=== PATIENT | male | born 1925 | race Two or more races ===

== ENCOUNTER 2016-07-03 11:10 | Inpatient (IN) | payer MEDICARE ==
[~2016-07-03] VITALS: Ht 177.8 cm; Wt 83.6 kg
[2016-07-03] MEDS ORDERED: CITA20TA4 PO (11:48)
[2016-07-03] MEDS ORDERED: FINA5TAB2 PO (11:48)
[2016-07-03] MEDS ORDERED: MORPHINE SULFATE 4 MG/ML INJ IV PUSH ONE (12:30)
[2016-07-03] MEDS ORDERED: ONDANSETRON HCL 4 MG/2 ML VIAL IV PUSH ONE (12:30)
--- NOTE | 2016-07-03 12:37 | PD ---
HPI Chief Complaint: Chest Pain Time Seen by Provider: 12:20 Travel History International Travel<30 days: No Contact w/Intl Traveler<30days: No Traveled to known affect area: No History of Present Illness HPI 89-year-old male complains of back pain. Patient states that the pain started about week ago and got progressively worse since then. Patient denies any recent injury. Patient states the pain is sharp pain localized in midback area. Patient denies any pain radiation. Patient states that the pain has been constant for the past week. Patient states the pain is worse with coughing or movement. Patient denies any chest pain or shortness of breath. Patient denies abdominal pain. Patient denies any dysuria or frequency. Patient denies any fever chills. Patient denies any focal weakness or numbness of extremity. Patient has history of enlarged prostate and on medication for that. On a scale of 1-10 the pain is a 10. PFSH Past Medical History Anxiety: Yes Diminished Hearing: No Genitourinary: Yes (prostate ) Tetanus Vaccination: Unknown Influenza Vaccination: Yes ?: Not Past Surgical History Abdominal Surgery: Yes (right ingunial hernia) Social History Alcohol Use: No Tobacco Use: No Substance Use: No Allergies-Medications (Allergen,Severity, Reaction): Coded Allergies: Penicillin (Verified Allergy, Unknown, rash, 07/03/16) Reported Meds & Prescriptions Reported Meds & Active Scripts Active Reported Citalopram (Citalopram Hydrobromide) 20 Mg Tab 20 Mg PO DAILY Finasteride 5 Mg Tab 5 Mg PO DAILY Do not crush. Review of Systems General / Constitutional: No: Fever Eyes: No: Visual changes HENT: No: Headaches Cardiovascular: No: Chest Pain or Discomfort Respiratory: No: Shortness of Breath Gastrointestinal: No: Abdominal Pain Genitourinary: No: Dysuria Musculoskeletal: No: Pain Skin: No Rash Neurologic: No: Weakness Psychiatric: No: Depression Endocrine: No: Polydipsia Hematologic/Lymphatic: No: Easy Bruising Physical Exam Narrative GENERAL: Well-nourished, well-developed patient. SKIN: Warm and dry. HEAD: Normocephalic. EYES: No scleral icterus. No injection or drainage. NECK: Supple, trachea midline. No JVD or lymphadenopathy. CARDIOVASCULAR: Regular rate and rhythm without murmurs, gallops, or rubs. RESPIRATORY: Breath sounds equal bilaterally. No accessory muscle use. GASTROINTESTINAL: Abdomen soft, non-tender, nondistended. MUSCULOSKELETAL: No cyanosis, or edema. BACK: Patient has moderate tenderness on palpation low thoracic upper lumbar area, without obvious deformity. No CVA tenderness. Negative straight leg raising Neurologic exam normal. Data Data Last Documented VS Vital Signs Date Time Temp Pulse Resp B/P Pulse Ox O2 Delivery O2 Flow Rate FiO2 07/03/16 13:39 80 20 156/69 98 Room Air Orders Complete Blood Count With Diff (07/03/16 12:28) Comprehensive Metabolic Panel (07/03/16 12:28) Prothrombin Time / Inr (Pt) (07/03/16 12:28) Act Partial Throm Time (Ptt) (07/03/16 12:28) Urinalysis - C+S If Indicated (07/03/16 12:28) Iv Access Insert/Monitor (07/03/16 12:28) Ecg Monitoring (07/03/16 12:28) Oximetry (07/03/16 12:28) Ct Thor Spine W/O Contrast (07/03/16 12:28) Ct Lumb Spine W/O Contrast (07/03/16 12:28) Morphine Inj (Morphine Inj) (07/03/16 12:30) Ondansetron Inj (Zofran Inj) (07/03/16 12:30) Hydromorphone Pf Inj (Dilaudid Pf Inj) (07/03/16 13:45) Chest, Single Ap (07/03/16 15:08) Labs Laboratory Tests Test 07/03/16 12:38 White Blood Count 4.4 TH/MM3 Red Blood Count 2.81 MIL/MM3 Hemoglobin 9.9 GM/DL Hematocrit 28.7 % Mean Corpuscular Volume 101.9 FL Mean Corpuscular Hemoglobin 35.0 PG Mean Corpuscular Hemoglobin 34.4 % Concent Red Cell Distribution Width 14.5 % Platelet Count 222 TH/MM3 Mean Platelet Volume 6.9 FL Neutrophils (%) (Auto) 64.7 % Lymphocytes (%) (Auto) 23.9 % Monocytes (%) (Auto) 7.9 % Eosinophils (%) (Auto) 2.1 % Basophils (%) (Auto) 1.4 % Neutrophils # (Auto) 2.8 TH/MM3 Lymphocytes # (Auto) 1.1 TH/MM3 Monocytes # (Auto) 0.3 TH/MM3 Eosinophils # (Auto) 0.1 TH/MM3 Basophils # (Auto) 0.1 TH/MM3 CBC Comment DIFF FINAL Differential Comment Prothrombin Time 11.0 SEC Prothromb Time International 1.0 RATIO Ratio Activated Partial 25.1 SEC Thromboplast Time Sodium Level 137 MEQ/L Potassium Level 4.1 MEQ/L Chloride Level 104 MEQ/L Carbon Dioxide Level 29.5 MEQ/L Anion Gap 4 MEQ/L Blood Urea Nitrogen 20 MG/DL Creatinine 1.50 MG/DL Estimat Glomerular Filtration 44 ML/MIN Rate Random Glucose 113 MG/DL Calcium Level 8.6 MG/DL Total Bilirubin 0.3 MG/DL Aspartate Amino Transf 28 U/L (AST/SGOT) Alanine Aminotransferase 27 U/L (ALT/SGPT) Alkaline Phosphatase 60 U/L Total Protein 11.7 GM/DL Albumin 3.1 GM/DL MDM Medical Decision Making Medical Screen Exam Complete: Yes Emergency Medical Condition: Yes Interpretation(s) Last Impressions Thoracic Spine CT 07/03/16 1228 Signed Impressions: Service Date/Time: Sunday, July 03, 2016 13:10 - CONCLUSION: Undermineralized bones with lytic lesions at multiple levels, as above, with the largest in the T6 vertebral body extending into the right pedicle. The abnormal process has destroyed the posterior cortex of the vertebral body and there is a mass extending into the spinal canal at this level measuring 11 x 6 mm and likely causing severe spinal canal stenosis. Given the appearance and multiplicity of lesions multiple myeloma or metastatic disease are the most likely etiology. Shayne Mcintosh MD Lumbar Spine CT 07/03/16 1228 Signed Impressions: Service Date/Time: Sunday, July 03, 2016 13:10 - CONCLUSION: Multiple lytic lesions involving the lower thoracic spine and lumbar spine characteristic of either metastatic disease or multiple myeloma. No evidence of pathologic fracture. Degenerative disc disease with spondylosis. Jason Torres MD 15 10 PM. CBC WBC of 4.4. Hemoglobin 9.9 hematocrit 40.7. MCV 101.9. BUN 20. Creatinine 1.5. Differential Diagnosis Differential diagnosis including strain, fracture, HNP . Narrative Course 89-year-old male back pain. Morphine 2 mg IV. Zofran 4 mg IV. Dilaudid 1 mg IV. Diagnosis Primary Impression: Bone metastasis Additional Impressions: Spinal stenosis Qualified Code: M48.05 - Spinal stenosis of thoracolumbar region Intractable pain Cheikh Duff MD Jul 03, 2016 12:37
[2016-07-03 12:46] LABS: AUTOMATED NEUTROPHIL # 2.8 TH/MM3 (1.8-7.7); BASOPHIL # 0.1 TH/MM3 (0-0.2); BASOPHIL % 1.4 % (0.0-2.0); EOSINOPHIL # 0.1 TH/MM3 (0-0.4); EOSINOPHIL % 2.1 % (0.0-4.0); HEMATOCRIT 28.7 % (39.0-51.0); HEMO FLAGS DIFF FINAL; LYMPH % 23.9 % (9.0-44.0); LYMPHOCYTE # 1.1 TH/MM3 (1.0-4.8); MEAN CELL VOLUME 101.9 FL (80.0-100.0); MEAN CORPUSCULAR HGB CONC 34.4 % (32.0-36.0); MONO % 7.9 % (0.0-8.0); NEUT % 64.7 % (16.0-70.0); PLATELET COUNT 222 TH/MM3 (150-450); RED BLOOD COUNT 2.81 MIL/MM3 (4.50-5.90); RED CELL DISTRIBUTION WIDTH 14.5 % (11.6-17.2); WHITE BLOOD COUNT 4.4 TH/MM3 (4.0-11.0)
[2016-07-03 12:56] LABS: CHLORIDE 104 MEQ/L (98-107); POTASSIUM 4.1 MEQ/L (3.5-5.1); SODIUM (NA) 137 MEQ/L (136-145)
[2016-07-03 12:59] LABS: ANION GAP 4 MEQ/L (5-15); BICARBONATE 29.5 MEQ/L (21.0-32.0)
[2016-07-03 13:00] LABS: APTT (PATIENT) 25.1 SEC (24.3-30.1); BLOOD UREA NITROGEN 20 MG/DL (7-18)
[2016-07-03 13:01] VITALS: O2SAT 98
[2016-07-03 13:02] LABS: ALT (GPT) 27 U/L (12-78); AST (GOT) 28 U/L (15-37)
[2016-07-03 13:03] LABS: GLOMERULAR FILTRATION RATE 44 ML/MIN (>89)
[2016-07-03 13:04] LABS: TOTAL BILIRUBIN ADULT 0.3 MG/DL (0.2-1.0)
[2016-07-03 13:05] LABS: ALKALINE PHOSPHATASE 60 U/L (45-117)
[2016-07-03 13:39] VITALS: BP 156/69; PULSE 80; RESP 20; O2SAT 98
[2016-07-03] MEDS ORDERED: HYDROmorphone HCL PF 1 MG/ML VIAL IV PUSH ONE (13:45)
--- NOTE | 2016-07-03 14:04 | RADHPO ---
EXAM DATE/TIME: 07/03/2016 13:10 [facility] COMPARISON: No previous studies available for comparison. INDICATIONS : Radiculopathy. No injury. RADIATION DOSE: 43.78 CTDIvol (mGy) ; Combined studies - Thoracic Spine/Lumbar Spine MEDICAL HISTORY : None SURGICAL HISTORY : Inguinal hernia repair. ENCOUNTER: Initial ACUITY: 1 week PAIN SCALE: 6/10 LOCATION: thoracic TECHNIQUE: Volumetric scanning of the thoracic spine was performed. Multiplanar reconstructions in the sagittal , coronal and oblique axial planes were performed. Using automated exposure control and adjustment o f the mA and/or kV according to patient size, radiation dose was kept as low as reasonably achievable to obtain optimal diagnostic quality images. FINDINGS: The bones are undermineralized and there are flowing anterior vertebral osteophytes. There is 4 mm of anterolisthesis of T1 on T2 likely related to facet hypertrophy. There is a lytic destructive lesion within the T6 vertebral body extending into the right pedicle. The T7-T11 vertebral bodies are very undermineralized but I believe there are lytic lesions within the T7, T8 and T11 vertebral bodies. Th ere also potential lytic lesions versus undermineralization within the visualized inferior cervical s pine. T1-T2: No disc herniation, canal stenosis, or neural foraminal stenosis is visualized. T2-T3: No disc herniation, canal stenosis, or neural foraminal stenosis is visualized. T3-T4: No disc herniation, canal stenosis, or neural foraminal stenosis is visualized. T4-T5: No disc herniation, canal stenosis, or neural foraminal stenosis is visualized. T5-T6: No disc herniation, canal stenosis, or neural foraminal stenosis is visualized. There is a destructiv e process which has destroyed the posterior cortex of the vertebral body. T6-T7: There is likely a mass extending from the vertebral body into the spinal canal. It measures approxima tely 11 x 6 mm. It is likely causing severe spinal canal stenosis. T7-T8: No disc herniation, canal stenosis, or neural foraminal stenosis is visualized. T8-T9: No disc herniation, canal stenosis, or neural foraminal stenosis is visualized. T9-T10: No disc herniation, canal stenosis, or neural foraminal stenosis is visualized. T10-T11: No disc herniation, canal stenosis, or neural foraminal stenosis is visualized. T11-T12: There is facet hypertrophy and a diffuse disc bulge. There are endplate osteophytes anteriorly. No sp inal canal or neural foraminal stenosis is visualized. T12-L1: No disc herniation, canal stenosis, or neural foraminal stenosis is visualized. There is a diffuse di sc bulge. The visualized paraspinous structures demonstrate no acute finding. CONCLUSION: Undermineralized bones with lytic lesions at multiple levels, as above, with the largest in the T6 ve rtebral body extending into the right pedicle. The abnormal process has destroyed the posterior rich x of the vertebral body and there is a mass extending into the spinal canal at this level measuring 1 1 x 6 mm and likely causing severe spinal canal stenosis. Given the appearance and multiplicity of le sions multiple myeloma or metastatic disease are the most likely etiology. Shayne Mcintosh MD on July 03, 2016 at 13:53 Board Certified Radiologist. This report was verified electronically.
--- NOTE | 2016-07-03 14:17 | RADHPO ---
EXAM DATE/TIME: 07/03/2016 13:10 [facility] COMPARISON: No previous studies available for comparison. INDICATIONS : Radiculopathy. No injury. RADIATION DOSE: 43.78 CTDIvol (mGy) ; Combined studies - Thoracic Spine/Lumbar Spine MEDICAL HISTORY : None SURGICAL HISTORY : Inguinal hernia repair. ENCOUNTER: Initial ACUITY: 1 week PAIN SCALE: 6/10 LOCATION: lumbar TECHNIQUE: Volumetric scanning of the lumbar spine was performed. Multiplanar reconstructions in the sagittal, coronal and oblique axial planes were performed. Using automated exposure control and adjustment of the mA and/or kV according to patient size, radiation dose was kept as low as reasonab ly achievable to obtain optimal diagnostic quality images. FINDINGS: A lumbar vertebral bodies are intact without evidence of compression deformity. There are several lytic lesions in both the lower thoracic spine and lumbar spine. In the lower thoracic spine there is a large lytic lesion within the T10 vertebral body. There is kane dence of erosion of the superior endplate. In the lumbar spine there are discrete radiolucent lesions in the right pedicle of L1 and L4. Bridging osteophytes are identified throughout the lumbar spine. There are no epidural or paraspinal soft tissue masses. CONCLUSION: Multiple lytic lesions involving the lower thoracic spine and lumbar spine characteri stic of either metastatic disease or multiple myeloma. No evidence of pathologic fracture. Degenerative disc disease with spondylosis. Jason Torres MD on July 03, 2016 at 14:07 Board Certified Radiologist. This report was verified electronically.
[2016-07-03 15:16] LABS: BLOOD, URINE TRACE (NEG); GLUCOSE,URINE NEG (NEG); KETONE, URINE TRACE mg/dL (NEG); NITRITE,URINE NEG (NEG)
[2016-07-03 15:22] LABS: URINE COLOR YELLOW (YELLW/STRAW)
[2016-07-03 15:24] LABS: COMMENT (UR) CULT NOT INDICATED; CULTURE IF INDICATED CULT NOT INDICATED; SQUAMOUS EPITHELIAL CELL URINE 0-5 /hpf (0-5)
[2016-07-03] MEDS ORDERED: ACETAMINOPHEN 325 MG TAB PO PRN (15:45)
[2016-07-03] MEDS ORDERED: MAGNESIUM HYDROXIDE SUSP 30 ML CUP PO PRN (15:45)
[2016-07-03] MEDS ORDERED: SODIUM CHLORIDE 0.9% FLUSH 5 ML FLUSH FLUSH PRN (15:45)
[2016-07-03] MEDS ORDERED: NALOXONE HCL 0.4 MG/ML AMP IV PRN (15:45)
[2016-07-03] MEDS ORDERED: SENNOSIDES 8.6 MG TAB PO PRN (15:45)
[2016-07-03 15:48] VITALS: BP 178/74; PULSE 98; RESP 20; O2SAT 98
[2016-07-03] MEDS: HEPARIN SODIUM - SQ 10,000 UNITS/ML VIAL SQ SCH (16:15)
--- NOTE | 2016-07-03 16:20 | RADHPO ---
EXAM DATE/TIME: 07/03/2016 15:25 [facility] COMPARISON: No previous studies available for comparison. INDICATIONS : Back pain. Short of breath MEDICAL HISTORY : None. SURGICAL HISTORY : None. ENCOUNTER: Initial ACUITY: 1 day PAIN SCORE: 5/10 LOCATION: spine FINDINGS: Portable AP view of the chest demonstrates a normal-sized cardiac silhouette with calcification of th e aorta. Multiple EKG lines overlie the patient. No effusion, consolidation, or pneumothorax is ident ified. Bones and soft tissues demonstrate no acute finding. CONCLUSION: No acute cardiopulmonary abnormality is identified. Shayne Mcintosh MD on July 03, 2016 at 16:15 Board Certified Radiologist. This report was verified electronically.
[2016-07-03] MEDS ORDERED: IOHEXOL 350 MG/ML 10 ML VIAL (for RAD DIAG) IV ONE (16:45)
[2016-07-03] MEDS: DOCUSATE SODIUM 100 MG CAP PO SCH (17:00)
--- NOTE | 2016-07-03 17:13 | RADHPO ---
EXAM DATE/TIME: 07/03/2016 16:23 [facility] COMPARISON: CT THORACIC SPINE W/O CONTRAST, July 03, 2016, 13:10. INDICATIONS : Short of breath, evaluate for mass. IV CONTRAST: 93 cc Omnipaque 350 (iohexol) IV RADIATION DOSE: 17.75 CTDIvol (mGy) MEDICAL HISTORY : None SURGICAL HISTORY : Inguinal hernia repair. ENCOUNTER: Initial ACUITY: 1 day PAIN SCALE: 4/10 LOCATION: chest TECHNIQUE: Volumetric scanning of the chest was performed. Using automated exposure control and adjustment of t he mA and/or kV according to patient size, radiation dose was kept as low as reasonably achievable to obtain optimal diagnostic quality images. FINDINGS: LUNGS: There is respiratory motion artifact. Dependent atelectasis is present within both lower lobes. No co nsolidation or pneumothorax is visualized. No pulmonary nodule is seen. PLEURA: There is no pleural thickening or pleural effusion. MEDIASTINUM: The heart and great vessels demonstrate no acute abnormality. There is coronary artery calcification and severe atherosclerotic disease of the aorta. There is no mediastinal or hilar lymphadenopathy. AXILLAE: Within normal limits. No lymphadenopathy. SKELETAL: There is a lytic lesion within T6 and likely other levels. Please refer to thoracic spine CT report f or further description. The ribs and sternum demonstrate no acute finding. MISCELLANEOUS: Please refer to abdomen and pelvis CT report for description of the subdiaphragmatic findings. There is bilateral gynecomastia. CONCLUSION: 1. Please refer to thoracic spine CT report for description of the lytic lesions within the spine. 2. There is respiratory motion artifact but no acute pulmonary abnormality is identified and no pulmo nary nodule is seen. 3. Nonacute findings include coronary artery calcification, severe atherosclerotic disease, and bilat eral gynecomastia. Shayne Mcintosh MD on July 03, 2016 at 17:08 Board Certified Radiologist. This report was verified electronically.
[2016-07-03 17:21] VITALS: BP 166/73; PULSE 108; RESP 18; O2SAT 98
--- NOTE | 2016-07-03 17:36 | RADHPO ---
EXAM DATE/TIME: 07/03/2016 16:23 [facility] COMPARISON: No previous studies available for comparison. INDICATIONS : Abdomen pain, evaluate for mass. IV CONTRAST: 93 cc Omnipaque 350 (iohexol) IV ORAL CONTRAST: No oral contrast ingested. RADIATION DOSE: 17.75 CTDIvol (mGy) ; Combined studies - Thorax/Abdomen/Pelvis MEDICAL HISTORY : None SURGICAL HISTORY : Inguinal hernia repair. ENCOUNTER: Initial ACUITY: 1 day PAIN SCALE: 4/10 LOCATION: abdomen TECHNIQUE: Volumetric scanning of the abdomen and pelvis was performed. Using automated exposure control and ad justment of the mA and/or kV according to patient size, radiation dose was kept as low as reasonably achievable to obtain optimal diagnostic quality images. FINDINGS: There is respiratory motion artifact. LOWER LUNGS: Please refer to chest CT report for description of the supradiaphragmatic findings. LIVER: Homogeneous density with a 6 mm cyst in the central liver. No other lesion is seen. There is no dila tion of the biliary tree. No calcified gallstones. SPLEEN: Normal size without lesion. PANCREAS: Within normal limits. KIDNEYS: Normal in size and shape. There is no mass, stone or hydronephrosis. There are 3 low density lesions in the left kidney measuring between 8 mm and 5.5 cm. There is a single 3.4 cm low-density lesion in the right mid kidney. All of these have density measurements characteristic of simple cysts. ADRENAL GLANDS: Within normal limits. VASCULAR: There is no aortic aneurysm. There is moderate atherosclerotic disease. BOWEL/MESENTERY: The stomach, small bowel, and colon demonstrate no acute abnormality. Groundglass attenuation is pre sent within the jejunal mesentery. There is mild sigmoid diverticulosis. There is no free intraperito clarisse air or fluid. ABDOMINAL WALL: Within normal limits. RETROPERITONEUM: There is no lymphadenopathy. BLADDER: No wall thickening or mass. REPRODUCTIVE: The prostate gland is enlarged. INGUINAL: There is no lymphadenopathy or hernia. MUSCULOSKELETAL: Please refer to lumbar spine CT report for description of the lumbar spine findings. Otherwise, no ac [place] osseous abnormality is visualized. CONCLUSION: 1. No acute finding is identified in the abdomen or pelvis. Please refer to lumbar spine CT for descr iption of the lumbar spine findings. 2. Nonacute findings include bilateral renal cysts, severe atherosclerotic disease, sigmoid diverticu losis, and prostatomegaly. Shayne Mcintosh MD on July 03, 2016 at 17:19 Board Certified Radiologist. This report was verified electronically.
--- NOTE | 2016-07-03 19:34 | RADHPO ---
EXAM DATE/TIME: 07/03/2016 18:14 [facility] COMPARISON: CT LUMBAR SPINE W/O CONTRAST, July 03, 2016, 13:10. CT THORACIC SPINE W/O CONTRAST, July 03, 2016, 13:10. INDICATIONS : Pain MEDICAL HISTORY : None. SURGICAL HISTORY : ENCOUNTER: Initial ACUITY: 1 day PAIN SCORE: 8/10 LOCATION: Spine FINDINGS: Bone survey was performed of the axial and appendicular skeleton. The upper extremities are unremarkable. The lower extremities are demonstrate no abnormality. Patient has a known scattered lytic lesions of the thoracic and lumbar spines and please refer to the CT spine report. Don't clearly see a lytic lesion of the cervical spine. 3 bulky osteophyte formatio n seen anteriorly and widely the C5/C6.. Suspected parietal lytic lesions measuring 6 and 10 mm.. The visualized heart, lungs and abdominal structures are unremarkable. Bony mineralization is normal . CONCLUSION: The known thoracic and lumbar spine lytic lesions are not well seen radiographically. Please refer to the CT report. There degenerative changes without definite lytic lesion of the cervical spine. There are 6 and 9 mm lesions suspected of the skull. Shayne Singh MD on July 03, 2016 at 19:29 Board Certified Radiologist. This report was verified electronically.
[2016-07-03 20:01] VITALS: BP 137/60
[2016-07-03 20:58] VITALS: BP 145/81; PULSE 90; RESP 17; TEMP 99; O2SAT 94
[2016-07-03 21:04] LABS: URINE TOTAL PROTEIN TIMED 22.1 MG/DL
[2016-07-03 21:59] LABS: TOTAL PROTEIN SPE 11.6 GM/DL (6.0-7.6)
[2016-07-04] VITALS (9 sets, daily range): BP systolic 115–169; BP diastolic 54–72; PULSE 55–88; RESP 16–18; TEMP 98.3–99.1; O2SAT 92–99
[2016-07-04] MEDS: SODIUM CHLORIDE 0.9% FLUSH 5 ML FLUSH FLUSH SCH ×3 (00:17→22:08)
[2016-07-04] MEDS: MORPHINE SULFATE 4 MG/ML INJ IV PUSH PRN ×5 (00:17→23:12)
[2016-07-04] MEDS: HEPARIN SODIUM - SQ 10,000 UNITS/ML VIAL SQ SCH ×2 (04:31→13:49)
[2016-07-04] MEDS: DOCUSATE SODIUM 100 MG CAP PO SCH ×2 (04:32→17:56)
--- NOTE | 2016-07-04 06:01 | MB ---
cc: JESSICA NEELY HUNG M.D. DATE OF 02/04/1926 DATE OF SERVICE 07/03/[address] Cheikh Duff CHIEF COMPLAINT [address]. Duff requested consultation with Mr. Davey regarding lytic bone lesions suspicious for metastatic malignant melanoma. HISTORY OF PRESENT ILLNESS Mr. Davey is an 89-year-old man who reports no significant past history. He has anxiety and benign prostatic hypertrophy. He denies any previous cancer. His father lived to be 96. His mother lived to be 92 at. He is 89 years old now. He has not known himself to be anemic. He was found to have a hemoglobin of 9.9 on admission, MCV 101.9. His renal function is decreased at 44%. BUN of 20, creatinine 1.5. His total protein is elevated at 11.7. He came in because of chest pain. He has noted pain that became progressively worse radiating from the back. His pain was 10/10. He reports that he is otherwise active. He does cooking, gardening and is active around the house. He is now retired. He denies any injury or excessive lifting to produce the pain. Imaging study during his ER visit shows under-mineralized bones with lytic lesions of multiple levels, the largest in the T6 vertebral body, extends into the right pedicle. There is a mass extending into the spinal canal at T6. The mass measures 11 x 6-mm. There is a severe canal stenosis and there is a multiplicity of lytic lesions concerning for multiple myeloma versus metastatic cancer. CT scan of the chest shows respiratory motion artifact. There is no pulmonary nodules. CT scan of the abdomen shows bilateral renal cysts, atherosclerotic disease, sigmoid diverticulosis and prostate enlargement. He denies any fevers, chills or night sweats. He has not been sick before. His pain came along; it has gotten progressively worse. He denies any headaches, no vision changes. He is eager to return back home. He is worried about his not being able to drive at night. He has some difficulty with urination. He denies any problems with his bowel movements. Denies any bleeding. No melena or bright red blood per rectum. He had no prior history of anemia before. PAST MEDICAL HISTORY Anxiety. Benign prostatic hypertrophy. PAST SURGICAL HISTORY Right inguinal hernia repair. SOCIAL HISTORY Denies any tobacco, alcohol or illicit drug use. He is , lives with his . He is retired from [employer]. He worked in [place] before retiring to the [employer]. He has three children; two are in [place] and one in [place] also. ALLERGIES PENICILLIN. CURRENT MEDICATIONS 1. Finasteride. 2. Citalopram. FAMILY HISTORY No family history of cancer. Both parents lived to be in their 90s. He reports a sister with also bone cancer who was from [place]. PHYSICAL EXAMINATION VITAL SIGNS: Temperature - afebrile, heart rate 108, respiratory rate 18, blood pressure 166/73, saturation 98%. GENERAL: Mr. Davey is a well-developed, well-nourished man who looks younger than stated age. He looks anxious. HEENT: His pupils are round, reactive to light and accommodation. Oropharynx is clear. NECK: Supple with no adenopathy. LUNGS: Clear. CARDIOVASCULAR: Exam reveals normal rate and rhythm. ABDOMEN: Benign. LOWER EXTREMITIS: With no clubbing, cyanosis or edema. NEUROLOGICAL EXAM: Nonfocal. IMAGING STUDIES Reviewed. ASSESSMENT AND PLAN Mr. Davey is an 89-year-old man with anxiety and benign prostatic hypertrophy. He presents with chest pain and turns out to have a T6 lesion. He has multiple lesions on imaging evaluation of both thoracic and lumbar spine. I had a lengthy discussion with Mr. Davey and his present at the consultation. In light of the anemia, renal insufficiency and elevated total protein, the picture is very consistent with multiple myeloma. He will need a skeletal survey to confirm a diagnosis. Furthermore, we will need a bone marrow biopsy evaluation to determine the nature of his multiple myeloma involvement. We discussed there are many treatments for multiple myeloma. He is anxious to start them. We discussed the primary objective is to stabilize his thoracic spine. We will defer to Neurosurgery if additional stabilization is necessary. We will see if he is a candidate for kyphoplasty. In the meantime his pain is managed with p.r.n. morphine. We will monitor closely constipation symptoms. Interestingly, his calcium is not elevated. We will check other causes for macrocytosis such as B12 and folate deficiency. Quantitative immunoglobulins will be checked. A serum protein electrophoresis has already been ordered. We will complement that with an immunofixation. Mr. Davey and his 's questions were answered to their satisfaction. MD VANDANA Reynaga/STEVE /6:00 PM /5:47 AM
[2016-07-04 06:24] LABS: AUTOMATED NEUTROPHIL # 2.5 TH/MM3 (1.8-7.7); BASOPHIL % 0.5 % (0.0-2.0); EOSINOPHIL # 0.1 TH/MM3 (0-0.4); HEMATOCRIT 27.5 % (39.0-51.0); HEMO FLAGS DIFF FINAL; LYMPH % 27.3 % (9.0-44.0); LYMPHOCYTE # 1.1 TH/MM3 (1.0-4.8); MEAN CELL VOLUME 101.4 FL (80.0-100.0); MEAN CORPUSCULAR HEMOGLOBIN 35.6 PG (27.0-34.0); MEAN CORPUSCULAR HGB CONC 35.1 % (32.0-36.0); MONO % 9.6 % (0.0-8.0); NEUT % 60.6 % (16.0-70.0); PLATELET COUNT 200 TH/MM3 (150-450); RED BLOOD COUNT 2.71 MIL/MM3 (4.50-5.90); RED CELL DISTRIBUTION WIDTH 14.9 % (11.6-17.2); WHITE BLOOD COUNT 4.2 TH/MM3 (4.0-11.0)
[2016-07-04 06:40] LABS: BICARBONATE 29.7 MEQ/L (21.0-32.0)
[2016-07-04] MEDS ORDERED: GADODIAMIDE PF 287 MG/ML 5 ML VIAL (for RAD MRI) IV ONE (11:07)
--- NOTE | 2016-07-04 11:33 | HHI.HP ---
[facility] Service [facility] Primary Care Physician Dr. Landin Admission Diagnosis spine metastasis. Intractable pain Diagnoses: Chief Complaint: BACK PAIN, WEAKNESS (Delilah Singh) Travel History International Travel<30 Days: No Contact w/Intl Traveler <30 Da: No Traveled to Known Affected Are: No (Delilah Singh) History of Present Illness Pt. is an an 89-year-old man who reports no significant past history other than anxiety, BPH. Patient presented to the emergency room complaining of mid to low back pain for the last week, nor recent injury, no falls. Indicates the pain is sharp and localized to the mid to lower back area. Denies any paresthesias. No loss of bowel or bladder function. No fever, no chills. No other symptoms such as chest pain shortness of breath. No urinary symptoms. Indicates that pain became so severe that he was having difficulty getting up from bed. Patient indicates he is very healthy and was very active until now. Patient presented to the emergency room where he was evaluated and was noted with anemia which is a new finding. Denies any blood on the stool, weight loss. Denies any hematemesis. He was noted with some renal insufficiency which is also a new finding. He had imaging studies in the ER showing undermineralized bones with lytic lesions of multiple levels, the largest in the T6 vertebral body, extends into the right pedicle. There is a mass extending to the spinal canal at T6. The mass measures 11 x 6 mm. There is severe canal stenosis and there is a multiplicity of white thick lesions concerning for multiple myeloma versus metastatic cancer. CT scan of the chest shows respiratory motion artifact, no pulmonary nodules. CT scan of the abdomen shows bilateral renal cysts, atherosclerotic disease, sigmoid diverticulosis and prostate enlargement. Patient was evaluated by Dr. Razo. Bone marrow biopsy was order and has been completed. Patient endorses family history of cancer, one brother from colon cancer. Patient is admitted for further evaluation and treatment. (Delilah Singh) Review of Systems Constitutional: DENIES: Diaphoretic episodes, Fatigue, Fever, Weight gain, Weight loss, Chills, Dizziness, Change in appetite, Night Sweats Endocrine: DENIES: Heat/cold intolerance, Polydipsia, Polyuria, Polyphagia Eyes: DENIES: Blurred vision, Diplopia, Eye inflammation, Eye pain, Vision loss , Photosensitivity, Double Vision Ears, nose, mouth, throat: DENIES: Tinnitus, Hearing loss, Vertigo, Nasal discharge, Oral lesions, Throat pain, Hoarseness, Ear Pain, Running Nose, Epistaxis, Sinus Pain, Toothache, Odynophagia Respiratory: DENIES: Apneas, Cough, Snoring, Wheezing, Hemoptysis, Sputum production, Shortness of breath Cardiovascular: DENIES: Chest pain, Palpitations, Syncope, Dyspnea on Exertion , PND, Lower Extremity Edema, Orthopnea, Claudication Gastrointestinal: DENIES: Abdominal pain, Black stools, Bloody stools, Constipation, Diarrhea, Nausea, Vomiting, Difficulty Swallowing, Anorexia Musculoskeletal: COMPLAINS OF: Joint pain, Muscle aches, Stiffness, Joint Swelling, Back pain, Neck pain Integumentary: DENIES: Abnormal pigmentation, Nail changes, Pruritus, Rash Hematologic/lymphatic: DENIES: Bruising, Lymphadenopathy Immunologic/allergic: DENIES: Eczema, Urticaria Neurologic: DENIES: Abnormal gait, Headache, Localized weakness, Paresthesias, Seizures, Speech Problems, Tremor, Poor Balance Psychiatric: DENIES: Anxiety, Confusion, Mood changes, Depression, Hallucinations, Agitation, Suicidal Ideation, Homicidal Ideation, Delusions ( Delilah Singh) Past Family Social History Past Medical History Anxiety. Benign prostatic hypertrophy. Past Surgical History Appendectomy Right inguinal hernia repair. Reported Medications Reported Meds & Active Scripts Active Reported Citalopram (Citalopram Hydrobromide) 20 Mg Tab 20 Mg PO DAILY Finasteride 5 Mg Tab 5 Mg PO DAILY Do not crush. (Delilah Singh) Allergies: Coded Allergies: Penicillin (Verified Allergy, Unknown, rash, 07/03/16) Active Ordered Medications Inpatient Medications Acetaminophen (Tylenol) 650 mg ONCE ONCE PO Last administered on 07/04/16 13: 48; Start 07/04/16 at 13:45; Stop 07/04/16 at 13:46; Status DC Docusate Sodium (Colace) 100 mg Q12H PO Last administered on 07/04/16 17:56; Start 07/03/16 at 17:00 Heparin Sodium (Porcine) (Heparin Inj) 5,000 units Q12H SQ Last administered on 07/04/16 04:31; Start 07/03/16 at 16:00 Hydromorphone HCl (Dilaudid Pf Inj) 1 mg ONCE ONCE IV PUSH Last administered on 07/03/16 13:52; Start 07/03/16 at 13:45; Stop 07/03/16 at 13:46; Status DC IV Flush (NS Flush) 2 ml BID FLUSH Last administered on 07/04/16 08:32; Start 07/03/16 at 21:00 Magnesium Hydroxide (Milk Of Magnesia Liq) 30 ml Q12H PRN PO CONSTIPATION; Start 07/03/16 at 15:45 Morphine Sulfate (Morphine Inj) 2 mg Q3H PRN IV PUSH PAIN SCALE 4 TO 10 Last administered on 07/04/16 17:55; Start 07/03/16 at 18:15 Naloxone HCl (Narcan Inj) 0.4 mg UNSCH PRN IV SEE LABEL COMMENTS; Start at 15:45 Ondansetron HCl (Zofran Inj) 4 mg ONCE ONCE IV PUSH Last administered on 12:49; Start 07/03/16 at 12:30; Stop 07/03/16 at 12:32; Status DC Sennosides (Senokot) 17.2 mg Q12H PRN PO CONSTIPATION; Start 07/03/16 at 15:45 Family History Mother from old age, hx HTN Father, not sure. Brother from colon cancer Social History Lives at home with , has 3 grown children. Very active, no alcohol, no substance abuse, tobacco abuse (Delilah Singh) Physical Exam Vital Signs Vital Signs Date Time Temp Pulse Resp B/P Pulse Ox O2 Delivery O2 Flow Rate FiO2 07/04/16 08:00 99.1 65 16 138/65 98 07/04/16 04:25 99.0 79 17 132/62 97 07/04/16 00:25 98.7 88 18 130/61 93 07/04/16 00:22 18 07/03/16 20:58 99.0 90 17 145/81 94 07/03/16 20:01 84 16 137/60 94 07/03/16 17:21 108 18 166/73 98 Room Air 07/03/16 15:48 98 20 178/74 98 Room Air 07/03/16 13:39 80 20 156/69 98 Room Air 07/03/16 13:02 20 98 Room Air 3/6/17 13:01 98 Room Air Physical Exam GENERAL: This is a well-nourished, well-developed patient, in no apparent distress. SKIN: No rashes, ecchymoses or lesions. Cool and dry. HEAD: Atraumatic. Normocephalic. No temporal or scalp tenderness. EYES: Pupils equal round and reactive. Extraocular motions intact. No scleral icterus. No injection or drainage. ENT: Nose without bleeding, purulent drainage or septal hematoma. Throat without erythema, tonsillar hypertrophy or exudate. Uvula midline. Airway patent. NECK: Trachea midline. No JVD or lymphadenopathy. Supple, nontender, no meningeal signs. CARDIOVASCULAR: Regular rate and rhythm without murmurs, gallops, or rubs. RESPIRATORY: Clear to auscultation. Breath sounds equal bilaterally. No wheezes , rales, or rhonchi. GASTROINTESTINAL: Abdomen soft, non-tender, nondistended. No hepato-splenomegaly , or palpable masses. No guarding. MUSCULOSKELETAL: No joint abnormality. Complains of tenderness on palpation to the low thoracic upper lumbar area. No obvious deformity noted. Negative straight leg rising. NEUROLOGICAL: Awake and alert. Cranial nerves II through XII intact. Motor and sensory grossly within normal limits. Five out of 5 muscle strength in all muscle groups. Normal speech. Laboratory Laboratory Tests Test 07/03/16 07/03/16 07/03/16 07/03/16 12:38 15:00 16:00 17:08 White Blood Count 4.4 Red Blood Count 2.81 Hemoglobin 9.9 Hematocrit 28.7 Mean Corpuscular Volume 101.9 Mean Corpuscular Hemoglobin 35.0 Mean Corpuscular Hemoglobin 34.4 Concent Red Cell Distribution Width 14.5 Platelet Count 222 Mean Platelet Volume 6.9 Neutrophils (%) (Auto) 64.7 Lymphocytes (%) (Auto) 23.9 Monocytes (%) (Auto) 7.9 Eosinophils (%) (Auto) 2.1 Basophils (%) (Auto) 1.4 Neutrophils # (Auto) 2.8 Lymphocytes # (Auto) 1.1 Monocytes # (Auto) 0.3 Eosinophils # (Auto) 0.1 Basophils # (Auto) 0.1 CBC Comment DIFF FINAL Differential Comment Prothrombin Time 11.0 Prothromb Time International 1.0 Ratio Activated Partial 25.1 Thromboplast Time Sodium Level 137 Potassium Level 4.1 Chloride Level 104 Carbon Dioxide Level 29.5 Anion Gap 4 Blood Urea Nitrogen 20 Creatinine 1.50 Estimat Glomerular Filtration 44 Rate Random Glucose 113 Calcium Level 8.6 Total Bilirubin 0.3 Aspartate Amino Transf 28 (AST/SGOT) Alanine Aminotransferase 27 (ALT/SGPT) Alkaline Phosphatase 60 Total Protein 11.7 11.6 Albumin 3.1 Vitamin B12 Level 270 25-Hydroxy Vitamin D Total 39.5 Urine Color YELLOW Urine Turbidity CLEAR Urine pH 6.0 Urine Specific [place] 1.026 Urine Protein NEG Urine Glucose (UA) NEG Urine Ketones TRACE Urine Occult Blood TRACE Urine Nitrite NEG Urine Bilirubin NEG Urine Leukocyte Esterase NEG Urine Squamous Epithelial 0-5 Cells Microscopic Urinalysis Comment CULT NOT INDICATED Erythrocyte Sedimentation Rate 100 Prostate Specific Antigen 1.02 Test 07/04/16 06:00 White Blood Count 4.2 Red Blood Count 2.71 Hemoglobin 9.7 Hematocrit 27.5 Mean Corpuscular Volume 101.4 Mean Corpuscular Hemoglobin 35.6 Mean Corpuscular Hemoglobin 35.1 Concent Red Cell Distribution Width 14.9 Platelet Count 200 Mean Platelet Volume 7.9 Neutrophils (%) (Auto) 60.6 Lymphocytes (%) (Auto) 27.3 Monocytes (%) (Auto) 9.6 Eosinophils (%) (Auto) 2.0 Basophils (%) (Auto) 0.5 Neutrophils # (Auto) 2.5 Lymphocytes # (Auto) 1.1 Monocytes # (Auto) 0.4 Eosinophils # (Auto) 0.1 Basophils # (Auto) 0.0 CBC Comment DIFF FINAL Differential Comment Sodium Level 137 Potassium Level 4.0 Chloride Level 103 Carbon Dioxide Level 29.7 Anion Gap 4 Blood Urea Nitrogen 19 Creatinine 1.37 Estimat Glomerular Filtration 49 Rate Random Glucose 94 Calcium Level 8.8 Immunoglobulin G Total 6070 Immunoglobulin A 33 Immunoglobulin M 19 (Delilah Singh) Result Diagram: 07/04/16 0600 07/04/16 0600 Imaging Last Impressions Bone Biopsy CT 07/04/16 1007 Signed Impressions: Service Date/Time: Monday, July 04, 2016 15:36 - CONCLUSION: 1. Uncomplicated CT guided bone marrow aspirate. 2. Uncomplicated CT guided bone marrow biopsy. Shayne Mcintosh MD Entire Spine MRI 07/04/16 0000 Signed Impressions: Service Date/Time: Monday, July 04, 2016 10:34 - CONCLUSION: 1. Innumerable bone lesions throughout the cervical, thoracic, and lumbar spine. The largest occupies the T6 and T10 vertebral bodies. 2. The prior CT suggested a possible mass extending from T6 into the spinal canal. However, there is no spinal canal mass at this level or spinal canal stenosis. 3. There is moderate spinal canal stenosis at L3-L4 secondary to disc bulge and facet and ligamentum flavum hypertrophy. Shayne Mcintosh MD Chest CT 07/03/16 1536 Signed Impressions: Service Date/Time: Sunday, July 03, 2016 16:23 - CONCLUSION: 1. Please refer to thoracic spine CT report for description of the lytic lesions within the spine. 2. There is respiratory motion artifact but no acute pulmonary abnormality is identified and no pulmonary nodule is seen. 3. Nonacute findings include coronary artery calcification, severe atherosclerotic disease, and bilateral gynecomastia. hSayne Mcintosh MD Abdomen/Pelvis CT 07/03/16 1536 Signed Impressions: Service Date/Time: Sunday, July 03, 2016 16:23 - CONCLUSION: 1. No acute finding is identified in the abdomen or pelvis. Please refer to lumbar spine CT for description of the lumbar spine findings. 2. Nonacute findings include bilateral renal cysts, severe atherosclerotic disease, sigmoid diverticulosis, and prostatomegaly. Shayne Mcintosh MD Chest X-Ray 07/03/16 1508 Signed Impressions: Service Date/Time: Sunday, July 03, 2016 15:25 - CONCLUSION: No acute cardiopulmonary abnormality is identified. Shayne Mcintosh MD Thoracic Spine CT 07/03/16 1228 Signed Impressions: Service Date/Time: Sunday, July 03, 2016 13:10 - CONCLUSION: Undermineralized bones with lytic lesions at multiple levels, as above, with the largest in the T6 vertebral body extending into the right pedicle. The abnormal process has destroyed the posterior cortex of the vertebral body and there is a mass extending into the spinal canal at this level measuring 11 x 6 mm and likely causing severe spinal canal stenosis. Given the appearance and multiplicity of lesions multiple myeloma or metastatic disease are the most likely etiology. Shayne Mcintosh MD Lumbar Spine CT 07/03/16 1018 Signed Impressions: Service Date/Time: Sunday, July 03, 2016 13:10 - CONCLUSION: Multiple lytic lesions involving the lower thoracic spine and lumbar spine characteristic of either metastatic disease or multiple myeloma. No evidence of pathologic fracture. Degenerative disc disease with spondylosis. Jason Torres MD Bone Osseous Survey 07/03/16 0000 Signed Impressions: Service Date/Time: Sunday, July 03, 2016 18:14 - CONCLUSION: The known thoracic and lumbar spine lytic lesions are not well seen radiographically. Please refer to the CT report. There degenerative changes without definite lytic lesion of the cervical spine. There are 6 and 9 mm lesions suspected of the skull. Shayne Singh MD (Delilah Singh) Assessment and Plan Problem List: (1) Intractable pain (2) Bone metastasis (3) Anemia (4) Renal insufficiency (5) Spinal stenosis Assessment and Plan Admit to Dr. Acosta 89-year-old elderly male presented to the emergency room with intractable low back pain, found with multiple light pink lesion along the spine, largest in the T6 vertebral body as well as a mass extending into the spinal canal likely causing severe spinal canal stenosis area possible multiple myeloma versus metastatic disease. Patient status post bone marrow biopsy -Dr. Razo has been consulted, her input is appreciated Neurosurgery evaluation as well -Continue with pain management -Follow up on results of bone marrow biopsy Anemia, this is a new finding. Denies any blood in his stool. -Further workup per oncology Follow CBC Renal insufficiency, this is a new finding Continue cautious hydration Follow BMP History of enlarged prostate Continue with finasteride 5 mg by mouth daily For DVT prophylaxis, SCDs, resume heparin tomorrow Plan of care has been discussed with the patient, attending and registered nurse. Further management of the patient will be dependent on hospital course This patient was seen by myself and Dr. Acosta, this H&P is written on his behalf (Delilah Singh) Assessment and Plan seen, examined by myself, Dr Acosta, today Discussed with patient Discussed with oncology team Suspected multiple myeloma Bone marrow biopsy today Possible discharge tomorrow Discussed with mid level provider The exam, history, and the medical decision-making described in the above note were completed with the assistance of the mid-level provider. I reviewed the findings presented. I attest that I had a [id number] encounter with the patient on the same day, and personally performed and documented my assessment and findings in the medical record. (José Miguel Acosta MD) Physician Certification 2 Midnight Certification Type: Admission for Inpatient Services Order for Inpatient Services The services are ordered in accordance with Medicare regulations or non- Medicare payer requirements, as applicable. In the case of services not specified as inpatient-only, they are appropriately provided as inpatient services in accordance with the 2-midnight benchmark. Estimated LOS (days): 2 2 days is the estimated time the patient will need to remain in the hospital, assuming treatment plan goals are met and no additional complications. Post-Hospital Plan: SNF (Delilah Singh) Problem Qualifiers (1) Anemia: Qualified Code: D64.9 - Anemia, unspecified type (2) Spinal stenosis: Qualified Code: M48.05 - Spinal stenosis of thoracolumbar region Delilah Singh Jul 04, 2016 11:33 José Miguel Acosta MD Jul 04, 2016 20:52
[2016-07-04 11:59] LABS: ALBUMIN SPE 4.37 GM/DL (3.50-5.00); ALPHA 1 GLOBULIN 0.29 GM/DL (0.11-0.29); ALPHA 2 GLOBULIN 0.79 GM/DL (0.22-1.00); BETA GLOBULINS (SPE) 0.7 GM/DL (0.53-1.03)
--- NOTE | 2016-07-04 12:48 | RADRPT ---
EXAM DATE/TIME: 07/04/2016 10:34 [facility] COMPARISON: CT ABDOMEN & PELVIS W CONTRAST, July 03, 2016, 16:23. CT LUMBAR SPINE W/O CONTRAST, July 03, 2016, 13:10. CT THORACIC SPINE W/O CONTRAST, July 03, 2016, 13:10. CT THORAX W CONTRAST, July 03, 2016 , 16:23. INDICATIONS : Metastatic disease. CONTRAST: 15 cc Omniscan (gadodiamide) IV MEDICAL HISTORY : Benign prostatic hyperplasia, (BPH) SURGICAL HISTORY : Inguinal hernia repair. ENCOUNTER: Initial ACUITY: 2 day PAIN SCORE: 8/10 LOCATION: back TECHNIQUE: Screening MRI of the entire spinal axis was performed in the sagittal and axial planes. FINDINGS: There are innumerable T1 hypointense and T2 hyperintense enhancing lesions throughout the cervical, t horacic, and lumbar spine. The largest lesions are within the T6 vertebral body and T10 vertebral bod y. There is also a lesion within the L2 spinous process. Vertebral body height is maintained. There i s 3 mm of anterolisthesis of T1 on a T2. Otherwise, no other anterolisthesis or retrolisthesis is pre sent. Within the cervical spine no significant canal stenosis is present. There is facet arthrosis at T1-T2 . Within the thoracic spine there are and plates anteriorly at almost all levels. But was thought to re present a mass at the T6 level was actually the spinal cord. The lesion within the T6 vertebral body extends into the right pedicle and mildly bulges the posterior cortex but does not extend into the ca nal. Within the lumbar spine there is facet and ligamentum hypertrophy at T12-L1 mildly narrowing the bashir l. There are is a diffuse disc bulge with facet and ligamentum flavum hypertrophy at L3-L4 causing mo derate spinal canal stenosis. The visualized surrounding structures demonstrate no acute finding. CONCLUSION: 1. Innumerable bone lesions throughout the cervical, thoracic, and lumbar spine. The largest occupies the T6 and T10 vertebral bodies. 2. The prior CT suggested a possible mass extending from T6 into the spinal canal. However, there is no spinal canal mass at this level or spinal canal stenosis. 3. There is moderate spinal canal stenosis at L3-L4 secondary to disc bulge and facet and ligamentum flavum hypertrophy. Shyane Mcintosh MD on July 04, 2016 at 12:35 Board Certified Radiologist. This report was verified electronically.
--- NOTE | 2016-07-04 13:06 | PD.CONS ---
[facility] Service Neurosurg Consult Requested By dr ly Reason for Consult metastasis to spine Primary Care Physician Non-Staff History of Present Illness This is an 89-year-old man with history of anxiety and benign prostatic hypertrophy. He denies any previous cancer. Mr. Davey came to the ER with chest pain. He has noted pain that became progressively worse radiating from the back. His pain was described as 10/. CT scan done at [facility] showed under-mineralized bones with lytic lesions of multiple levels, the largest in the T6 vertebral body, extends into the right pedicle. Apparently he was found to have a hemoglobin of 9.9 and a decreased renal function to 44%. CT scan of the chest showed no pulmonary nodules. He denies any fevers, chills or night sweats. He has not been sick before. His pain has gotten progressively worse. He denies any headaches or vision changes. A neurosurgical consultation was requested Review of Systems Constitutional: DENIES: Diaphoretic episodes, Fatigue, Fever, Weight gain, Weight loss, Chills, Dizziness, Change in appetite, Night Sweats Endocrine: DENIES: Heat/cold intolerance, Polydipsia, Polyuria, Polyphagia Eyes: DENIES: Blurred vision, Diplopia, Eye inflammation, Eye pain, Vision loss , Photosensitivity, Double Vision Ears, nose, mouth, throat: DENIES: Tinnitus, Hearing loss, Vertigo, Nasal discharge, Oral lesions, Throat pain, Hoarseness, Ear Pain, Running Nose, Epistaxis, Sinus Pain, Toothache, Odynophagia Respiratory: DENIES: Apneas, Cough, Snoring, Wheezing, Hemoptysis, Sputum production, Shortness of breath Cardiovascular: COMPLAINS OF: Chest pain, DENIES: Palpitations, Syncope, Dyspnea on Exertion, PND, Lower Extremity Edema, Orthopnea, Claudication Gastrointestinal: DENIES: Abdominal pain, Black stools, Bloody stools, Constipation, Diarrhea, Nausea, Vomiting, Difficulty Swallowing, Anorexia Genitourinary: DENIES: Sexual dysfunction, Urinary frequency, Urinary incontinence, Urgency, Hematuria, Dysuria, Nocturia, Penile Discharge, Testicular Pain, Testicular Swelling Musculoskeletal: COMPLAINS OF: Joint pain, Muscle aches, Back pain, DENIES: Stiffness, Joint Swelling, Neck pain Integumentary: DENIES: Abnormal pigmentation, Nail changes, Pruritus, Rash Immunologic/allergic: DENIES: Eczema, Urticaria Neurologic: DENIES: Abnormal gait, Headache, Localized weakness, Paresthesias, Seizures, Speech Problems, Tremor, Poor Balance Psychiatric: DENIES: Anxiety, Confusion, Mood changes, Depression, Hallucinations, Agitation, Suicidal Ideation, Homicidal Ideation, Delusions Past Family Social History Allergies: Coded Allergies: Penicillin (Verified Allergy, Unknown, rash, 07/03/16) Past Medical History Anxiety. Benign prostatic hypertrophy. Past Surgical History Right inguinal hernia repair. Reported Medications reviewed in EMR Active Ordered Medications 1. Finasteride. 2. Citalopram. Family History non contributory Social History Denies any tobacco, alcohol or illicit drug use. He is , lives with his . He has three children; two are in [place] and one in [place] also. Physical Exam Vital Signs Vital Signs Date Time Temp Pulse Resp B/P Pulse Ox O2 Delivery O2 Flow Rate FiO2 07/04/16 12:00 98.3 78 17 169/72 99 07/04/16 08:00 99.1 65 16 138/65 98 07/04/16 04:25 99.0 79 17 132/62 97 07/04/16 00:25 98.7 88 18 130/61 93 07/04/16 00:22 18 07/03/16 20:58 99.0 90 17 145/81 94 07/03/16 20:01 84 16 137/60 94 07/03/16 17:21 108 18 166/73 98 Room Air 07/03/16 15:48 98 20 178/74 98 Room Air 07/03/16 13:39 80 20 156/69 98 Room Air 07/03/16 13:02 20 98 Room Air Physical Exam The patient is alert, awake and oriented to time, place and person. Speech is fluent in Yoruba. Cranial nerve examination demonstrates the pupils to be equal, round, and reactive to light. Extra-ocular movements are intact. Facial motor and sensory function are normal and symmetrical. Gross hearing is decxreased bilaterally. The uvula is midline and elevates symmetrically with the soft palate. Sternocleidomastoid and trapezius muscles have normal and symmetrical strength. Other cranial nerves are intact. Neck is soft and supple. Cervical spine has a decreased range of motion in anterior flexion, extension, lateral bending, and rotation without pain. There is no tenderness to palpation to the spinous processes or paraspinal muscles. Muscle testing reveals normal bulk and tone overall without rigidity, spasticity , fasciculations, or atrophy. Muscle strength is 5/5 in all muscle groups of both upper extremities including deltoid, biceps, triceps, brachioradialis, wrist extension and butter grader. In the lower extremities, strength is 5/5 in both iliopsoas, quadriceps, hamstrings, plantar flexion, dorsiflexion, and extensor hallicus longus. Sensory examination is intact to light touch and sharp/dull discrimination in both the upper and lower extremities, symmetrically. Deep tendon reflexes are 2+ and symmetrical in the biceps, triceps, and brachioradialis, bilaterally, in the upper extremities. In the lower extremities , the patellar and Achilles are 2+, bilaterally. There is a bilateral plantar flexion response. Hoffmanns sign is negative. There is no clonus or other abnormal reflexes noted. Cerebellar examination is intact to [id number] test, rapid rhythmic alternating motion. There is no dysmetria, dysdiadochokinesia, truncal ataxia, or tremor. Laboratory Laboratory Tests Test 07/03/16 07/03/16 07/03/16 07/04/16 15:00 16:00 17:08 06:00 Urine Color YELLOW Urine Turbidity CLEAR Urine pH 6.0 Urine Specific [place] 1.026 Urine Protein NEG Urine Glucose (UA) NEG Urine Ketones TRACE Urine Occult Blood TRACE Urine Nitrite NEG Urine Bilirubin NEG Urine Leukocyte Esterase NEG Urine Squamous Epithelial 0-5 Cells Microscopic Urinalysis Comment CULT NOT INDICATED Erythrocyte Sedimentation Rate 100 Prostate Specific Antigen 1.02 Total Protein 11.6 Albumin 4.37 Albumin/Globulin Ratio 0.61 Azbjd-9-Npfcrjqht 0.29 Zyxve-8-Jhtgqmlqe 0.79 Beta Globulins 0.70 Gamma Globulins 5.45 White Blood Count 4.2 Red Blood Count 2.71 Hemoglobin 9.7 Hematocrit 27.5 Mean Corpuscular Volume 101.4 Mean Corpuscular Hemoglobin 35.6 Mean Corpuscular Hemoglobin 35.1 Concent Red Cell Distribution Width 14.9 Platelet Count 200 Mean Platelet Volume 7.9 Neutrophils (%) (Auto) 60.6 Lymphocytes (%) (Auto) 27.3 Monocytes (%) (Auto) 9.6 Eosinophils (%) (Auto) 2.0 Basophils (%) (Auto) 0.5 Neutrophils # (Auto) 2.5 Lymphocytes # (Auto) 1.1 Monocytes # (Auto) 0.4 Eosinophils # (Auto) 0.1 Basophils # (Auto) 0.0 CBC Comment DIFF FINAL Differential Comment Sodium Level 137 Potassium Level 4.0 Chloride Level 103 Carbon Dioxide Level 29.7 Anion Gap 4 Blood Urea Nitrogen 19 Creatinine 1.37 Estimat Glomerular Filtration 49 Rate Random Glucose 94 Calcium Level 8.8 Immunoglobulin G Total 6070 Immunoglobulin A 33 Immunoglobulin M 19 Result Diagram: 07/04/16 0600 07/04/16 0600 Imaging Last Impressions [facility] 07/04/16 0000 Signed Impressions: Service Date/Time: Monday, July 04, 2016 10:34 - CONCLUSION: 1. Innumerable bone lesions throughout the cervical, thoracic, and lumbar spine. The largest occupies the T6 and T10 vertebral bodies. 2. The prior CT suggested a possible mass extending from T6 into the spinal canal. However, there is no spinal canal mass at this level or spinal canal stenosis. 3. There is moderate spinal canal stenosis at L3-L4 secondary to disc bulge and facet and ligamentum flavum hypertrophy. Shayne Mcintosh MD Chest CT 07/03/16 1536 Signed Impressions: Service Date/Time: Sunday, July 03, 2016 16:23 - CONCLUSION: 1. Please refer to thoracic spine CT report for description of the lytic lesions within the spine. 2. There is respiratory motion artifact but no acute pulmonary abnormality is identified and no pulmonary nodule is seen. 3. Nonacute findings include coronary artery calcification, severe atherosclerotic disease, and bilateral gynecomastia. Shayne Mcintosh MD Abdomen/Pelvis CT 07/03/16 1536 Signed Impressions: Service Date/Time: Sunday, July 03, 2016 16:23 - CONCLUSION: 1. No acute finding is identified in the abdomen or pelvis. Please refer to lumbar spine CT for description of the lumbar spine findings. 2. Nonacute findings include bilateral renal cysts, severe atherosclerotic disease, sigmoid diverticulosis, and prostatomegaly. Shayne Mcintosh MD Chest X-Ray 07/03/16 2463 Signed Impressions: Service Date/Time: Sunday, July 03, 2016 15:25 - CONCLUSION: No acute cardiopulmonary abnormality is identified. Shayne Mcintosh MD Thoracic Spine CT 07/03/16 1228 Signed Impressions: Service Date/Time: Sunday, July 03, 2016 13:10 - CONCLUSION: Undermineralized bones with lytic lesions at multiple levels, as above, with the largest in the T6 vertebral body extending into the right pedicle. The abnormal process has destroyed the posterior cortex of the vertebral body and there is a mass extending into the spinal canal at this level measuring 11 x 6 mm and likely causing severe spinal canal stenosis. Given the appearance and multiplicity of lesions multiple myeloma or metastatic disease are the most likely etiology. Shayne Mcintosh MD Lumbar Spine CT 07/03/16 1228 Signed Impressions: Service Date/Time: Sunday, July 03, 2016 13:10 - CONCLUSION: Multiple lytic lesions involving the lower thoracic spine and lumbar spine characteristic of either metastatic disease or multiple myeloma. No evidence of pathologic fracture. Degenerative disc disease with spondylosis. Jason Torres MD Bone Osseous Survey 07/03/16 0000 Signed Impressions: Service Date/Time: Sunday, July 03, 2016 18:14 - CONCLUSION: The known thoracic and lumbar spine lytic lesions are not well seen radiographically. Please refer to the CT report. There degenerative changes without definite lytic lesion of the cervical spine. There are 6 and 9 mm lesions suspected of the skull. 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 Start neuro checks in a serial fashion. MRI T spine is recommended Respiratory. pulmonary toilette, nasotracheal suction, and breathing treatments with nebulizers. PT and OT evaluation Nutrition. Oral diet Renal. monitor closely urine output, BUN and creatinine Endocrine. Monitor serial Acu checks and SSI for tight control ID monitor for signs of infection Protonix for stress ulcer prophylaxis Terrence hose and SCD's for DVT prophylaxis Addendum. I reviewed his MRI. There is no cord compression. Recommend nonoperative treatment with external beam radiation therapy. If not diagnosis is known, he could have a needle biosy of T6 Steve Chin MD Jul 04, 2016 13:06
--- NOTE | 2016-07-04 13:31 | PD.ONC.PN ---
Subjective Subjective Remarks Afebrile overnight. Patient complaining of headache and back pain. He is requesting some tylenol. Objective Data Date Time Temp Pulse Resp B/P Pulse Ox O2 Delivery O2 Flow Rate FiO2 07/04/16 12:00 98.3 78 17 169/72 99 07/04/16 08:00 99.1 65 16 138/65 98 07/04/16 04:25 99.0 79 17 132/62 97 07/04/16 00:25 98.7 88 18 130/61 93 07/04/16 00:22 18 07/03/16 20:58 99.0 90 17 145/81 94 07/03/16 20:01 84 16 137/60 94 07/03/16 17:21 108 18 166/73 98 Room Air 07/03/16 15:48 98 20 178/74 98 Room Air 07/03/16 13:39 80 20 156/69 98 Room Air 07/04/16 07/04/16 07/04/16 07:00 15:00 23:00 Intake Total 280 ml Output Total 600 ml Balance -320 ml Result Diagram: 07/04/16 0600 07/04/16 0600 Laboratory Results Laboratory Tests Test 07/03/16 07/03/16 07/03/16 07/04/16 15:00 16:00 17:08 06:00 Urine Color YELLOW Urine Turbidity CLEAR Urine pH 6.0 Urine Specific [place] 1.026 Urine Protein NEG mg/dL Urine Glucose (UA) NEG mg/dL Urine Ketones TRACE mg/dL Urine Occult Blood TRACE Urine Nitrite NEG Urine Bilirubin NEG Urine Leukocyte Esterase NEG Urine Squamous Epithelial 0-5 /hpf Cells Microscopic Urinalysis Comment CULT NOT INDICATED Erythrocyte Sedimentation Rate 100 mm/hr Prostate Specific Antigen 1.02 NG/ML Total Protein 11.6 GM/DL Albumin 4.37 GM/DL Albumin/Globulin Ratio 0.61 Vtlne-0-Uckdimrxk 0.29 GM/DL Kzazu-1-Yuqanbfyq 0.79 GM/DL Beta Globulins 0.70 GM/DL Gamma Globulins 5.45 GM/DL White Blood Count 4.2 TH/MM3 Red Blood Count 2.71 MIL/MM3 Hemoglobin 9.7 GM/DL Hematocrit 27.5 % Mean Corpuscular Volume 101.4 FL Mean Corpuscular Hemoglobin 35.6 PG Mean Corpuscular Hemoglobin 35.1 % Concent Red Cell Distribution Width 14.9 % Platelet Count 200 TH/MM3 Mean Platelet Volume 7.9 FL Neutrophils (%) (Auto) 60.6 % Lymphocytes (%) (Auto) 27.3 % Monocytes (%) (Auto) 9.6 % Eosinophils (%) (Auto) 2.0 % Basophils (%) (Auto) 0.5 % Neutrophils # (Auto) 2.5 TH/MM3 Lymphocytes # (Auto) 1.1 TH/MM3 Monocytes # (Auto) 0.4 TH/MM3 Eosinophils # (Auto) 0.1 TH/MM3 Basophils # (Auto) 0.0 TH/MM3 CBC Comment DIFF FINAL Differential Comment Sodium Level 137 MEQ/L Potassium Level 4.0 MEQ/L Chloride Level 103 MEQ/L Carbon Dioxide Level 29.7 MEQ/L Anion Gap 4 MEQ/L Blood Urea Nitrogen 19 MG/DL Creatinine 1.37 MG/DL Estimat Glomerular Filtration 49 ML/MIN Rate Random Glucose 94 MG/DL Calcium Level 8.8 MG/DL Immunoglobulin G Total 6070 MG/DL Immunoglobulin A 33 MG/DL Immunoglobulin M 19 MG/DL Imaging Studies Last 24 hours Impressions [facility] 07/04/16 0000 Signed Impressions: Service Date/Time: Monday, July 04, 2016 10:34 - CONCLUSION: 1. Innumerable bone lesions throughout the cervical, thoracic, and lumbar spine. The largest occupies the T6 and T10 vertebral bodies. 2. The prior CT suggested a possible mass extending from T6 into the spinal canal. However, there is no spinal canal mass at this level or spinal canal stenosis. 3. There is moderate spinal canal stenosis at L3-L4 secondary to disc bulge and facet and ligamentum flavum hypertrophy. Shayne Mcintosh MD Chest CT 07/03/16 1536 Signed Impressions: Service Date/Time: Sunday, July 03, 2016 16:23 - CONCLUSION: 1. Please refer to thoracic spine CT report for description of the lytic lesions within the spine. 2. There is respiratory motion artifact but no acute pulmonary abnormality is identified and no pulmonary nodule is seen. 3. Nonacute findings include coronary artery calcification, severe atherosclerotic disease, and bilateral gynecomastia. Shayne Mcintosh MD Abdomen/Pelvis CT 07/03/16 1536 Signed Impressions: Service Date/Time: Sunday, July 03, 2016 16:23 - CONCLUSION: 1. No acute finding is identified in the abdomen or pelvis. Please refer to lumbar spine CT for description of the lumbar spine findings. 2. Nonacute findings include bilateral renal cysts, severe atherosclerotic disease, sigmoid diverticulosis, and prostatomegaly. Shayne Mcintosh MD Chest X-Ray 07/03/16 1508 Signed Impressions: Service Date/Time: Sunday, July 03, 2016 15:25 - CONCLUSION: No acute cardiopulmonary abnormality is identified. Shayne Mcintosh MD Administered Medications Medications (Trade) Dose Ordered Sig/Clement Route PRN Reason Start Time Stop Time Status Last Admin Dose Admin IV Flush (NS Flush) 2 ml BID FLUSH 07/03/16 21:00 07/04/16 08:32 Docusate Sodium (Colace) 100 mg Q12H PO 07/03/16 17:00 07/04/16 04:32 Heparin Sodium (Porcine) (Heparin Inj) 5,000 units Q12H SQ 07/03/16 16:00 07/04/16 04:31 Morphine Sulfate (Morphine Inj) 2 mg Q3H PRN IV PUSH PAIN SCALE 4 TO 10 07/03/16 18:15 07/04/16 11:39 Objective Remarks GENERAL: Pleasant middle aged male, sitting up in bed in [facility]. SKIN: Warm and dry. HEAD: Normocephalic. EYES: No injection or drainage. NECK: Supple, trachea midline. CARDIOVASCULAR: Regular rate and rhythm RESPIRATORY: Breath sounds equal bilaterally. No accessory muscle use. GASTROINTESTINAL: Abdomen soft, non-tender, nondistended. EXTREMITIES: No cyanosis NEUROLOGICAL: awake and alert, normal speech. Assessment/Plan Problem List: (1) Bone metastasis Status: Acute Plan: --11x6mm mass extending into the spinal canal at T6. +multiplicity of lytic lesions concerning for multiple myeloma versus metastatic cancer. --SPEP pending --bone marrow biopsy pending. --PSA WNL --B12 WNL --IGG elevated @ 6K --fs faxed to npr Assessment 89y/o male with lytic bone lesions suspicious for metastatic malignant melanoma h/o anxiety and benign prostatic hypertrophy. Plan 1. await bone marrow biopsy 2. continue pain management 3. monitor CBC, bmp Attending Statement Agree with above. Follow up in clinic biopsy results and recommendation for treatment. Zaida Menjivar Jul 04, 2016 13:30 Charisse Razo MD Jul 04, 2016 17:35
[2016-07-04] MEDS ORDERED: ACETAMINOPHEN 325 MG TAB PO ONE (13:45)
[2016-07-04] MEDS ORDERED: SODIUM BICARBONATE 8.4% INJ 50 ML ONE (14:46)
[2016-07-04] MEDS ORDERED: LIDOCAINE 1%/EPINEPHrine 1:100,000 SOLN 20 ML VIAL ONE (14:46)
[2016-07-04] MEDS ORDERED: MIDAZOLAM HCL 5 MG/5 ML VIAL ONE (15:25)
[2016-07-04] MEDS ORDERED: fentaNYL CITRATE 250 MCG/5 ML AMP ONE (15:25)
[2016-07-04 16:28] LABS: BONE MARROW PROCESSING COMPLETE; IRON STAIN DONE; JENNER GIEMSA STAIN DONE
--- NOTE | 2016-07-04 16:52 | RADRPT ---
EXAM DATE/TIME: 07/04/2016 15:36 [place] COMPARISON: No previous studies available for comparison. INDICATIONS : Multiple myeloma. SEDATION TIME: 30 minutes BIOPSY SITE: Left iliac MEDICATION(S): 1.) 1 mg midazolam (Versed) IV 2.) 50 mcg fentanyl (Sublimaze) IV DEVICE(S): 1.) 11 gauge Bone marrow biopsy needle MEDICAL HISTORY : None. SURGICAL HISTORY : Umbilical hernia repair. ENCOUNTER: Initial ACUITY: 1 day PAIN SCORE: 0/10 LOCATION: pelvis A total of one core specimen(s) were obtained and sent to the laboratory for pathologic evaluation. PROCEDURE: 1. CT guided bone marrow biopsy. 2. Conscious sedation with continuous EKG and oximetry monitoring. Prior to the procedure informed consent was obtained. Any appropriate prior imaging studies were rev iewed. Using automated exposure control and adjustment of the mA and/or kV according to patient size , radiation dose was kept as low as reasonably achievable to obtain optimal diagnostic quality images . The site was prepped in a sterile fashion. Full sterile technique was used, including cap, mask, ruddy rile gloves and gown and a large sterile sheet. Hand hygiene and 2% chlorhexidine and/or betadine/al cohol prep was utilized per protocol for cutaneous antisepsis. The skin and subcutaneous tissues wer e infiltrated with local anesthetic solution. With CT guidance the previously identified target was localized. Biopsy was performed using the presc ribed needle as above. Following biopsy marrow aspiration was performed with repeat puncture. Adequa te hemostasis was obtained with compression at the puncture site. Conscious sedation was performed with the prescribed dosages and duration as above in the presence of an independent trained radiology nurse to assist in the monitoring of the patient. EKG and oximetry remained stable throughout the procedure. The patient tolerated the procedure well and there were no complications. The patient was sent to Radiology Outpatient Unit in stable condition. CONCLUSION: 1. Uncomplicated CT guided bone marrow aspirate. 2. Uncomplicated CT guided bone marrow biopsy. Shayne Mcintosh MD on July 04, 2016 at 16:50 Board Certified Radiologist. This report was verified electronically.
[2016-07-04] MEDS: SODIUM CHLOR 0.9% 1000 ML INJ 1,000 ML IV SCH (22:09)
[2016-07-05] VITALS: BP 140/58; PULSE 60; RESP 18; TEMP 98.2; O2SAT 96
[2016-07-05] MEDS: HEPARIN SODIUM - SQ 10,000 UNITS/ML VIAL SQ SCH ×2 (04:00→16:32)
[2016-07-05] MEDS: MORPHINE SULFATE 4 MG/ML INJ IV PUSH PRN ×4 (04:41→17:21)
[2016-07-05] MEDS: DOCUSATE SODIUM 100 MG CAP PO SCH ×2 (04:47→16:31)
[2016-07-05 06:18] LABS: HEMATOCRIT 26.2 % (39.0-51.0); MEAN CELL VOLUME 102.4 FL (80.0-100.0); MEAN CORPUSCULAR HGB CONC 35.1 % (32.0-36.0); PLATELET COUNT 193 TH/MM3 (150-450); RED BLOOD COUNT 2.56 MIL/MM3 (4.50-5.90); RED CELL DISTRIBUTION WIDTH 14.9 % (11.6-17.2); REVIEW FLAG FINAL; WHITE BLOOD COUNT 4.2 TH/MM3 (4.0-11.0)
[2016-07-05 06:35] LABS: BICARBONATE 31.5 MEQ/L (21.0-32.0)
[2016-07-05 08:00] VITALS: BP 157/69; PULSE 81; RESP 15; TEMP 96.9; O2SAT 92
[2016-07-05] MEDS: SODIUM CHLORIDE 0.9% FLUSH 5 ML FLUSH FLUSH SCH ×2 (09:00→23:03)
[2016-07-05 12:15] VITALS: BP 146/65; PULSE 79; RESP 15; TEMP 96.7; O2SAT 97
[2016-07-05] MEDS ORDERED: MORPHINE SULFATE 4 MG/ML INJ IV PUSH PRN (14:30)
--- NOTE | 2016-07-05 14:38 | HHI.PR ---
Subjective Remarks c/o mid back pain, more today morphine not working no cp no sob has been walking to bathroom no fever voiding okay Objective Objective Results - Vital Signs Date Time Temp Pulse Resp B/P Pulse Ox O2 Delivery O2 Flow Rate FiO2 07/05/16 12:15 96.7 79 15 146/65 97 07/05/16 08:00 96.9 81 15 157/69 92 07/05/16 00:00 98.2 60 18 140/58 96 07/04/16 20:00 98.7 60 18 131/56 93 07/04/16 17:14 55 16 130/54 95 07/04/16 16:45 61 16 115/55 97 07/04/16 16:30 56 16 125/54 94 07/04/16 16:15 98.5 57 16 124/55 92 I/O 07/04/16 07/04/16 07/04/16 07/05/16 07/05/16 07/05/16 07:00 15:00 23:00 07:00 15:00 23:00 Intake Total 280 ml 0 ml 240 ml 120 ml Output Total 600 ml 400 ml Balance -320 ml -400 ml 240 ml 120 ml Intake Oral 280 ml 0 ml 240 ml 120 ml IV Total 0 ml Output Urine Total 600 ml 400 ml # Voids 1 2 1 # Bowel Movements 0 Result Diagram: 07/05/16 0555 07/05/16 0555 Imaging Last Impressions Bone Biopsy CT 07/04/16 1007 Signed Impressions: Service Date/Time: Monday, July 04, 2016 15:36 - CONCLUSION: 1. Uncomplicated CT guided bone marrow aspirate. 2. Uncomplicated CT guided bone marrow biopsy. Shayne Mcintosh MD Entire Spine MRI 07/04/16 0000 Signed Impressions: Service Date/Time: Monday, July 04, 2016 10:34 - CONCLUSION: 1. Innumerable bone lesions throughout the cervical, thoracic, and lumbar spine. The largest occupies the T6 and T10 vertebral bodies. 2. The prior CT suggested a possible mass extending from T6 into the spinal canal. However, there is no spinal canal mass at this level or spinal canal stenosis. 3. There is moderate spinal canal stenosis at L3-L4 secondary to disc bulge and facet and ligamentum flavum hypertrophy. Shayne Mcintosh MD Chest CT 07/03/16 1536 Signed Impressions: Service Date/Time: Sunday, July 03, 2016 16:23 - CONCLUSION: 1. Please refer to thoracic spine CT report for description of the lytic lesions within the spine. 2. There is respiratory motion artifact but no acute pulmonary abnormality is identified and no pulmonary nodule is seen. 3. Nonacute findings include coronary artery calcification, severe atherosclerotic disease, and bilateral gynecomastia. Shayne Mcintosh MD Abdomen/Pelvis CT 07/03/16 1536 Signed Impressions: Service Date/Time: Sunday, July 03, 2016 16:23 - CONCLUSION: 1. No acute finding is identified in the abdomen or pelvis. Please refer to lumbar spine CT for description of the lumbar spine findings. 2. Nonacute findings include bilateral renal cysts, severe atherosclerotic disease, sigmoid diverticulosis, and prostatomegaly. Shayne Mcintosh MD Chest X-Ray 07/03/16 1508 Signed Impressions: Service Date/Time: Sunday, July 03, 2016 15:25 - CONCLUSION: No acute cardiopulmonary abnormality is identified. Shayne Mcintosh MD Thoracic Spine CT 07/03/16 1228 Signed Impressions: Service Date/Time: Sunday, July 03, 2016 13:10 - CONCLUSION: Undermineralized bones with lytic lesions at multiple levels, as above, with the largest in the T6 vertebral body extending into the right pedicle. The abnormal process has destroyed the posterior cortex of the vertebral body and there is a mass extending into the spinal canal at this level measuring 11 x 6 mm and likely causing severe spinal canal stenosis. Given the appearance and multiplicity of lesions multiple myeloma or metastatic disease are the most likely etiology. Shayne Mcintosh MD Lumbar Spine CT 07/03/16 1228 Signed Impressions: Service Date/Time: Sunday, July 03, 2016 13:10 - CONCLUSION: Multiple lytic lesions involving the lower thoracic spine and lumbar spine characteristic of either metastatic disease or multiple myeloma. No evidence of pathologic fracture. Degenerative disc disease with spondylosis. Jason Torres MD Bone Osseous Survey 07/03/16 0000 Signed Impressions: Service Date/Time: Sunday, July 03, 2016 18:14 - CONCLUSION: The known thoracic and lumbar spine lytic lesions are not well seen radiographically. Please refer to the CT report. There degenerative changes without definite lytic lesion of the cervical spine. There are 6 and 9 mm lesions suspected of the skull. Shayne Singh MD Other Results Laboratory Tests Test 07/05/16 05:55 White Blood Count 4.2 Red Blood Count 2.56 Hemoglobin 9.2 Hematocrit 26.2 Mean Corpuscular Volume 102.4 Mean Corpuscular Hemoglobin 36.0 Mean Corpuscular Hemoglobin 35.1 Concent Red Cell Distribution Width 14.9 Platelet Count 193 Mean Platelet Volume 7.7 Sodium Level 137 Potassium Level 4.0 Chloride Level 102 Carbon Dioxide Level 31.5 Anion Gap 4 Blood Urea Nitrogen 29 Creatinine 1.43 Estimat Glomerular Filtration 47 Rate Random Glucose 95 Calcium Level 8.5 ROS General: Weakness, No: Fatigue, Other HEENT: No: Sore Throat, Dysphagia Cardiac: No: Chest Pain, Edema, Palpitations Pulmonary: No: Cough, SOB, Wheezing GI: No: Abdominal Pain, BM, Diarrhea, 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 SKIN: No rashes, ecchymoses or lesions. Cool and dry. HEAD: Atraumatic. Normocephalic. No temporal or scalp tenderness. EYES: Pupils equal round and reactive. Extraocular motions intact. No scleral icterus. No injection or drainage. ENT: Nose without bleeding, purulent drainage or septal hematoma. Throat without erythema, tonsillar hypertrophy or exudate. Uvula midline. Airway patent. NECK: Trachea midline. No JVD or lymphadenopathy. Supple, nontender, no meningeal signs. CARDIOVASCULAR: Regular rate and rhythm without murmurs, gallops, or rubs. RESPIRATORY: Clear to auscultation. Breath sounds equal bilaterally. No wheezes , rales, or rhonchi. GASTROINTESTINAL: Abdomen soft, non-tender, nondistended. No hepato-splenomegaly , or palpable masses. No guarding. MUSCULOSKELETAL: No joint abnormality. Complains of tenderness on palpation to the upper thoracic area, right and left. No obvious deformity noted. Negative straight leg rising. NEUROLOGICAL: Awake and alert. Cranial nerves II through XII intact. Motor and sensory grossly within normal limits. Five out of 5 muscle strength in all muscle groups. Normal speech. Urinary Catheter: No Vascular Central Line Catheter: No A/P Diagnosis: (1) Intractable pain (2) Bone metastasis (3) Anemia (4) Renal insufficiency (5) Spinal stenosis Assessment and Plan 89-year-old elderly male presented to the emergency room with intractable low back pain, found with multiple light pink lesion along the spine, largest in the T6 vertebral body as well as a mass extending into the spinal canal likely causing severe spinal canal stenosis area possible multiple myeloma versus metastatic disease. Patient status post bone marrow biopsy -Dr. Razo has been consulted, her input is appreciated Neurosurgery input appreciated, reviewed MRI. There is no cord compression. Recommend nonoperative treatment with external beam radiation therapy. If not diagnosis is known, he could have a needle biosy of T6 -Rad oncology consulted, pending -Continue with pain management-add Fentanyl patch and inc. Morphine -Follow up on results of bone marrow biopsy Anemia, this is a new finding. Denies any blood in his stool. -Further workup per oncology Follow CBC Renal insufficiency, this is a new finding Continue cautious hydration Follow BMP History of enlarged prostate Continue with finasteride 5 mg by mouth daily For DVT prophylaxis, SCDs/heparin PT eval, ok to ambulate bowel regimen D/W RN D/W Dr. Acosta D/W pt. This patient was seen by myself and Dr. Acosta, this note is written on his behalf Problem Qualifiers (1) Anemia: Qualified Code: D64.9 - Anemia, unspecified type (2) Spinal stenosis: Qualified Code: M48.05 - Spinal stenosis of thoracolumbar region Delilah Singh Jul 05, 2016 14:38
--- NOTE | 2016-07-05 14:59 | PD.ONC.PN ---
Subjective Subjective Remarks Afebrile overnight. Pt sitting up in chair at bedside. He states that he is having midback pain. No other complaints. Objective Data Date Time Temp Pulse Resp B/P Pulse Ox O2 Delivery O2 Flow Rate FiO2 07/05/16 12:15 96.7 79 15 146/65 97 07/05/16 08:00 96.9 81 15 157/69 92 07/05/16 00:00 98.2 60 18 140/58 96 07/04/16 20:00 98.7 60 18 131/56 93 07/04/16 17:14 55 16 130/54 95 07/04/16 16:45 61 16 115/55 97 07/04/16 16:30 56 16 125/54 94 07/04/16 16:15 98.5 57 16 124/55 92 Result Diagram: 07/05/16 0555 07/05/16 0555 Laboratory Results Laboratory Tests Test 07/05/16 05:55 White Blood Count 4.2 TH/MM3 Red Blood Count 2.56 MIL/MM3 Hemoglobin 9.2 GM/DL Hematocrit 26.2 % Mean Corpuscular Volume 102.4 FL Mean Corpuscular Hemoglobin 36.0 PG Mean Corpuscular Hemoglobin 35.1 % Concent Red Cell Distribution Width 14.9 % Platelet Count 193 TH/MM3 Mean Platelet Volume 7.7 FL Sodium Level 137 MEQ/L Potassium Level 4.0 MEQ/L Chloride Level 102 MEQ/L Carbon Dioxide Level 31.5 MEQ/L Anion Gap 4 MEQ/L Blood Urea Nitrogen 29 MG/DL Creatinine 1.43 MG/DL Estimat Glomerular Filtration 47 ML/MIN Rate Random Glucose 95 MG/DL Calcium Level 8.5 MG/DL Administered Medications Medications (Trade) Dose Ordered Sig/Clement Route PRN Reason Start Time Stop Time Status Last Admin Dose Admin IV Flush (NS Flush) 2 ml BID FLUSH 07/03/16 21:00 07/04/16 22:08 Docusate Sodium (Colace) 100 mg Q12H PO 07/03/16 17:00 07/05/16 04:47 Heparin Sodium (Porcine) 5000 units 5,000 units Q12H SQ 07/03/16 16:00 07/05/16 04:00 Sodium Chloride (NS 1000 ml Inj) 1,000 ml @ 42 mls/hr [id number] IV 07/04/16 19:15 3/7/17 22:09 Objective Remarks GENERAL: Appears younger than stated age. Sitting up in no distress. Occasional grimacing. SKIN: Warm and dry. HEAD: Normocephalic. EYES: No scleral icterus. No injection or drainage. NECK: Supple, trachea midline. No JVD or lymphadenopathy. CARDIOVASCULAR: Regular rate and rhythm without murmurs. RESPIRATORY: Breath sounds equal bilaterally. No accessory muscle use. GASTROINTESTINAL: Abdomen soft, non-tender, nondistended. EXTREMITIES: No cyanosis, or edema. NEUROLOGICAL: No obvious focal deficit. Awake and alert. Normal speech. Assessment/Plan Problem List: (1) Bone metastasis Status: Acute Plan: --11x6mm mass extending into the spinal canal at T6. +multiplicity of lytic lesions concerning for multiple myeloma versus metastatic cancer. --SPEP pending --bone marrow biopsy pending. --PSA WNL --B12 WNL --IGG elevated @ 6K --fs faxed to npr Assessment 89y/o male with lytic bone lesions suspicious for metastatic malignant melanoma h/o anxiety and benign prostatic hypertrophy. Plan 1. Pt having increased pain. Primary team has increased morphine dose and also added Fentanyl 25mcg/hr patch. 2. Await BMB, SPEP results. 3. Monitor labs. Attending Statement The exam, history, and the medical decision-making described in the above note were completed with the assistance of the mid-level provider. I reviewed and agree with the findings presented. I attest that I had a [id number] encounter with the patient on the same day, and personally performed and documented my assessment and findings in the medical record. Bone marrow biopsy pending results. SPEP still pending, suspect multiple myeloma, need to completes staging. Pt will need CT/PET as out pt. Plan for triple combination chemotherapy with RVD. Anticipate starting Dexamethasone pending diagnosis confirmed. Adjunctive therapy with bisphosphonates also planned. Lorin Lion Jul 05, 2016 14:59 Charisse Razo MD Jul 05, 2016 20:09
[2016-07-05] MEDS ORDERED: methylPREDNISolone SOD SUCC 125 MG/2 ML VIAL IV PUSH ONE (15:00)
[2016-07-05] MEDS ORDERED: fentaNYL 25 MCG/HR PATCH TD SCH (15:00)
[2016-07-05 16:00] VITALS: BP 162/70; PULSE 70; RESP 18; TEMP 95.4; O2SAT 98
--- NOTE | 2016-07-05 17:35 | HHI.NSPN ---
(Lauren Spencer) Note Status Status: Progress Note (Lauren Spencer) Interval History Interval History This is an 89-year-old man with history of anxiety and benign prostatic hypertrophy. He denies any previous cancer. Mr. Davey came to the ER with chest pain. He has noted pain that became progressively worse radiating from the back. His pain was described as 10/10. CT scan done at [place] [facility] showed under-mineralized bones with lytic lesions of multiple levels, the largest in the T6 vertebral body, extends into the right pedicle. Apparently he was found to have a hemoglobin of 9.9 and a decreased renal function to 44%. CT scan of the chest showed no pulmonary nodules. He denies any fevers, chills or night sweats. He has not been sick before. His pain has gotten progressively worse. He denies any headaches or vision changes. A neurosurgical consultation was requested 07/05: MRI spine shows multiple bony lesions throughout the cervical, thoracic and lumbar spine without evidence of retropulsion or neural compromise on MRI. Patient reports he feels a little bit better today. (Lauren Spencer) Labs, Micro, & Vital Signs Results Date Time Temp Pulse Resp B/P Pulse Ox O2 Delivery O2 Flow Rate FiO2 07/05/16 16:00 95.4 70 18 162/70 98 07/05/16 12:15 96.7 79 15 146/65 97 07/05/16 08:00 96.9 81 15 157/69 92 07/05/16 00:00 98.2 60 18 140/58 96 07/04/16 20:00 98.7 60 18 131/56 93 07/05/16 07:00 Intake Total 360 ml Output Total 400 ml Balance -40 ml Constitutional Vital Signs Date Time Temp Pulse Resp B/P Pulse Ox O2 Delivery O2 Flow Rate FiO2 07/05/16 16:00 95.4 70 18 162/70 98 07/05/16 12:15 96.7 79 15 146/65 97 07/05/16 08:00 96.9 81 15 157/69 92 07/05/16 00:00 98.2 60 18 140/58 96 07/04/16 20:00 98.7 60 18 131/56 93 07/05/16 07:00 Intake Total 360 ml Output Total 400 ml Balance -40 ml (Lauren Spencer) Review of Systems/Exam Exam Mr. Quintanilla is alert, awake and oriented to time, place and person. Follows commands. Sitting up in chair eating dinner. Cranial nerve examination: pupils to be equal, round, and reactive to light. Extra-ocular movements are intact. Facial motor normal and symmetrical. The uvula is midline and elevates symmetrically with the soft palate. Muscle strength is 5/5 in all muscle groups of both upper extremities including deltoid, biceps, triceps and director post. In the lower extremities, strength is 5/5 in both iliopsoas, quadriceps, hamstrings, plantar flexion, dorsiflexion, and extensor hallicus longus. Sensory examination is intact to light touch in both the upper and lower extremities, symmetrically. Deep tendon reflexes are 2+ in the biceps, triceps, and brachioradialis, bilaterally, in the upper extremities. In the lower extremities, the patellar and Achilles are 2+, bilaterally. There is a bilateral plantar flexion response. Hoffmanns sign is negative. There is no clonus Cerebellar examination is intact to [id number] test (Lauren Spencer) Medications Current Medications Current Medications Medications (Trade) Dose Ordered Sig/Clement Route PRN Reason Start Time Stop Time Status Last Admin Dose Admin IV Flush (NS Flush) 2 ml UNSCH PRN FLUSH FLUSH AFTER USING IV ACCESS 07/03/16 15:45 IV Flush (NS Flush) 2 ml BID FLUSH 07/03/16 21:00 07/04/16 22:08 Acetaminophen (Tylenol) 650 mg Q4H PRN PO TEMP > 100.4 07/03/16 15:45 Docusate Sodium (Colace) 100 mg Q12H PO 07/03/16 17:00 07/05/16 16:31 Magnesium Hydroxide (Milk Of Magnesia Liq) 30 ml Q12H PRN PO CONSTIPATION 07/03/16 15:45 Sennosides (Senokot) 17.2 mg Q12H PRN PO CONSTIPATION 07/03/16 15:45 Heparin Sodium (Porcine) (Heparin Inj) 5,000 units Q12H SQ 07/03/16 16:00 07/05/16 16:32 Naloxone HCl 0.4 mg 0.4 mg UNSCH PRN IV SEE LABEL COMMENTS 07/03/16 15:45 Sodium Chloride (NS 1000 ml Inj) 1,000 ml @ 42 mls/hr [id number] IV 07/04/16 19:15 07/04/16 22:09 Morphine Sulfate (Morphine Inj) 4 mg Q2H PRN IV PUSH PAIN SCALE 6 TO 10 07/05/16 16:15 07/05/16 17:21 Fentanyl (Duragesic 25 Mcg Patch.72 Hr) 1 patch Q3D TD 07/05/16 15:00 07/05/16 16:30 Miscellaneous Information 1 Q3D T-DERMAL 07/08/16 15:00 Morphine Sulfate (Morphine Inj) 2 mg Q2H PRN IV PUSH PAIN SCALE 2 TO 5 07/05/16 14:30 (Lauren Spencer) Medical Decision Making MDM Remarks 89 y/o male with multiple bony spine lesion, suspected metastatic malignant melanoma per oncology (Lauren Spencer) Plan Plan Remarks discussed with patient MRI spine findings, and nonsurgical management cont oncology management rad-oncology evaluation (Lauren Spencer) Attending Statement The exam, history, and the medical decision-making described in the above note were completed with the assistance of the mid-level provider. I reviewed and agree with the findings presented. I attest that I had a [id number] encounter with the patient on the same day, and personally performed and documented my assessment and findings in the medical record. (Steve Chin MD) Lauren Spencer Jul 05, 2016 17:34 Steve Chin MD Jul 07, 2016 15:41
[2016-07-05 20:00] VITALS: BP 151/64; PULSE 80; RESP 20; TEMP 96.6; O2SAT 96
[2016-07-05] MEDS: SODIUM CHLOR 0.9% 1000 ML INJ 1,000 ML IV SCH (23:02)
[2016-07-06] VITALS: BP 144/72; PULSE 76; RESP 18; TEMP 94.4; O2SAT 95
[2016-07-06] MEDS: DOCUSATE SODIUM 100 MG CAP PO SCH ×3 (04:57→17:31)
[2016-07-06] MEDS: HEPARIN SODIUM - SQ 10,000 UNITS/ML VIAL SQ SCH ×2 (04:57→15:29)
[2016-07-06] MEDS: MORPHINE SULFATE 4 MG/ML INJ IV PUSH PRN ×4 (05:04→23:39)
[2016-07-06] MEDS: SODIUM CHLORIDE 0.9% FLUSH 5 ML FLUSH FLUSH SCH ×2 (07:49→21:03)
[2016-07-06 09:07] VITALS: BP 155/76; PULSE 76; RESP 20; TEMP 96.7; O2SAT 93
--- NOTE | 2016-07-06 11:05 | MB ---
cc: MAYELA CORTES M.D., DIEGO T. M.D. ALVAREZ-FARINETTI, ALVARO DEVERAS, RUBY ANNE E. M.D. DATE OF CONSULTATION: 07/04/2016 DATE OF : [address] Yemi Chin. DIAGNOSIS Metastatic disease vs multiple myeloma, unknown primary at the present time. Stage: Most likely stage IV. CHIEF COMPLAINT Mid back pain irradiating to the ribs. REASON FOR VISIT The patient is being evaluated for possible palliative radiotherapy treatment options. HISTORY OF PRESENT ILLNESS This is an 89-year-old male which says that he was in good health with no issues or problems until about a week ago when he started having pain in his left chest wall lateral ribs. By reading reports, the patient states that he was having mid back pain, but when I ask him today he says that most of his pain was located in the ribs on the lateral area. The patient denied any issues with movement of the arms and legs and no neurological deficits. As a result of increase in pain the patient came into the ER for evaluation and now has had imaging studies including CTs and MRIs which have shown several lytic lesions, especially at the level of T6 to T10 without any spinal canal invasion or cord compression or impending cord compression. Dr. Chin has requested for me to see the patient in consultation for possible palliative radiotherapy treatment options. The patient has a pending bone marrow biopsy that has been performed. PAST MEDICAL HISTORY Past medical history as above. Also history of: 1. Anxiety. 2. BPH. 3. History of right inguinal hernia repair. MEDICATIONS Medications include: 1. Finasteride. 2. Citalopram. ALLERGIES PENICILLIN. FAMILY HISTORY The patient says that his sister had metastatic breast carcinoma and from this. Also had one brother who had metastatic colon carcinoma and from this. SOCIAL HISTORY The patient denies any smoking history and no major ETOH intake. REVIEW OF SYSTEMS CONSTITUTIONAL: Unremarkable. The patient denies any decrease in appetite and no major fatigue or major loss of weight recently. ALLERGIES Has not had allergic reaction recently. EYES: Unremarkable. ENT: Unremarkable. Denies any pain with swallowing. NECK: Unremarkable. INTEGUMENTARY: Unremarkable. BREASTS: Unremarkable. CARDIOVASCULAR: Unremarkable. RESPIRATORY: Unremarkable. GASTROINTESTINAL: Unremarkable. GENITOURINARY: Unremarkable. MUSCULOSKELETAL: Pain on the left lateral chest wall. NEUROLOGIC: Unremarkable. Denies any motor function deficits. No loss of bowel and bladder control. PSYCHIATRIC: Unremarkable. ENDOCRINE: Unremarkable. HEMATOLOGIC: Unremarkable. DERMATOLOGIC: Unremarkable. PHYSICAL EXAMINATION GENERAL: The patient is oriented x3, in no major distress. CHEST: Has some pain on the left lateral chest wall to movement which at this point is under better control. LUNGS: To auscultation bilateral lungs were clear to auscultation with appropriate ventilatory respiratory effort. HEART: Heart was regular in rate and rhythm with no murmurs. NECK: Palpation of the neck and bilateral supraclavicular areas are free. ABDOMEN: Palpation of abdominal cavity reveals no hepatosplenomegaly. No pain elicited. No periumbilical masses are noted. EXTREMITIES: Lower extremities with no edema. NEUROLOGIC: To neurologic examination, no neurological deficits were detected. Cognitive functions are preserved. There is pain on the left lateral chest wall to range of motion. RADIOLOGY Bone osseous survey 07/03/2016. Impression. Known thoracic and lumbar spine lytic lesions are not well seen radiographically. They are 6 and 9 mm lesions suspected on the skull. Thoracic T spine 07/03/2016. Impression. Under mineralized bones with lytic lesions of multiple levels. Largest at T6 vertebral body extending to the right pedicle. The abnormal process has destroyed the posterior cortex of the vertebral body and there is a mass extending to spinal canal at this level measuring 11 x 6 mm and likely causing severe spinal canal stenosis. Given the appearance and multiplicity of the lesions, multiple myeloma or metastatic disease are the most likely etiology. Lumbar CT 07/03/2016. Impression. Multiple lytic lesions involving the lower thoracic spine and lumbar spine characteristic of metastatic disease or multiple myeloma. No evidence of pathological fracture, degenerative disk disease with spondylosis. CT of the chest 07/03/2016. Impression. There is respiratory motion artifact but no acute pulmonary abnormality is identified. No pulmonary nodule is seen. Nonacute findings include coronary artery calcification, severe atherosclerotic disease and bilateral gynecomastia. CT of the abdomen and pelvis 07/03/2016. Impression. No acute findings identified in the abdomen and pelvis. Nonacute findings include bilateral renal cyst, severe atherosclerotic disease, sigmoid diverticulosis. MRI entire spine 07/04/2016. Impression. Innumerable bone lesions involving the cervical, thoracic and lumbar spine. The largest occupies the T6 and T10 vertebral bodies. The prior CT suggested a possible mass extending from T6 into the spinal canal, however, there is no spinal canal mass at this level or spinal canal stenosis. There is moderate spinal canal stenosis at L3-L4 secondary to disk bulge and facet and ligamentum flavum hypertrophy. PATHOLOGY Bone marrow biopsy pending. 07/14/2016. ASSESSMENT A 89-year-old male with diagnosis of probable multiple myeloma versus metastatic disease. The patient being evaluated for palliative radiotherapy treatment options. PLAN I had an extensive discussion with the patient in regards to his findings of the MRI. I have reviewed Dr. Razo' note as well as Dr. Chin' note from 07/04/2016. I agree with his recommendations of palliative radiotherapy. At this point there is many lesions in the spine. I have reviewed his MRIs, I will recommend radiation therapy to the T6 and T10 vertebral bodies which are the largest lesions, which can cause pathological fracture, increased pain down the road as well as neurological compromise if the disease continues to progress. The patient advised of this recommendation. I advised him that I obviously will wait until the pathology is reported and go from there. Since this is not an emergent case, I will see the patient once he gets discharged. At this point he understands his option for palliative XRT and wants to think about his options in regards to the radiation therapy. I will see him as an outpatient to re discuss his options and findings and will move forward with palliative XRT if the patient decides to have radiation therapy. I extensively discussed the side effects, complications of radiation treatment with the patient, he understood what was explained. I gave him one of my cards. He was advised if I could be of any further assistance to please let me know, otherwise will proceed as above. Dr. Chin, thank you very much for the referral of this patient and allowing me to participate in his care. Should you have any further questions or concerns, please do not hesitate to contact me. MD OVIDIO Crowell/FLOYD /6:05 PM /10:03 AM DEBBY
--- NOTE | 2016-07-06 12:27 | HHI.PR ---
Subjective Remarks Resting in bed with regulatory assistant in interpretation Appetite fair/good Alert responsive Pain management Objective Objective Results - Vital Signs Date Time Temp Pulse Resp B/P Pulse Ox O2 Delivery O2 Flow Rate FiO2 07/06/16 09:07 96.7 76 20 155/76 93 07/06/16 00:00 94.4 76 18 144/72 95 07/05/16 20:00 96.6 80 20 151/64 96 07/05/16 17:26 16 07/05/16 17:26 16 07/05/16 16:00 95.4 70 18 162/70 98 I/O 07/05/16 07/05/16 07/05/16 07/06/16 07/06/16 07/06/16 07:00 15:00 23:00 07:00 15:00 23:00 Intake Total 120 ml 953 ml 550 ml 518 ml Output Total 400 ml 400 ml Balance 120 ml 553 ml 150 ml 518 ml Intake Oral 120 ml 380 ml 240 ml IV Total 573 ml 310 ml 518 ml Output Urine Total 400 ml 400 ml # Voids 2 1 # Bowel Movements 0 0 0 Result Diagram: 07/05/16 0555 07/05/16 0555 ROS General: Weakness (generalized), Other (10 point review of systems done. Positives noted which include constipation 4 days, otherwise systems unremarkable) GI: BM (constipation 4 days) Neuro/MS: Other (low back pain) Physical Exam Physical Exam PHYSICAL EXAMINATION GENERAL: This is a well-developed, well-nourished Other male who appears to be in no acute distress while resting in bed He is alert and awake, at his side HEAD: Normocephalic without any lesion or mass noted. Facial features appear symmetric. OROPHARYNGEAL: Oropharynx without erythema or edema. NECK: Supple. No nuchal rigidity or lymphadenopathy. Trachea midline without deviation. CARDIAC: Regular rhythm, regular rate, S1 and S2 are heard. Murmur none no gallops or rubs. LUNGS: Clear to auscultation bilaterally. No wheeze, no rhonchi No use of accessory muscles on inspiration or expiration. ABDOMEN: taut, nontender, no organomegaly or masses. Bowel sounds are heard in all four quadrants. No rebound. No guarding. EXTREMITIES: No edema. Pulses equal bilateral. NEUROLOGICAL: Patient mood and affect appropriate. No focal deficit SKIN:Warm and moist, pale mucous membranes, dry Objective Remarks This patch really helps my pain A/P Assessment and Plan Diagnosis: (1) Intractable pain (2) Bone metastasis (3) Anemia (4) Renal insufficiency (5) Spinal stenosis Patient status post bone marrow biopsy -Dr. Razo has been consulted, her input is appreciated Neurosurgery input appreciated, reviewed MRI. Recommend nonoperative treatment. -Rad oncology consulted, patient is agreeable to treatment regimen as an outpatient. -Continue with pain management per Dr. Valdes. Fentanyl patch and inc. Morphine . Patient pleased with patch for pain. States that has helped his pain management more than anything. Requesting that he be able to use this on an outpatient basis. Anemia, probable to current disease process We will monitor, currently 9.2 stable Renal insufficiency, acute kidney injury, persist Labs monitored, throughout his current disease event. No acute changes noted For DVT prophylaxis, SCDs/heparin Constipation bowel regimen with stool softeners, but will need further treatment regimen. Mag citrate ordered for this afternoon We'll monitor results Discharge planning in process. CM D/W Dr. Valdes, patient seen on his behalf D/W pt., and at bedside Discussed With: Family (patient and ), Other (Dr. Valdes, patient seen on his behalf) Emely Osorio Jul 06, 2016 12:27
[2016-07-06] MEDS ORDERED: MAGNESIUM CITRATE SOLN 300 ML BTL PO ONE ×2 (12:30→17:30)
[2016-07-06 12:50] VITALS: BP 161/74; PULSE 83; RESP 20; TEMP 97.7; O2SAT 94
[2016-07-06] MEDS: SODIUM CHLOR 0.9% 1000 ML INJ 1,000 ML IV SCH (15:29)
[2016-07-06 16:05] VITALS: BP_SYST 64; PULSE 64; RESP 20; TEMP 97.9; O2SAT 96
[2016-07-06] MEDS: PSYLLIUM FIBER SF/GF 6 GM POWD PKT PO SCH (17:30)
[2016-07-06 20:00] VITALS: BP 161/88; PULSE 70; RESP 18; TEMP 96.4; O2SAT 98
[2016-07-07] VITALS: BP 152/82; PULSE 66; RESP 20; TEMP 97.2; O2SAT 96
[2016-07-07] MEDS: HEPARIN SODIUM - SQ 10,000 UNITS/ML VIAL SQ SCH ×2 (05:27→15:47)
[2016-07-07] MEDS: PSYLLIUM FIBER SF/GF 6 GM POWD PKT PO SCH (07:06)
[2016-07-07] MEDS: DOCUSATE SODIUM 100 MG CAP PO SCH ×3 (07:07→15:47)
[2016-07-07] MEDS: SODIUM CHLORIDE 0.9% FLUSH 5 ML FLUSH FLUSH SCH ×2 (07:07→20:04)
[2016-07-07] MEDS: MORPHINE SULFATE 4 MG/ML INJ IV PUSH PRN ×2 (07:50→11:24)
[2016-07-07 08:00] VITALS: BP 151/66; PULSE 69; RESP 12; TEMP 97.3; O2SAT 95
[2016-07-07 12:00] VITALS: BP 170/71; PULSE 65; RESP 14; TEMP 97.6; O2SAT 95
--- NOTE | 2016-07-07 13:12 | PD.ONC.PN ---
Subjective Subjective Remarks Afebrile overnight. Patient states pain is well controlled with current plan. He was waiting for his to arrive, but she is no longer coming in, as she has fallen ill. Objective Data Date Time Temp Pulse Resp B/P Pulse Ox O2 Delivery O2 Flow Rate FiO2 07/07/16 12:00 97.6 65 14 170/71 95 07/07/16 08:00 97.3 69 12 151/66 95 07/07/16 00:00 97.2 66 20 152/82 96 07/06/16 23:44 18 07/06/16 20:00 96.4 70 18 161/88 98 07/06/16 16:05 97.9 64 20 64/ 96 07/07/16 07/07/16 07/07/16 07:00 15:00 23:00 Intake Total 240 ml 984 ml Output Total 400 ml Balance -160 ml 984 ml Result Diagram: 07/05/16 0555 07/05/1655 Administered Medications Medications (Trade) Dose Ordered Sig/Clement Route PRN Reason Start Time Stop Time Status Last Admin Dose Admin IV Flush (NS Flush) 2 ml BID FLUSH 07/03/16 21:00 07/07/16 07:07 Heparin Sodium (Porcine) 5000 units 5,000 units Q12H SQ 07/03/16 16:00 07/07/16 05:27 Sodium Chloride (NS 1000 ml Inj) 1,000 ml @ 42 mls/hr [id number] IV 07/04/16 19:15 07/06/16 15:29 Morphine Sulfate (Morphine Inj) 4 mg Q2H PRN IV PUSH PAIN SCALE 6 TO 10 07/05/16 16:15 07/07/16 11:24 Fentanyl (Duragesic 25 Mcg Patch.72 Hr) 1 patch Q3D TD 07/05/16 15:00 07/05/16 16:30 Docusate Sodium (Colace) 100 mg TID PO 07/06/16 18:00 07/07/16 11:21 Psyllium Hydrophilic Mucilloid (Metamucil Smooth Texture Sf/ Gf Pkt) 1 pkt DAILY PO 07/06/16 17:30 07/07/16 07:06 Objective Remarks GENERAL: Elderly male, sitting up in bed in [facility]. SKIN: Warm and dry. HEAD: Normocephalic. EYES: No injection or drainage. NECK: Supple, trachea midline. CARDIOVASCULAR: Regular rate and rhythm. RESPIRATORY: Breath sounds equal bilaterally. No accessory muscle use. GASTROINTESTINAL: Abdomen soft, non-tender, nondistended. EXTREMITIES: No cyanosis NEUROLOGICAL: awake and alert, normal speech Assessment/Plan Problem List: (1) Bone metastasis Status: Acute Plan: --11x6mm mass extending into the spinal canal at T6. +multiplicity of lytic lesions concerning for multiple myeloma versus metastatic cancer. --SPEP pending --bone marrow biopsy shows features consistent with multiple myeloma. --PSA WNL --B12 WNL --IGG elevated @ 6K --fs faxed to npr Assessment 89y/o male with lytic bone lesions suspicious for multiple myeloma h/o anxiety and benign prostatic hypertrophy. Plan 1. will give one time dose of decadron 20 mg po x1 today. 2. will need follow up in clinic once discharged--fs faxed to new patient referrals 3. I used the translation service to speak with patient and spoke with his over the phone and reviewed biopsy results with both of them. I also printed out patient information on multiple myeloma in [place] and [place]. Zaida Menjivar Jul 07, 2016 13:12 Kana Morales MD Jul 07, 2016 18:43
[2016-07-07] MEDS ORDERED: DEXAMETHASONE 4 MG TAB PO ONE (13:30)
--- NOTE | 2016-07-07 15:32 | HHI.NSPN ---
(Lauren Spencer) Note Status Status: Progress Note (Lauren Spencer) Interval History Interval History This is an 89-year-old man with history of anxiety and benign prostatic hypertrophy. He denies any previous cancer. Mr. Davey came to the ER with chest pain. He has noted pain that became progressively worse radiating from the back. His pain was described as 02/06. CT scan done at [facility] showed under-mineralized bones with lytic lesions of multiple levels, the largest in the T6 vertebral body, extends into the right pedicle. Apparently he was found to have a hemoglobin of 9.9 and a decreased renal function to 44%. CT scan of the chest showed no pulmonary nodules. He denies any fevers, chills or night sweats. He has not been sick before. His pain has gotten progressively worse. He denies any headaches or vision changes. A neurosurgical consultation was requested 07/05: MRI spine shows multiple bony lesions throughout the cervical, thoracic and lumbar spine without evidence of retropulsion or neural compromise on MRI. Patient reports he feels a little bit better today. 07/07: biopsy consistent with multiple myeloma. Patient reports back pain controlled on pain medications. Denies focal weakness in lower extremities. ( Lauren Spencer) Labs, Micro, & Vital Signs Results Date Time Temp Pulse Resp B/P Pulse Ox O2 Delivery O2 Flow Rate FiO2 07/07/16 12:00 97.6 65 14 170/71 95 07/07/16 08:00 97.3 69 12 151/66 95 07/07/16 00:00 97.2 66 20 152/82 96 07/06/16 23:44 18 07/06/16 20:00 96.4 70 18 161/88 98 07/06/16 16:05 97.9 64 20 64/ 96 07/07/16 07:00 Intake Total 1958 ml Output Total 1000 ml Balance 958 ml Constitutional Vital Signs Date Time Temp Pulse Resp B/P Pulse Ox O2 Delivery O2 Flow Rate FiO2 07/07/16 12:00 97.6 65 14 170/71 95 07/07/16 08:00 97.3 69 12 151/66 95 07/07/16 00:00 97.2 66 20 152/82 96 07/06/16 23:44 18 07/06/16 20:00 96.4 70 18 161/88 98 07/06/16 16:05 97.9 64 20 64/ 96 07/07/16 07:00 Intake Total 1958 ml Output Total 1000 ml Balance 958 ml (Lauren Spencer) Review of Systems/Exam Exam Mr. Quintanilla is alert, awake and oriented to time, place and person. Follows commands. Appears comfortable in bed. Cranial nerve examination: pupils to be equal, round, and reactive to light. Extra-ocular movements are intact. Facial motor normal and symmetrical. The uvula is midline and elevates symmetrically with the soft palate. Muscle strength is 5/5 in all muscle groups of both upper extremities including deltoid, biceps, triceps and top and seat cover fitter. In the lower extremities, strength is 5/5 in both iliopsoas, quadriceps, hamstrings, plantar flexion, dorsiflexion, and extensor hallicus longus. Sensory examination is intact to light touch in both the upper and lower extremities, symmetrically. Deep tendon reflexes are 2+ in the biceps, triceps, and brachioradialis, bilaterally, in the upper extremities. In the lower extremities, the patellar and Achilles are 2+, bilaterally. There is a bilateral plantar flexion response. Hoffmanns sign is negative. There is no clonus Cerebellar examination is intact to [id number] test (Lauren Spencer) Exam Mr. Quintanilla is alert, awake and oriented to time, place and person. Follows commands. Appears comfortable in bed. Cranial nerve examination: pupils to be equal, round, and reactive to light. Extra-ocular movements are intact. Facial motor normal and symmetrical. The uvula is midline and elevates symmetrically with the soft palate. Muscle strength is 5/5 in all muscle groups of both upper extremities including deltoid, biceps, triceps and top and seat cover fitter. In the lower extremities, strength is 5/5 in both iliopsoas, quadriceps, hamstrings, plantar flexion, dorsiflexion, and extensor hallicus longus. Sensory examination is intact to light touch in both the upper and lower extremities, symmetrically. Deep tendon reflexes are 2+ in the biceps, triceps, and brachioradialis, bilaterally, in the upper extremities. In the lower extremities, the patellar and Achilles are 2+, bilaterally. There is a bilateral plantar flexion response. Hoffmanns sign is negative. There is no clonus Cerebellar examination is intact (Steve Chin MD) Medications Current Medications Current Medications Medications (Trade) Dose Ordered Sig/Clement Route PRN Reason Start Time Stop Time Status Last Admin Dose Admin IV Flush (NS Flush) 2 ml UNSCH PRN FLUSH FLUSH AFTER USING IV ACCESS 07/03/16 15:45 IV Flush (NS Flush) 2 ml BID FLUSH 07/03/16 21:00 07/07/16 07:07 Acetaminophen (Tylenol) 650 mg Q4H PRN PO TEMP > 100.4 07/03/16 15:45 Magnesium Hydroxide (Milk Of Magnsindy Liq) 30 ml Q12H PRN PO CONSTIPATION 07/03/16 15:45 Sennosides (Senokot) 17.2 mg Q12H PRN PO CONSTIPATION 07/03/16 15:45 Heparin Sodium (Porcine) (Heparin Inj) 5,000 units Q12H SQ 07/03/16 16:00 07/07/16 05:27 Naloxone HCl 0.4 mg 0.4 mg UNSCH PRN IV SEE LABEL COMMENTS 07/03/16 15:45 Sodium Chloride (NS 1000 ml Inj) 1,000 ml @ 42 mls/hr [id number] IV 07/04/16 19:15 07/06/16 15:29 Fentanyl (Duragesic 25 Mcg Patch.72 Hr) 1 patch Q3D TD 07/05/16 15:00 07/05/16 16:30 Miscellaneous Information 1 Q3D T-DERMAL 07/08/16 15:00 Docusate Sodium (Colace) 100 mg TID PO 07/06/16 18:00 07/07/16 11:21 Psyllium Hydrophilic Mucilloid (Metamucil Smooth Texture Sf/ Gf Pkt) 1 pkt DAILY PO 07/06/16 17:30 07/07/16 07:06 Pantoprazole Sodium (Protonix) 20 mg DAILY PO 07/08/16 09:00 Morphine Sulfate (Msir) 15 mg Q4H PRN PO breakthrough pain 07/07/16 15:00 (Lauren Spencer) Medical Decision Making MDM Remarks 89 y/o male with multiple bony spine lesion, suspected metastatic malignant melanoma per oncology (Lauren Spencer) Plan Plan Remarks bone bx consistent with Multiple myeloma radiation oncology for radiosurgery, cont oncology management cont supportive care of pain neuro stable will sign off, call prn (Lauren Spencer) Attending Statement continue neuro checks in a serial fashion. MRI T spine again reviewed Respiratory. Continue pulmonary toilette, nasotracheal suction, and breathing treatments with nebulizers. PT and OT evaluation Nutrition. Continue Oral diet Renal. Continue to monitor closely urine output, BUN and creatinine Endocrine. Monitor serial Acu checks and SSI for tight control ID continue to monitor for signs of infection Continue Protonix for stress ulcer prophylaxis Continue Terrence hose and SCD's for DVT prophylaxis The exam, history, and the medical decision-making described in the above note were completed with the assistance of the mid-level provider. I reviewed and agree with the findings presented. I attest that I had a [id number] encounter with the patient on the same day, and personally performed and documented my assessment and findings in the medical record. (Steve Chin MD) Lauren Spencer Jul 07, 2016 15:32 Steve Chin MD Jul 07, 2016 15:47
[2016-07-07] MEDS: MORPHINE SULFATE 15 MG TAB PO PRN (15:43)
--- NOTE | 2016-07-07 15:46 | HHI.NSPN ---
Note Status Status: Progress Note Interval History Diagnosis This note reflects my encounter with the patient ON 07/06 2016 DURING rounds Multiple spinal mets Interval History This note reflects my encounter with the patient ON 07/06 2016 DURING rounds This is an 89-year-old man with history of anxiety and benign prostatic hypertrophy. He denies any previous cancer. Mr. Davey came to the ER with chest pain. He has noted pain that became progressively worse radiating from the back. His pain was described as 10/10. CT scan done at [facility] showed under-mineralized bones with lytic lesions of multiple levels, the largest in the T6 vertebral body, extends into the right pedicle. Apparently he was found to have a hemoglobin of 9.9 and a decreased renal function to 44%. CT scan of the chest showed no pulmonary nodules. He denies any fevers, chills or night sweats. He has not been sick before. His pain has gotten progressively worse. He denies any headaches or vision changes. A neurosurgical consultation was requested 07/04: MRI spine shows multiple bony lesions throughout the cervical, thoracic and lumbar spine without retropulsion or neural compromise. He continues to suffer severe pain. multiple myeloma suspected. Labs, Micro, & Vital Signs Results This note reflects my encounter with the patient ON 07/06 2016 DURING rounds Date Time Temp Pulse Resp B/P Pulse Ox O2 Delivery O2 Flow Rate FiO2 07/07/16 12:00 97.6 65 14 170/71 95 07/07/16 08:00 97.3 69 12 151/66 95 07/07/16 00:00 97.2 66 20 152/82 96 07/06/16 23:44 18 07/06/16 20:00 96.4 70 18 161/88 98 07/06/16 16:05 97.9 64 20 64/ 96 07/07/16 07:00 Intake Total 1958 ml Output Total 1000 ml Balance 958 ml Constitutional This note reflects my encounter with the patient ON 07/06 2016 DURING rounds Vital Signs Date Time Temp Pulse Resp B/P Pulse Ox O2 Delivery O2 Flow Rate FiO2 07/07/16 12:00 97.6 65 14 170/71 95 07/07/16 08:00 97.3 69 12 151/66 95 07/07/16 00:00 97.2 66 20 152/82 96 07/06/16 23:44 18 07/06/16 20:00 96.4 70 18 161/88 98 07/06/16 16:05 97.9 64 20 64/ 96 07/07/16 07:00 Intake Total 1958 ml Output Total 1000 ml Balance 958 ml Review of Systems/Exam Exam This note reflects my encounter with the patient ON 07/06 2016 DURING rounds Mr. Quintanilla is alert, awake and oriented to time, place and person. Follows commands. Appears comfortable in bed. Cranial nerve examination: pupils to be equal, round, and reactive to light. Extra-ocular movements are intact. Facial motor normal and symmetrical. The uvula is midline and elevates symmetrically with the soft palate. Muscle strength is 5/5 in all muscle groups of both upper extremities including deltoid, biceps, triceps and electroplater apprentice. In the lower extremities, strength is 5/5 in both iliopsoas, quadriceps, hamstrings, plantar flexion, dorsiflexion, and extensor hallicus longus. Sensory examination is intact to light touch in both the upper and lower extremities, symmetrically. Deep tendon reflexes are 2+ in the biceps, triceps, and brachioradialis, bilaterally, in the upper extremities. In the lower extremities, the patellar and Achilles are 2+, bilaterally. There is a bilateral plantar flexion response. Hoffmanns sign is negative. There is no clonus Cerebellar examination is intact to [id number] test Medications Current Medications This note reflects my encounter with the patient ON 07/06 2016 DURING rounds Current Medications Morphine Sulfate (Morphine Inj) 2 mg ONCE ONCE IV PUSH Last administered on 12:50; Start 07/03/16 at 12:30; Stop 07/03/16 at 12:32; Status DC Ondansetron HCl (Zofran Inj) 4 mg ONCE ONCE IV PUSH Last administered on 12:49; Start 07/03/16 at 12:30; Stop 07/03/16 at 12:32; Status DC Hydromorphone HCl (Dilaudid Pf Inj) 1 mg ONCE ONCE IV PUSH Last administered on 07/03/16 13:52; Start 07/03/16 at 13:45; Stop 07/03/16 at 13:46; Status DC IV Flush (NS Flush) 2 ml UNSCH PRN FLUSH FLUSH AFTER USING IV ACCESS; Start 07/03/16 at 15:45 IV Flush (NS Flush) 2 ml BID FLUSH Last administered on 07/07/16 07:07; Start 07/03/16 at 21:00 Acetaminophen (Tylenol) 650 mg Q4H PRN PO TEMP > 100.4; Start 07/03/16 at 15:45 Docusate Sodium (Colace) 100 mg Q12H PO Last administered on 07/06/16 15:28; Start 07/03/16 at 17:00; Stop 07/06/16 at 17:27; Status DC Magnesium Hydroxide (Milk Of Magnesia Liq) 30 ml Q12H PRN PO CONSTIPATION; Start 07/03/16 at 15:45 Sennosides (Senokot) 17.2 mg Q12H PRN PO CONSTIPATION; Start 07/03/16 at 15:45 Heparin Sodium (Porcine) (Heparin Inj) 5,000 units Q12H SQ Last administered on 07/07/16 05:27; Start 07/03/16 at 16:00 Naloxone HCl (Narcan Inj) 0.4 mg UNSCH PRN IV SEE LABEL COMMENTS; Start at 15:45 Iohexol (Omnipaque 350 Inj) 93 ml STK-MED ONCE IV Last administered on 16:45; Start 07/03/16 at 16:45; Stop 07/03/16 at 16:46; Status DC Morphine Sulfate (Morphine Inj) 2 mg Q3H PRN IV PUSH PAIN SCALE 4 TO 10 Last administered on 07/05/16 13:52; Start 07/03/16 at 18:15; Stop 07/05/16 at 14:30; Status DC Gadodiamide (Omniscan Pf Inj) 15 ml STK-MED ONCE IV Last administered on 11:07; Start 07/04/16 at 11:07; Stop 07/04/16 at 11:08; Status DC Acetaminophen (Tylenol) 650 mg ONCE ONCE PO Last administered on 07/04/16 13: 48; Start 07/04/16 at 13:45; Stop 07/04/16 at 13:46; Status DC Lidocaine/ Epinephrine 20 ml 20 ml STK-MED ONCE .ROUTE Last administered on 07/04 14:46; Start 07/04/16 at 14:46; Stop 07/04/16 at 14:47; Status DC Sodium Bicarbonate (Sodium Bicarbonate 8.4% Inj) 50 ml @ As Directed STK-MED ONCE .ROUTE Last administered on 07/04/16 14:46; Start 07/04/16 at 14:46; Stop 07/04/16 at 14:47; Status DC Fentanyl Citrate (fentaNYL INJ) 250 mcg STK-MED ONCE .ROUTE Last administered on 07/04/16 15:25; Start 07/04/16 at 15:25; Stop 07/04/16 at 15:26; Status DC Midazolam HCl 5 mg 5 mg STK-MED ONCE .ROUTE Last administered on 07/04/16 15:25 ; Start 07/04/16 at 15:25; Stop 07/04/16 at 15:26; Status DC Sodium Chloride (NS 1000 ml Inj) 1,000 ml @ 42 mls/hr [id number] IV Last administered on 07/06/16 15:29; Start 07/04/16 at 19:15 Morphine Sulfate (Morphine Inj) 4 mg Q2H PRN IV PUSH PAIN SCALE 6 TO 10 Last administered on 07/07/16 11:24; Start 07/05/16 at 16:15; Stop 07/07/16 at 13:49 ; Status DC Fentanyl (Duragesic 25 Mcg Patch.72 Hr) 1 patch Q3D TD Last administered on 16:30; Start 07/05/16 at 15:00 Miscellaneous Information 1 Q3D T-DERMAL ; Start 07/08/16 at 15:00 Morphine Sulfate (Morphine Inj) 2 mg Q2H PRN IV PUSH PAIN SCALE 2 TO 5; Start 07/05/16 at 14:30; Stop 07/07/16 at 13:49; Status DC Methylprednisolone Sodium Succinate (SoluMEDROL INJ) 125 mg ONCE ONCE IV PUSH Last administered on 07/05/16 17:05; Start 07/05/16 at 15:00; Stop 07/05/16 at 15: 01; Status DC Magnesium Citrate (Citroma Liq) 300 ml ONCE ONCE PO Last administered on 12:39; Start 07/06/16 at 12:30; Stop 07/06/16 at 12:33; Status DC Docusate Sodium (Colace) 100 mg TID PO Last administered on 07/07/16 11:21; Start 07/06/16 at 18:00 Psyllium Hydrophilic Mucilloid (Metamucil Smooth Texture Sf/ Gf Pkt) 1 pkt DAILY PO Last administered on 07/07/16 07:06; Start 07/06/16 at 17:30 Magnesium Citrate (Citroma Liq) 150 ml ONCE ONCE PO Last administered on 17:38; Start 07/06/16 at 17:30; Stop 07/06/16 at 17:31; Status DC Dexamethasone (Decadron) 20 mg ONCE ONCE PO Last administered on 07/07/16 14: 04; Start 07/07/16 at 13:30; Stop 07/07/16 at 13:31; Status DC Pantoprazole Sodium (Protonix) 20 mg DAILY PO ; Start 07/08/16 at 09:00 Morphine Sulfate (Msir) 15 mg Q4H PRN PO breakthrough pain; Start 07/07/16 at 15:00 Plan Plan Remarks This note reflects my encounter with the patient ON 07/06 2016 DURING rounds 89 y/o male with multiple bony spine lesion, suspected metastatic malignant melanoma versus myeloma Attending Statement This note reflects my encounter with the patient ON 07/06 2016 DURING rounds continue neuro checks in a serial fashion. MRI T spine again reviewed Respiratory. Continue pulmonary toilette, nasotracheal suction, and breathing treatments with nebulizers. PT and OT evaluation Nutrition. Continue Oral diet Renal. Continue to monitor closely urine output, BUN and creatinine Endocrine. Monitor serial Acu checks and SSI for tight control ID continue to monitor for signs of infection Continue Protonix for stress ulcer prophylaxis Continue Terrence anderson and SCD's for DVT prophylaxis Steve Chin MD Jul 07, 2016 15:46
[2016-07-07] MEDS: SODIUM CHLOR 0.9% 1000 ML INJ 1,000 ML IV SCH (15:49)
[2016-07-07 16:00] VITALS: BP 176/70; PULSE 77; RESP 20; TEMP 96.8; O2SAT 97
[2016-07-07] MEDS ORDERED: hydrALAZINE HCL 20 MG/ML VIAL IV PUSH PRN (16:00)
--- NOTE | 2016-07-07 16:34 | HHI.PR ---
Subjective Remarks Resting in bed, understands simple yes no [place] language Chinese Appetite fair/good Alert responsive Pain management (Emely Osorio) Objective Objective Results - Vital Signs Date Time Temp Pulse Resp B/P Pulse Ox O2 Delivery O2 Flow Rate FiO2 07/07/16 16:00 96.8 77 20 176/70 97 07/07/16 12:00 97.6 65 14 170/71 95 07/07/16 08:00 97.3 69 12 151/66 95 07/07/16 00:00 97.2 66 20 152/82 96 07/06/16 23:44 18 07/06/16 20:00 96.4 70 18 161/88 98 I/O 07/06/16 07/06/16 07/06/16 07/07/16 07/07/16 07/07/16 07:00 15:00 23:00 07:00 15:00 23:00 Intake Total 550 ml 518 ml 1200 ml 240 ml 1784 ml Output Total 400 ml 600 ml 400 ml 600 ml Balance 150 ml 518 ml 600 ml -160 ml 1184 ml Intake Oral 240 ml 1200 ml 240 ml 800 ml IV Total 310 ml 518 ml 984 ml Output Urine Total 400 ml 600 ml 400 ml 600 ml # Bowel Movements 0 0 0 2 (Emely Osorio) Result Diagram: 07/05/16 0555 07/05/16 0555 ROS General: Weakness (generalized), Other (10 point ROS done positives noted generalized weakness pain management, other systems negative) GI: Abdominal Pain (mild off and on, pain management) (Emely Osorio) Physical Exam Physical Exam PHYSICAL EXAMINATION GENERAL: This is a well-developed, well-nourished Other male who appears to be in no acute distress. He is alert and awake, []. HEAD: Normocephalic without any lesion or mass noted. Facial features appear symmetric. OROPHARYNGEAL: Oropharynx without erythema or edema. NECK: Supple. No nuchal rigidity or lymphadenopathy. Trachea midline without deviation. CARDIAC: Regular rhythm, regular rate, S1 and S2 are heard. Murmur []; no gallops or rubs. LUNGS: Clear to auscultation bilaterally. [] wheeze, [] rhonchi or [] rale. No use of accessory muscles on inspiration or expiration. ABDOMEN: Soft, nontender, no organomegaly or masses. Bowel sounds are heard in all four quadrants. No rebound. No guarding. EXTREMITIES: [] edema. Pulses equal bilateral. [] cyanosis. NEUROLOGICAL: Patient mood and affect appropriate. No focal deficit SKIN:Warm and moist Objective Remarks Resting fairly well (Emely Osorio) A/P Assessment and Plan Diagnosis: (1) Intractable pain (2) Bone metastasis (3) Anemia (4) Renal insufficiency (5) Spinal stenosis Patient status post bone marrow biopsy -Dr. Razo has been consulted, her input is appreciated Results pending Neurosurgery input appreciated, reviewed MRI. Recommend nonoperative treatment. -Rad oncology consulted, patient is agreeable to treatment regimen as an outpatient. Monitor neuro checks, eval PT OT activity and mobility. -Continue with pain management per Dr. Valdes. Fentanyl patch and inc. Morphine . Patient pleased with patch for pain. States that has helped his pain management more than anything. Requesting that he be able to use this on an outpatient basis. Anemia, probable to current disease process, stable at 9.2 Hematology will follow up in the outpatient clinic, Steroids dose 1 today. Renal insufficiency, acute kidney injury, persist Labs monitored, throughout his current disease event. No acute changes noted For DVT prophylaxis, SCDs/heparin Constipation bowel regimen with stool softeners, but will need further treatment regimen. Mag citrate ordered for this afternoon We'll monitor results Discharge planning in process. CM. waiting on biopsy results, then patient should be able to be managed on an outpatient basis D/W Dr. Valdes, patient seen on his behalf D/W pt., and at bedside Discussed With: Family (patient and ), Other (Dr. Valdes, patient seen on his behalf) (Emely Osorio) Assessment and Plan seen and examined by myself,Dr Valdes , on 07/07/16 Discussed with patient And with nurse Duragesic patch renewed Can be discharged home when agreeable with consultants Discussed with mid-level practitioner The exam, history, and the medical decision-making described in the above note were completed with the assistance of the mid-level provider. I reviewed the findings presented. I attest that I had a [id number] encounter with the patient on the same day, and personally performed and documented my assessment and findings in the medical record (José Miguel Valdes MD) Emely Osorio Jul 07, 2016 16:34 José Miguel Valdes MD Jul 08, 2016 14:40
[2016-07-07] MEDS ORDERED: ENALAPRILAT 2.5 MG/2 ML VIAL IV PUSH PRN (16:45)
[2016-07-07 20:00] VITALS: BP 162/73; PULSE 69; RESP 20; TEMP 97.8; O2SAT 96
[2016-07-07] MEDS ORDERED: fentaNYL 25 MCG/HR PATCH TD SCH (20:00)
[2016-07-08] VITALS: BP 162/74; PULSE 74; RESP 20; TEMP 97.4; O2SAT 96
[2016-07-08] MEDS: HEPARIN SODIUM - SQ 10,000 UNITS/ML VIAL SQ SCH ×2 (04:42→17:34)
[2016-07-08 08:00] VITALS: BP 174/78; PULSE 66; RESP 16; TEMP 95.6; O2SAT 97
[2016-07-08] MEDS: SODIUM CHLORIDE 0.9% FLUSH 5 ML FLUSH FLUSH SCH ×2 (08:04→21:00)
[2016-07-08] MEDS: DOCUSATE SODIUM 100 MG CAP PO SCH ×3 (08:04→17:34)
[2016-07-08] MEDS: PANTOPRAZOLE SOD 20 MG DELAYED RELEASE TAB PO SCH (08:04)
[2016-07-08] MEDS: PSYLLIUM FIBER SF/GF 6 GM POWD PKT PO SCH (08:04)
--- NOTE | 2016-07-08 09:54 | PD.ONC.PN ---
Subjective Subjective Remarks Afebrile overnight. patient resting comfortably. Wanting to know when he can go home. Objective Data Date Time Temp Pulse Resp B/P Pulse Ox O2 Delivery O2 Flow Rate FiO2 07/08/16 08:00 95.6 66 16 174/78 97 07/08/16 04:44 18 07/08/16 00:00 97.4 74 20 162/74 96 07/07/16 21:04 18 07/07/16 20:00 97.8 69 20 162/73 96 07/07/16 16:00 96.8 77 20 176/70 97 07/07/16 12:00 97.6 65 14 170/71 95 07/08/16 07/08/16 07/08/16 07:00 15:00 23:00 Intake Total 120 ml Output Total 250 ml Balance -130 ml Result Diagram: 07/05/16 0555 07/05/16 0555 Administered Medications Medications (Trade) Dose Ordered Sig/Clement Route PRN Reason Start Time Stop Time Status Last Admin Dose Admin IV Flush (NS Flush) 2 ml BID FLUSH 07/03/16 21:00 07/07/16 20:04 Acetaminophen (Tylenol) 650 mg Q4H PRN PO TEMP > 100.4 07/03/16 15:45 07/08/16 01:06 Heparin Sodium (Porcine) 5000 units 5,000 units Q12H SQ 07/03/16 16:00 07/08/16 04:42 Sodium Chloride (NS 1000 ml Inj) 1,000 ml @ 42 mls/hr [id number] IV 07/04/16 19:15 07/07/16 15:49 Docusate Sodium (Colace) 100 mg TID PO 07/06/16 18:00 07/08/16 08:04 Psyllium Hydrophilic Mucilloid (Metamucil Smooth Texture Sf/ Gf Pkt) 1 pkt DAILY PO 07/06/16 17:30 07/08/16 08:04 Pantoprazole Sodium (Protonix) 20 mg DAILY PO 07/08/16 09:00 07/08/16 08:04 Morphine Sulfate (Msir) 15 mg Q4H PRN PO breakthrough pain 07/07/16 15:00 07/07/16 15:43 Fentanyl (Duragesic 25 Mcg Patch.72 Hr) 1 patch Q2D TD 07/07/16 20:00 07/07/16 20:04 Objective Remarks GENERAL: Elderly male, upright in bed in nad. SKIN: Warm and dry. HEAD: Normocephalic. EYES: No injection or drainage. NECK: Supple, trachea midline. CARDIOVASCULAR: Regular rate and rhythm. RESPIRATORY: Breath sounds equal bilaterally. No accessory muscle use. GASTROINTESTINAL: Abdomen soft, non-tender, nondistended. EXTREMITIES: No cyanosis NEUROLOGICAL: awake and alert, normal speech. able to move extremities. Assessment/Plan Problem List: (1) Bone metastasis Status: Acute Plan: --11x6mm mass extending into the spinal canal at T6. +multiplicity of lytic lesions concerning for multiple myeloma versus metastatic cancer. --bone marrow biopsy shows features consistent with multiple myeloma. --PSA WNL --B12 WNL --IGG elevated @ 6K --fs faxed to [facility] Assessment 89y/o male with lytic bone lesions suspicious for multiple myeloma h/o anxiety and benign prostatic hypertrophy. Plan 1. clear for discharge--once discharged has appointments already scheduled for follow up--these were discussed with patient and . 2. again discussed with patient and , new diagnosis of multiple myeloma, plan to start RVD treatment in clinic, already given one time dose of Decadron yesterday. Attending Statement The exam, history, and the medical decision-making described in the above note were completed with the assistance of the mid-level provider. I reviewed and agree with the findings presented. I attest that I had a [id number] encounter with the patient on the same day, and personally performed and documented my assessment and findings in the medical record. Outpatient oncology f/u Zaida Menjivar Jul 08, 2016 09:54 Layo Spicer MD Jul 08, 2016 13:29
[2016-07-08 10:09] LABS: AUTOMATED NEUTROPHIL # 2.7 TH/MM3 (1.8-7.7); BASOPHIL % 0.5 % (0.0-2.0); EOSINOPHIL # 0.2 TH/MM3 (0-0.4); EOSINOPHIL % 4.6 % (0.0-4.0); HEMATOCRIT 28.2 % (39.0-51.0); HEMO FLAGS DIFF FINAL; LYMPH % 26.3 % (9.0-44.0); LYMPHOCYTE # 1.2 TH/MM3 (1.0-4.8); MEAN CELL VOLUME 103.3 FL (80.0-100.0); MEAN CORPUSCULAR HEMOGLOBIN 35.5 PG (27.0-34.0); MEAN CORPUSCULAR HGB CONC 34.3 % (32.0-36.0); MONO % 7.8 % (0.0-8.0); NEUT % 60.8 % (16.0-70.0); PLATELET COUNT 222 TH/MM3 (150-450); RED BLOOD COUNT 2.73 MIL/MM3 (4.50-5.90); RED CELL DISTRIBUTION WIDTH 14.9 % (11.6-17.2); WHITE BLOOD COUNT 4.4 TH/MM3 (4.0-11.0)
[2016-07-08 12:00] VITALS: BP 174/73; PULSE 73; RESP 18; TEMP 97.8; O2SAT 96
--- NOTE | 2016-07-08 14:44 | HHI.PR ---
Subjective Remarks Resting in bed, understands simple yes no [place] language French Appetite fair/good Alert responsive Pain management with patch. Objective Objective Results - Vital Signs Date Time Temp Pulse Resp B/P Pulse Ox O2 Delivery O2 Flow Rate FiO2 07/08/16 12:00 97.8 73 18 174/73 96 07/08/16 08:00 95.6 66 16 174/78 97 07/08/16 04:44 18 07/08/16 00:00 97.4 74 20 162/74 96 07/07/16 21:04 18 07/07/16 20:00 97.8 69 20 162/73 96 07/07/16 16:00 96.8 77 20 176/70 97 I/O 07/07/16 07/07/16 07/07/16 07/08/16 07/08/16 07/08/16 07:00 15:00 23:00 07:00 15:00 23:00 Intake Total 240 ml 1784 ml 320 ml 120 ml 360 ml Output Total 400 ml 600 ml 300 ml 250 ml 300 ml Balance -160 ml 1184 ml 20 ml -130 ml 60 ml Intake Oral 240 ml 800 ml 320 ml 120 ml 360 ml IV Total 984 ml Output Urine Total 400 ml 600 ml 300 ml 250 ml 300 ml # Bowel Movements 0 2 0 0 0 Result Diagram: 07/08/16 0900 07/05/16 0555 Medications and IVs Active Medications Enalaprilat (Vasotec Inj) 2.5 mg Q6H PRN IV PUSH; Start 07/07/16 at 16:45 Fentanyl (Duragesic 25 Mcg Patch.72 Hr) 1 patch Q2D TD Last administered on 20:04; Admin Dose 1 PATCH; Start 07/07/16 at 20:00 Hydralazine HCl (Apresoline Inj) 20 mg Q4H PRN IV PUSH; Start 07/07/16 at 16:00 ; Stop 07/07/16 at 16:38; Status DC Miscellaneous Information 1 Q2D T-DERMAL; Start 07/09/16 at 20:00 Morphine Sulfate (Msir) 15 mg Q4H PRN PO Last administered on 07/07/16 15:43; Admin Dose 15 MG; Start 07/07/16 at 15:00 Pantoprazole Sodium (Protonix) 20 mg DAILY PO Last administered on 3/11/17at 08: 04; Admin Dose 20 MG; Start 07/08/16 at 09:00 ROS General: Weakness (low back pain, ), Other (10 point ROS done. Chief issues noted her pain management, mobility and bowel management other systems unremarkable) GI: BM (today, normal) Physical Exam Physical Exam PHYSICAL EXAMINATION GENERAL: This is a well-developed, well-nourished male who appears to be in no acute distress with pain management on board. He is alert and awake, HEAD: Normocephalic without any lesion or mass noted. Facial features appear symmetric. OROPHARYNGEAL: Oropharynx without erythema or edema. NECK: Supple. No nuchal rigidity or lymphadenopathy. Trachea midline without deviation. CARDIAC: Regular rhythm, regular rate, S1 and S2 are heard. Murmur none ,no gallops or rubs. LUNGS: Clear to auscultation bilaterally. No wheeze, no rhonchi. No use of accessory muscles on inspiration or expiration. ABDOMEN: Soft, nontender, no organomegaly or masses. Bowel sounds are heard in all four quadrants. No rebound. No guarding. EXTREMITIES: No edema. Pulses equal bilateral. NEUROLOGICAL: Patient mood and affect appropriate. No focal deficit SKIN:Warm and moist Objective Remarks I'm doing pretty good when I take my pain medicine. A/P Assessment and Plan Diagnosis: (1) Intractable pain Controlled with fentanyl patch and by mouth morphine (2) Bone metastasis Biopsy back probable multiple Myeloma (3) Anemia Stable (4) Renal insufficiency Stable (5) Spinal stenosis Will follow up as outpatient for a treatment regimen with oncology. Patient status post bone marrow biopsy probable multiple myeloma Set up with Dr. Patel for outpatient treatment regimen Neurosurgery input appreciated, reviewed MRI. Recommend nonoperative treatment. Monitor neuro checks, eval PT OT activity and mobility. On discharge, possibly today, case management has been called to help set up for bedside commode and rolling walker -Continue with pain management . Fentanyl patch and inc. Morphine . Patient pleased with patch for pain. States that has helped his pain management more than anything. Anemia, probable to current disease process, stable Hematology will follow up in the outpatient clinic, appointments given to and patient this morning. Son currently in room and is given more information on out patient follow-up Steroids dosing already initiated Renal insufficiency, acute kidney injury, monitored with labs stable for now For DVT prophylaxis, SCDs/heparin Constipation , positive results with mag citrate Discussed With: Family (patient and ), Other (Dr. Valdes, patient seen on his behalf) Emely Osorio Jul 08, 2016 14:43
[2016-07-08 16:00] VITALS: BP 174/76; PULSE 79; RESP 20; TEMP 96.9; O2SAT 96
[2016-07-08] MEDS ORDERED: PANT20 PO (16:09)
[2016-07-08] MEDS ORDERED: FENT25T TD (16:09)
--- NOTE | 2016-07-08 16:46 | HHI.FF ---
Face to Face Verification Diagnosis: (1) Multiple myeloma (2) Intractable pain (3) Bone metastasis (4) Anemia (5) Renal insufficiency (6) Spinal stenosis Home Health Nursing Order: Nursing assessment with vital signs Home Health Aide Order: To Assist In: Bathing and personal care I have seen patient James Quintanilla on 07/08/16. My clinical findings support the need for the requested home health care services because: Deconditioned w/ increased weakness High risk of falls I certify that my clinical findings support that this patient is homebound because: Impaired cognitive ability/safety Need for psychosocial assistance Emely Osorio Jul 08, 2016 16:46
[2016-07-08] MEDS ORDERED: MISC-163 (16:55)
[2016-07-08] MEDS ORDERED: MISC-274 (16:58)
[2016-07-08] MEDS: MORPHINE SULFATE 15 MG TAB PO PRN ×2 (17:34→22:12)
[2016-07-08] MEDS: SODIUM CHLOR 0.9% 1000 ML INJ 1,000 ML IV SCH (17:35)
--- NOTE | 2016-07-08 17:44 | HHI.NSPN ---
Note Status Status: Progress Note Interval History Diagnosis Multiple spinal mets Interval History This is an 89-year-old man with history of anxiety and benign prostatic hypertrophy. He denies any previous cancer. Mr. Davey came to the ER with chest pain. He has noted pain that became progressively worse radiating from the back. His pain was described as 10/10. CT scan done at [place] [facility] showed under-mineralized bones with lytic lesions of multiple levels, the largest in the T6 vertebral body, extends into the right pedicle. Apparently he was found to have a hemoglobin of 9.9 and a decreased renal function to 44%. CT scan of the chest showed no pulmonary nodules. He denies any fevers, chills or night sweats. He has not been sick before. His pain has gotten progressively worse. He denies any headaches or vision changes. A neurosurgical consultation was requested 07/04: MRI spine shows multiple bony lesions throughout the cervical, thoracic and lumbar spine without retropulsion or neural compromise. He continues to suffer severe pain. multiple myeloma suspected. 3.11. stable. No new problems Labs, Micro, & Vital Signs Results Date Time Temp Pulse Resp B/P Pulse Ox O2 Delivery O2 Flow Rate FiO2 07/08/16 16:00 96.9 79 20 174/76 96 07/08/16 12:00 97.8 73 18 174/73 96 07/08/16 08:00 95.6 66 16 174/78 97 07/08/16 04:44 18 07/08/16 00:00 97.4 74 20 162/74 96 07/07/16 21:04 18 07/07/16 20:00 97.8 69 20 162/73 96 07/08/16 07:00 Intake Total 2224 ml Output Total 1150 ml Balance 1074 ml Constitutional Vital Signs Date Time Temp Pulse Resp B/P Pulse Ox O2 Delivery O2 Flow Rate FiO2 07/08/16 16:00 96.9 79 20 174/76 96 07/08/16 12:00 97.8 73 18 174/73 96 07/08/16 08:00 95.6 66 16 174/78 97 07/08/16 04:44 18 07/08/16 00:00 97.4 74 20 162/74 96 07/07/16 21:04 18 07/07/16 20:00 97.8 69 20 162/73 96 07/08/16 07:00 Intake Total 2224 ml Output Total 1150 ml Balance 1074 ml Review of Systems/Exam Exam Mr. Quintanilla is alert, awake and oriented to time, place and person. Follows commands. Appears comfortable in bed. Cranial nerve examination: pupils to be equal, round, and reactive to light. Extra-ocular movements are intact. Facial motor normal and symmetrical. The uvula is midline and elevates symmetrically with the soft palate. Muscle strength is 5/5 in all muscle groups of both upper extremities including deltoid, biceps, triceps and apartment community manager. In the lower extremities, strength is 5/5 in both iliopsoas, quadriceps, hamstrings, plantar flexion, dorsiflexion, and extensor hallicus longus. Sensory examination is intact to light touch in both the upper and lower extremities, symmetrically. Deep tendon reflexes are 2+ in the biceps, triceps, and brachioradialis, bilaterally, in the upper extremities. In the lower extremities, the patellar and Achilles are 2+, bilaterally. There is a bilateral plantar flexion response. Hoffmanns sign is negative. There is no clonus Cerebellar examination is intact Medications Current Medications Current Medications Morphine Sulfate (Morphine Inj) 2 mg ONCE ONCE IV PUSH Last administered on 12:50; Start 07/03/16 at 12:30; Stop 07/03/16 at 12:32; Status DC Ondansetron HCl (Zofran Inj) 4 mg ONCE ONCE IV PUSH Last administered on 12:49; Start 07/03/16 at 12:30; Stop 07/03/16 at 12:32; Status DC Hydromorphone HCl (Dilaudid Pf Inj) 1 mg ONCE ONCE IV PUSH Last administered on 07/03/16 13:52; Start 07/03/16 at 13:45; Stop 07/03/16 at 13:46; Status DC IV Flush (NS Flush) 2 ml UNSCH PRN FLUSH FLUSH AFTER USING IV ACCESS; Start 07/03/16 at 15:45 IV Flush (NS Flush) 2 ml BID FLUSH Last administered on 07/07/16 20:04; Start 07/03/16 at 21:00 Acetaminophen (Tylenol) 650 mg Q4H PRN PO TEMP > 100.4 Last administered on 01:06; Start 07/03/16 at 15:45 Docusate Sodium (Colace) 100 mg Q12H PO Last administered on 07/06/16 15:28; Start 07/03/16 at 17:00; Stop 07/06/16 at 17:27; Status DC Magnesium Hydroxide (Milk Of Magnesia Liq) 30 ml Q12H PRN PO CONSTIPATION; Start 07/03/16 at 15:45 Sennosides (Senokot) 17.2 mg Q12H PRN PO CONSTIPATION; Start 07/03/16 at 15:45 Heparin Sodium (Porcine) (Heparin Inj) 5,000 units Q12H SQ Last administered on 07/08/16 17:34; Start 07/03/16 at 16:00 Naloxone HCl (Narcan Inj) 0.4 mg UNSCH PRN IV SEE LABEL COMMENTS; Start at 15:45 Iohexol (Omnipaque 350 Inj) 93 ml STK-MED ONCE IV Last administered on 16:45; Start 07/03/16 at 16:45; Stop 07/03/16 at 16:46; Status DC Morphine Sulfate (Morphine Inj) 2 mg Q3H PRN IV PUSH PAIN SCALE 4 TO 10 Last administered on 07/05/16 13:52; Start 07/03/16 at 18:15; Stop 07/05/16 at 14:30; Status DC Gadodiamide (Omniscan Pf Inj) 15 ml STK-MED ONCE IV Last administered on 11:07; Start 07/04/16 at 11:07; Stop 07/04/16 at 11:08; Status DC Acetaminophen (Tylenol) 650 mg ONCE ONCE PO Last administered on 07/04/16 13: 48; Start 07/04/16 at 13:45; Stop 07/04/16 at 13:46; Status DC Lidocaine/ Epinephrine 20 ml 20 ml STK-MED ONCE .ROUTE Last administered on 07/04 14:46; Start 07/04/16 at 14:46; Stop 07/04/16 at 14:47; Status DC Sodium Bicarbonate (Sodium Bicarbonate 8.4% Inj) 50 ml @ As Directed STK-MED ONCE .ROUTE Last administered on 07/04/16 14:46; Start 07/04/16 at 14:46; Stop 07/04/16 at 14:47; Status DC Fentanyl Citrate (fentaNYL INJ) 250 mcg STK-MED ONCE .ROUTE Last administered on 07/04/16 15:25; Start 07/04/16 at 15:25; Stop 07/04/16 at 15:26; Status DC Midazolam HCl 5 mg 5 mg STK-MED ONCE .ROUTE Last administered on 07/04/16 15:25 ; Start 07/04/16 at 15:25; Stop 07/04/16 at 15:26; Status DC Sodium Chloride (NS 1000 ml Inj) 1,000 ml @ 42 mls/hr [id number] IV Last administered on 07/08/16 17:35; Start 07/04/16 at 19:15 Morphine Sulfate (Morphine Inj) 4 mg Q2H PRN IV PUSH PAIN SCALE 6 TO 10 Last administered on 07/07/16 11:24; Start 07/05/16 at 16:15; Stop 07/07/16 at 13:49 ; Status DC Fentanyl (Duragesic 25 Mcg Patch.72 Hr) 1 patch Q3D TD Last administered on 16:30; Start 07/05/16 at 15:00; Stop 07/07/16 at 18:37; Status DC Miscellaneous Information 1 Q2D T-DERMAL ; Start 07/09/16 at 20:00 Morphine Sulfate (Morphine Inj) 2 mg Q2H PRN IV PUSH PAIN SCALE 2 TO 5; Start 07/05/16 at 14:30; Stop 07/07/16 at 13:49; Status DC Methylprednisolone Sodium Succinate (SoluMEDROL INJ) 125 mg ONCE ONCE IV PUSH Last administered on 07/05/16 17:05; Start 07/05/16 at 15:00; Stop 07/05/16 at 15: 01; Status DC Magnesium Citrate (Citroma Liq) 300 ml ONCE ONCE PO Last administered on 12:39; Start 07/06/16 at 12:30; Stop 07/06/16 at 12:33; Status DC Docusate Sodium (Colace) 100 mg TID PO Last administered on 07/08/16 17:34; Start 07/06/16 at 18:00 Psyllium Hydrophilic Mucilloid (Metamucil Smooth Texture Sf/ Gf Pkt) 1 pkt DAILY PO Last administered on 07/08/16 08:04; Start 07/06/16 at 17:30 Magnesium Citrate (Citroma Liq) 150 ml ONCE ONCE PO Last administered on 17:38; Start 07/06/16 at 17:30; Stop 07/06/16 at 17:31; Status DC Dexamethasone (Decadron) 20 mg ONCE ONCE PO Last administered on 07/07/16 14: 04; Start 07/07/16 at 13:30; Stop 07/07/16 at 13:31; Status DC Pantoprazole Sodium (Protonix) 20 mg DAILY PO Last administered on 07/08/16 08 :04; Start 07/08/16 at 09:00 Morphine Sulfate (Msir) 15 mg Q4H PRN PO breakthrough pain Last administered on 07/08/16 17:34; Start 07/07/16 at 15:00 Hydralazine HCl (Apresoline Inj) 20 mg Q4H PRN IV PUSH sys >170, or , ruby > 95 ; Start 07/07/16 at 16:00; Stop 07/07/16 at 16:38; Status DC Enalaprilat (Vasotec Inj) 2.5 mg Q6H PRN IV PUSH bp; Start 07/07/16 at 16:45 Fentanyl (Duragesic 25 Mcg Patch.72 Hr) 1 patch Q2D TD Last administered on 20:04; Start 07/07/16 at 20:00 Plan Plan Remarks 89 y/o male with multiple bony spine lesion, suspected metastatic malignant melanoma versus myeloma Attending Statement continue neuro checks in a serial fashion. Neurologically stable Respiratory. Continue pulmonary toilette, nasotracheal suction, and breathing treatments with nebulizers. PT and OT Nutrition. Continue Oral diet Renal. Continue to monitor closely urine output, BUN and creatinine Endocrine. Monitor serial Acu checks and SSI for tight control ID continue to monitor for signs of infection Continue Protonix for stress ulcer prophylaxis Continue Terrence hose and SCD's for DVT prophylaxis Elsy,Steve Palomo MD Jul 08, 2016 17:44
[2016-07-08 20:00] VITALS: BP 168/75; PULSE 76; RESP 18; TEMP 98.6; O2SAT 96
[2016-07-08 23:52] VITALS: BP 139/65; PULSE 61; RESP 18; TEMP 98.6; O2SAT 95
[2016-07-09] MEDS: HEPARIN SODIUM - SQ 10,000 UNITS/ML VIAL SQ SCH (03:59)
[2016-07-09] MEDS: MORPHINE SULFATE 15 MG TAB PO PRN (03:59)
[2016-07-09 08:00] VITALS: BP 177/77; PULSE 75; RESP 16; TEMP 97.4; O2SAT 98
[2016-07-09] MEDS: PSYLLIUM FIBER SF/GF 6 GM POWD PKT PO SCH (08:05)
[2016-07-09] MEDS: PANTOPRAZOLE SOD 20 MG DELAYED RELEASE TAB PO SCH (08:05)
[2016-07-09] MEDS: DOCUSATE SODIUM 100 MG CAP PO SCH (08:05)
[2016-07-09] MEDS: SODIUM CHLORIDE 0.9% FLUSH 5 ML FLUSH FLUSH SCH (08:05)
[2016-07-09] MEDS ORDERED: REMOVE OLD PATCH T-DERMAL SCH (20:00)
[2016-07-12 03:52] LABS: KAPPA/LAMBDA FREE 29.4 (0.26-1.65)
--- NOTE | 2016-07-16 14:52 | HHI.DS ---
Discharge Summary Admission Date Jul 03, 2016 at 15:37 Discharge Date: Jul 08, 2016 Admitting Diagnosis spine metastasis. Intractable pain (1) Multiple myeloma (2) Intractable pain (3) Bone metastasis (4) Anemia (5) Renal insufficiency (6) Spinal stenosis Procedures Patient status post bone marrow biopsy 07/03 Imaging Last Impressions Bone Biopsy CT 07/04/16 1007 Signed Impressions: Service Date/Time: Monday, July 04, 2016 15:36 - CONCLUSION: 1. Uncomplicated CT guided bone marrow aspirate. 2. Uncomplicated CT guided bone marrow biopsy. Shayne Mcintosh MD Entire Spine MRI 07/04/16 0000 Signed Impressions: Service Date/Time: Monday, July 04, 2016 10:34 - CONCLUSION: 1. Innumerable bone lesions throughout the cervical, thoracic, and lumbar spine. The largest occupies the T6 and T10 vertebral bodies. 2. The prior CT suggested a possible mass extending from T6 into the spinal canal. However, there is no spinal canal mass at this level or spinal canal stenosis. 3. There is moderate spinal canal stenosis at L3-L4 secondary to disc bulge and facet and ligamentum flavum hypertrophy. Shayne Mcintosh MD Chest CT 07/03/16 1536 Signed Impressions: Service Date/Time: Sunday, July 03, 2016 16:23 - CONCLUSION: 1. Please refer to thoracic spine CT report for description of the lytic lesions within the spine. 2. There is respiratory motion artifact but no acute pulmonary abnormality is identified and no pulmonary nodule is seen. 3. Nonacute findings include coronary artery calcification, severe atherosclerotic disease, and bilateral gynecomastia. Shayne Mcintosh MD Abdomen/Pelvis CT 07/03/16 1536 Signed Impressions: Service Date/Time: Sunday, July 03, 2016 16:23 - CONCLUSION: 1. No acute finding is identified in the abdomen or pelvis. Please refer to lumbar spine CT for description of the lumbar spine findings. 2. Nonacute findings include bilateral renal cysts, severe atherosclerotic disease, sigmoid diverticulosis, and prostatomegaly. Shayne Mcintosh MD Chest X-Ray 07/03/16 1508 Signed Impressions: Service Date/Time: Sunday, July 03, 2016 15:25 - CONCLUSION: No acute cardiopulmonary abnormality is identified. Shayne Mcintosh MD Thoracic Spine CT 07/03/16 1228 Signed Impressions: Service Date/Time: Sunday, July 03, 2016 13:10 - CONCLUSION: Undermineralized bones with lytic lesions at multiple levels, as above, with the largest in the T6 vertebral body extending into the right pedicle. The abnormal process has destroyed the posterior cortex of the vertebral body and there is a mass extending into the spinal canal at this level measuring 11 x 6 mm and likely causing severe spinal canal stenosis. Given the appearance and multiplicity of lesions multiple myeloma or metastatic disease are the most likely etiology. Shayne Mcintosh MD Lumbar Spine CT 07/03/16 1228 Signed Impressions: Service Date/Time: Sunday, July 03, 2016 13:10 - CONCLUSION: Multiple lytic lesions involving the lower thoracic spine and lumbar spine characteristic of either metastatic disease or multiple myeloma. No evidence of pathologic fracture. Degenerative disc disease with spondylosis. Jason Torres MD Bone Osseous Survey 07/03/16 0000 Signed Impressions: Service Date/Time: Sunday, July 03, 2016 18:14 - CONCLUSION: The known thoracic and lumbar spine lytic lesions are not well seen radiographically. Please refer to the CT report. There degenerative changes without definite lytic lesion of the cervical spine. There are 6 and 9 mm lesions suspected of the skull. Shayne Singh MD Hospital Course Pt. is an an 89-year-old man who reports no significant past history other than anxiety, BPH. Patient presented to the emergency room complaining of mid to low back pain for the last week, nor recent injury, no falls. Indicates the pain is sharp and localized to the mid to lower back area. Denies any paresthesias. No loss of bowel or bladder function. No fever, no chills. No other symptoms such as chest pain shortness of breath. No urinary symptoms. Indicates that pain became so severe that he was having difficulty getting up from bed. Patient indicates he is very healthy and was very active until now. Patient presented to the emergency room where he was evaluated and was noted with anemia which is a new finding. Denies any blood on the stool, weight loss. Denies any hematemesis. He was noted with some renal insufficiency which is also a new finding. He had imaging studies in the ER showing undermineralized bones with lytic lesions of multiple levels, the largest in the T6 vertebral body, extends into the right pedicle. There was a mass extending to the spinal canal at T6. The mass measures 11 x 6 mm. There was severe canal stenosis and there is a multiplicity of white thick lesions concerning for multiple myeloma versus metastatic cancer. CT scan of the chest shows respiratory motion artifact, no pulmonary nodules. CT scan of the abdomen showed bilateral renal cysts, atherosclerotic disease, sigmoid diverticulosis and prostate enlargement. Patient was evaluated by Dr. Razo. Bone marrow biopsy was ordered and was completed. Patient endorsed family history of cancer , one brother from colon cancer. Patient was admitted for further evaluation and treatment. (1) Intractable pain (2) multiple Myeloma (3) Anemia (4) Renal insufficiency (5) Spinal stenosis During the course of the hospitalization, the following took place: Patient was admitted, was put on appropriate pain management. Patient underwent bone marrow biopsy showing probable multiple myeloma Neurosurgery and oncology were consulted for evaluation Bone marrow biopsy show features consistent with multiple myeloma. Further workup completed per oncology included: --PSA WNL --B12 WNL --IGG elevated @ 6K Patient's were made for patient to follow up as outpatient with oncology. Patient was given dose of Decadron. Plan to start RVD treatment in clinic Neurosurgery input appreciated, reviewed MRI. Recommended nonoperative treatment. Continue with pain management . Fentanyl patch and inc. Morphine . Patient pleased with patch for pain. Stated that has helped his pain management more than anything. Anemia, probable to current disease process, stable. Did not require blood transfusion. Renal function was monitored, was noted with some renal insufficiency, remained stable. Was given IV fluids. Physical therapy was consulted to assist with mobility. Walker was recommended For DVT prophylaxis, SCDs/heparin Patient was complaining of constipation , positive results with mag citrate Patient was cleared for discharge Pain was well managed Case management was consulted for home health care Patient was discharged home in stable condition Pt Condition on Discharge: Stable Discharge Disposition: Disch w/ Home Health Serv Discharge Instructions DIET: Follow Instructions for: As Tolerated, No Restrictions Activities you can perform: See Additionl Instruction Follow up Referrals: Oncology PCP Follow-up New Medications: Pantoprazole (Protonix) 20 Mg Tab 20 MG PO DAILY gerd #30 Ref 0 TAB Continued Medications: Citalopram (Citalopram) 20 Mg Tab 20 MG PO DAILY Control Depression #30 Ref 0 TAB Finasteride (Finasteride) 5 Mg Tab 5 MG PO DAILY Do not crush. Manage Prostate Problems #30 Ref 0 TAB Delilah SinghP Jul 16, 2016 14:52
== END 2016-07-09 11:58 | disposition home health service (06) | DRG 841 ==
LOC: PHED 11:10 → PHEDA 15:37 → N07B 20:42
PROVIDERS: ADMIT Specialist; ATTEND Specialist
PROC: 07DR3ZX Extraction of Iliac Bone Marrow, Percutaneous Approach, Diagnostic (ICD-10-PCS; principal; 2016-07-04)
DX: C90.00 Multiple myeloma not having achieved remission (principal); N17.9 Acute kidney failure, unspecified; D63.0 Anemia in neoplastic disease; M48.05 Spinal stenosis, thoracolumbar region; G89.3 Neoplasm related pain (acute) (chronic); N40.0 Benign prostatic hyperplasia without lower urinary tract symptoms; K59.00 Constipation, unspecified; Z88.0 Allergy status to penicillin
CPT/HCPCS: 38221; 71010; 71260; 72128; 72131; 72156; 72158; 74177; 77012; 77075; 80048; 80053; 81001; 82306; 82607; 82784; 83883; 84153; 84165; 85025; 85027; 85097; 85610; 85652; 85730; 86335; 88184; 88185; 88237; 88264; 88280; 88305; 88311; 88313; 96374; 96375; 99152; 99153; 99222; A9579; C1830; G0364; J1170; J1644; J2250; J2270; J2405; J2930; J3010; J7030; J8540; Q9967

== ENCOUNTER 2016-07-13 14:35 | Emergency (ER) | payer MEDICARE ==
[~2016-07-13] VITALS: Ht 177.8 cm; Wt 82.0 kg
[~2016-07-13 14:35] MED LIST: CITA20TA4 PO; FENT25T TD; FINA5TAB2 PO; MISC-163; MISC-274; PANT20 PO
[2016-07-13 14:42] VITALS: BP 168/70; PULSE 72; RESP 18; TEMP 98.4; O2SAT 94
[2016-07-13] MEDS ORDERED: MORP1TAB25 PO (15:26)
--- NOTE | 2016-07-13 15:27 | PD ---
HPI Chief Complaint: Pain: Acute or Chronic Time Seen by Provider: 15:08 Travel History International Travel<30 days: No Contact w/Intl Traveler<30days: No Traveled to known affect area: No History of Present Illness HPI 89-year-old male complains of back pain. Patient was recently diagnosed with multiple myeloma. Patient has been seen by neurosurgeon and learning coordinator oncologist. Patient was admitted and discharged recently on fentanyl patch and morphine for pain. Patient states that he ran out of morphine since last night. Patient still has vaginal patch on. Patient denies any headache. Patient denies any shortness of breath. Patient states that he has the same chest pain that he has in the past secondary to multiple myeloma. Patient denies abdominal pain. Patient denies any nausea vomiting. Patient denies any fever chills. Patient denies any focal weakness or numbness of the extremity. PFSH Past Medical History Anxiety: Yes Cancer: Yes (SPINE) Cardiovascular Problems: No Diminished Hearing: No Endocrine: No Gastrointestinal Disorders: No Genitourinary: Yes (prostate ) Immune Disorder: No Implanted Vascular Access Dvce: No Musculoskeletal: No Neurologic: No Respiratory: No Tetanus Vaccination: Unknown Past Surgical History Abdominal Surgery: Yes (right ingunial hernia) Other Surgery: Yes Social History Alcohol Use: Yes (RARE) Tobacco Use: No Substance Use: No Allergies-Medications (Allergen,Severity, Reaction): Coded Allergies: Penicillin (Verified Allergy, Unknown, rash, 07/13/16) Reported Meds & Prescriptions Reported Meds & Active Scripts Active Morphine ER (Morphine Sulfate) 30 Mg Tab 30 Mg PO Q6HR Protonix (Pantoprazole Sodium) 20 Mg Tab 20 Mg PO DAILY Duragesic Patch 72 HR (Fentanyl) 25 Mcg/Hr Patch 1 Patch TD Q2D 7 Days Reported Citalopram (Citalopram Hydrobromide) 20 Mg Tab 20 Mg PO DAILY Finasteride 5 Mg Tab 5 Mg PO DAILY Do not crush. Review of Systems General / Constitutional: No: Fever Eyes: No: Visual changes HENT: No: Headaches Cardiovascular: No: Chest Pain or Discomfort Respiratory: No: Shortness of Breath Gastrointestinal: No: Abdominal Pain Genitourinary: No: Dysuria Musculoskeletal: No: Pain Skin: No Rash Neurologic: No: Weakness Psychiatric: No: Depression Endocrine: No: Polydipsia Hematologic/Lymphatic: No: Easy Bruising Physical Exam Narrative GENERAL: Well-nourished, well-developed patient. SKIN: Warm and dry. HEAD: Normocephalic. EYES: No scleral icterus. No injection or drainage. NECK: Supple, trachea midline. No JVD or lymphadenopathy. CARDIOVASCULAR: Regular rate and rhythm without murmurs, gallops, or rubs. RESPIRATORY: Breath sounds equal bilaterally. No accessory muscle use. GASTROINTESTINAL: Abdomen soft, non-tender, nondistended. MUSCULOSKELETAL: No cyanosis, or edema. BACK: Moderate tenderness on palpation low thoracic upper lumbar area, without obvious deformity. No CVA tenderness. Neurologic exam normal. Data Data Last Documented VS Vital Signs Date Time Temp Pulse Resp B/P Pulse Ox O2 Delivery O2 Flow Rate FiO2 07/13/16 14:42 98.4 72 18 168/70 94 Orders Hydromorphone Pf Inj (Dilaudid Pf Inj) (07/13/16 15:30) Ondansetron Inj (Zofran Inj) (07/13/16 15:30) [facility] Medical Decision Making Medical Screen Exam Complete: Yes Emergency Medical Condition: Yes Medical Record Reviewed: Yes Differential Diagnosis Differential diagnosis including acute exacerbation of back pain, fracture, neurologic deficit. Narrative Course 89-year-old male with acute exacerbation of back pain. History of multiple myeloma. Patient has been seen by neurosurgeon and learning coordinator oncologist. Dilaudid 1 mg IV given. Zofran 4 mg IV given. Diagnosis Primary Impression: Multiple myeloma Qualified Code: C90.00 - Multiple myeloma, remission status unspecified Additional Impression: Back pain Qualified Code: M54.9 - Chronic midline back pain, unspecified back location Patient Instructions: General Instructions Additional Instructions: Continue with pain medications. Follow-up with personal physician. Return if worse. Take stool softener with pain medication. Med/Other Pt SpecificInfo: Prescription(s) given Scripts Fentanyl Patch 72 HR (Duragesic Patch 72 HR)25 Mcg/Hr Patch1 Patch TD Q2D #10 PATCH Ref 0 Prov:Cheikh Duff MD 07/13/16 Morphine ER 30 Mg Tab30 Mg PO Q6HR #30 TAB Ref 0 Prov:Cheikh Duff MD 07/13/16 Disposition: 01 DISCHARGE HOME Condition: Stable Cheikh Duff MD Jul 13, 2016 15:26
[2016-07-13] MEDS ORDERED: HYDROmorphone HCL PF 1 MG/ML VIAL IV PUSH ONE (15:30)
[2016-07-13] MEDS ORDERED: ONDANSETRON HCL 4 MG/2 ML VIAL IV PUSH ONE (15:30)
[2016-07-13] MEDS ORDERED: FENT25T TD (17:07)
[2016-07-13 18:10] VITALS: BP 137/71; PULSE 70; RESP 18; O2SAT 96
== END 2016-07-13 19:38 | disposition home or self-care (01) ==
LOC: NEPA 14:35
DX: C90.00 Multiple myeloma not having achieved remission (principal); M54.9 Dorsalgia, unspecified; R07.9 Chest pain, unspecified
CPT/HCPCS: 96374; 96375; 99283; J1170; J2405

== ENCOUNTER 2016-07-20 08:54 | Inpatient (IN) | payer MEDICARE ==
[2016-07-20] VITALS (7 sets, daily range): BP systolic 112–134; BP diastolic 55–64; PULSE 59–71; RESP 16–20; TEMP 95.6–97.9; O2SAT 95–97
[~2016-07-20] VITALS: Ht 177.8 cm; Wt 82.8 kg
[~2016-07-20 08:54] MED LIST changes: -MISC-163; -MISC-274; +MORP1TAB25 PO
--- NOTE | 2016-07-20 09:07 | PD ---
HPI Chief Complaint: Fall Time Seen by Provider: 09:07 Travel History International Travel<30 days: No Contact w/Intl Traveler<30days: No Traveled to known affect area: No History of Present Illness HPI 89-year-old male came to the emergency room with history of fall and right hip pain. He was brought in by EMS. Patient does not speak Indonesian and his who speaks minimal Indonesian is doing the translation. Patient is awake. He has history of some tumor in his spine. He is mostly on pain medications. His right leg was shorter than the left and he would be in severe pain on slightest movement. Vital signs were stable otherwise. Patient is also complaining of left sided chest pain. [facility] Past Medical History Narrative Medical List of his past medical, surgical, social and family history was reviewed from the nursing note. Anxiety: Yes Cancer: Yes (SPINE) Cardiovascular Problems: No Diminished Hearing: No Endocrine: No Gastrointestinal Disorders: No Genitourinary: Yes (prostate ) Immune Disorder: No Implanted Vascular Access Dvce: No Musculoskeletal: No Neurologic: No Respiratory: No Past Surgical History Abdominal Surgery: Yes (right ingunial hernia) Other Surgery: Yes Social History Alcohol Use: Yes (RARE) Tobacco Use: No Substance Use: No Allergies-Medications (Allergen,Severity, Reaction): Coded Allergies: Penicillin (Verified Allergy, Unknown, rash, 07/21/16) Comments List of his allergies reviewed from the nursing note. Reported Meds & Prescriptions Reported Meds & Active Scripts Active Protonix (Pantoprazole Sodium) 20 Mg Tab 20 Mg PO DAILY Reported Citalopram (Citalopram Hydrobromide) 20 Mg Tab 20 Mg PO DAILY Finasteride 5 Mg Tab 5 Mg PO DAILY Do not crush. Narrative Medication List of his home medications reviewed from the nursing note. Review of Systems Except as stated in HPI: all other systems reviewed are Neg Physical Exam Narrative GENERAL: Awake, alert, moderate distress SKIN: Warm and dry. HEAD: Atraumatic. Normocephalic. EYES: Pupils equal and round. No scleral icterus. No injection or drainage. ENT: No nasal bleeding or discharge. Mucous membranes pink and moist. NECK: Trachea midline. No JVD. CARDIOVASCULAR: Regular rate and rhythm. No murmur appreciated. RESPIRATORY: No accessory muscle use. Clear to auscultation. Breath sounds equal bilaterally. GASTROINTESTINAL: Abdomen soft, non-tender, nondistended. Hepatic and splenic margins not palpable. MUSCULOSKELETAL: Right leg shorter than the left. Decreased range of motion at the right hip due to pain. No clubbing. No cyanosis. No edema. NEUROLOGICAL: Awake and alert. No obvious cranial nerve deficits. Motor grossly within normal limits. Normal speech. PSYCHIATRIC: Appropriate mood and affect; insight and judgment normal. Data Data Last Documented VS Orders Electrocardiogram (07/20/16 09:15) Basic Metabolic Panel (Bmp) (07/20/16 09:15) Complete Blood Count With Diff (07/20/16 09:15) Prothrombin Time / Inr (Pt) (07/20/16 09:15) Troponin I (07/20/16 09:15) Chest, Single Ap (07/20/16 09:15) Ecg Monitoring (07/20/16 09:15) Bilateral Bp Monitoring (07/20/16 09:15) Iv Access Insert/Monitor (07/20/16 09:15) Oximetry (07/20/16 09:15) Oxygen Administration (07/20/16 09:15) Sodium Chloride 0.9% Flush (Ns Flush) (07/20/16 09:15) Hip, Uni(Ap&Lat) W Ap Pelvis (07/20/16 ) Ct Thorax/ Chest Wo Iv Contras (07/20/16 ) Ct Abd/Pel W/O Iv Contrast (07/20/16 ) Sodium Chlor 0.9% 1000 Ml Inj (Ns 1000 M (07/20/16 09:15) Morphine Inj (Morphine Inj) (07/20/16 09:15) Blood Culture (07/20/16 10:09) Ceftriaxone Inj (Rocephin Inj) (07/20/16 10:15) Azithromycin Inj (Zithromax Inj) (07/20/16 10:15) Admit Order (Ed Use Only) (07/20/16 10:53) Labs MDM Medical Decision Making Medical Screen Exam Complete: Yes Emergency Medical Condition: Yes Medical Record Reviewed: Yes Interpretation(s) Twelve-lead EKG was reviewed by me. Normal sinus rhythm, normal axis, diffuse anterior lateral T wave inversion, first-degree AV block. Heart rate of 67 bpm. Differential Diagnosis Hip fracture, rib fractures, intrathoracic injury, intra-abdominal injury, thoracic bone fracture, lumbar fracture Narrative Course 11 AM x-ray was suggestive of right intertrochanteric fracture. Patient does have multiple bony lesions from probably either metastases or multiple myeloma. I spoke with the orthopedist Dr. Moreno and he will operate on the patient sometime later today. Patient will be nothing by mouth. I admitted the patient to the hospitalist. I spoke with the son who came later and informed him and the about patient's condition and diagnosis. Procedures EKG Prior to Arrival: No Physician Communication Physician Communication Dr. Moreno Diagnosis Primary Impression: Intertrochanteric fracture of right hip Qualified Code: S72.141A - Intertrochanteric fracture of right hip, closed, initial encounter Additional Impressions: Renal insufficiency possible multiple myeloma Admitting Information Admitting Physician Requests: Admit Scripts Azithromycin (Zithromax)500 Mg Sdh864 Mg PO DAILY #5 TAB Ref 0 Prov:Deep Lizarraga MD 07/23/16 Oxycodone-Acetaminophen 5-325 mg Tab1 Tab PO Q4H PRN (PAIN LESS THAN 5 ON SCALE ) #30 TAB Prov:Deep Lizarraga MD 07/23/16 Ipratropium-Albuterol Neb (Duoneb)0.5-2.5 Mg/3 Ml Neb1 Ampule NEB QID NEB PRN ( WHEEZING) #28 ML Prov:Deep Lizarraga MD 07/23/16 Enoxaparin Inj (Lovenox Inj)30 Mg/0.3 Ml Syr30 Mg SQ Q24H #28 INJECTION Prov:Deep Lizarraga MD 07/23/16 Fentanyl Patch 72 HR (Duragesic Patch 72 HR)25 Mcg/Hr Patch1 Patch TD Q2D #10 PATCH Ref 0 Prov:Deep Lizarraga MD 07/23/16 Morphine ER 30 Mg Tab30 Mg PO Q6HR #30 TAB Ref 0 Prov:Deep Lizarraga MD 07/23/16 Neva Rubin MD Jul 20, 2016 09:07 Eosinophils # (Auto) 0.0 TH/MM3 Basophils # (Auto) 0.0 TH/MM3 CBC Comment DIFF FINAL Differential Comment Prothrombin Time 12.4 SEC Prothromb Time International 1.1 RATIO Ratio Sodium Level 138 MEQ/L Potassium Level 4.9 MEQ/L Chloride Level 107 MEQ/L Carbon Dioxide Level 28.9 MEQ/L Anion Gap 2 MEQ/L Blood Urea Nitrogen 66 MG/DL Creatinine 2.63 MG/DL Estimat Glomerular Filtration 23 ML/MIN Rate Random Glucose 111 MG/DL Calcium Level 9.4 MG/DL Troponin I 0.02 NG/ML [facility] Medical Decision Making Medical Screen Exam Complete: Yes Emergency Medical Condition: Yes Medical Record Reviewed: Yes Interpretation(s) Twelve-lead EKG was reviewed by me. Normal sinus rhythm, normal axis, diffuse anterior lateral T wave inversion, first-degree AV block. Heart rate of 67 bpm. Differential Diagnosis Hip fracture, rib fractures, intrathoracic injury, intra-abdominal injury, thoracic bone fracture, lumbar fracture Narrative Course 11 AM x-ray was suggestive off for right intertrochanteric fracture. Patient does have multiple bony lesions from probably either metastases or multiple myeloma. I spoke with the orthopedist Dr. Moreno and he will operate on the patient sometime later today. Patient will be nothing by mouth. I admitted the patient to the hospitalist. I spoke with the son who came later and informed him and the about patient's condition and diagnosis. Procedures EKG Prior to Arrival: No Physician Communication Physician Communication Dr. Moreno Diagnosis Primary Impression: Intertrochanteric fracture of right hip Qualified Code: S72.141A - Intertrochanteric fracture of right hip, closed, initial encounter Additional Impressions: Renal insufficiency possible multiple myeloma Admitting Information Admitting Physician Requests: Admit Neva Rubin MD Jul 20, 2016 09:07
[2016-07-20] MEDS ORDERED: MORPHINE SULFATE 4 MG/ML INJ IV PUSH ONE ×2 (09:15→12:00)
[2016-07-20] MEDS ORDERED: SODIUM CHLOR 0.9% 1000 ML INJ 1,000 ML IV ONE ×2 (09:15→11:45)
[2016-07-20] MEDS ORDERED: SODIUM CHLORIDE 0.9% FLUSH 10 ML FLUSH IVF PRN (09:15)
--- NOTE | 2016-07-20 09:57 | RADRPT ---
EXAM DATE/TIME: 07/20/2016 09:38 [facility] COMPARISON: No previous studies available for comparison. INDICATIONS : Right hip pain after fall. MEDICAL HISTORY : None. SURGICAL HISTORY : None. ENCOUNTER: Initial ACUITY: 1 day PAIN SCORE: 10/10 LOCATION: Right hip. FINDINGS: Examination of the right hip was performed with AP Pelvis. There is a comminuted intertrochanteric f racture without diastases and displacement of the fracture fragments. The hip joint itself remains in tact. There is some degenerative spurring of the lumbar spine. CONCLUSION: Comminuted intratrochanteric fracture on the right with diastases/displacement of the fracture f ragments. Ananda Way MD on July 20, 2016 at 9:47 Board Certified Radiologist. This report was verified electronically.
--- NOTE | 2016-07-20 09:59 | RADRPT ---
EXAM DATE/TIME: 07/20/2016 09:38 [facility] COMPARISON: CHEST SINGLE AP, July 03, 2016, 15:25. INDICATIONS : Chest pain after fall. MEDICAL HISTORY : None. SURGICAL HISTORY : None. ENCOUNTER: Initial ACUITY: 1 day PAIN SCORE: 110 LOCATION: Bilateral chest FINDINGS: Diffuse infiltration noted bilaterally suggesting moderate pulmonary edema versus pneumonia. Clinica l correlation is recommended. The heart is stable. There is mild elevation of the right hemidiaphra gm. CONCLUSION: Diffuse infiltration consistent with moderate pulmonary edema versus pneumonia. Clinical correlation is recommended. Tano Jones MD on July 20, 2016 at 9:48 Board Certified Radiologist. This report was verified electronically.
[2016-07-20 10:14] LABS: AUTOMATED NEUTROPHIL # 7.9 TH/MM3 (1.8-7.7); BASOPHIL % 0.3 % (0.0-2.0); EOSINOPHIL % 0.1 % (0.0-4.0); HEMATOCRIT 28.6 % (39.0-51.0); HEMO FLAGS DIFF FINAL; LYMPH % 17.1 % (9.0-44.0); LYMPHOCYTE # 1.7 TH/MM3 (1.0-4.8); MEAN CELL VOLUME 102.9 FL (80.0-100.0); MEAN CORPUSCULAR HEMOGLOBIN 35.1 PG (27.0-34.0); MEAN CORPUSCULAR HGB CONC 34.1 % (32.0-36.0); MONO % 4.8 % (0.0-8.0); NEUT % 77.7 % (16.0-70.0); PLATELET COUNT 304 TH/MM3 (150-450); RED BLOOD COUNT 2.78 MIL/MM3 (4.50-5.90); RED CELL DISTRIBUTION WIDTH 14.8 % (11.6-17.2); WHITE BLOOD COUNT 10.2 TH/MM3 (4.0-11.0)
[2016-07-20] MEDS ORDERED: cefTRIAXone INJ 1,000 MG in SODIUM CHLORIDE 0.9% INJ 100 ML IV ONE (10:15)
[2016-07-20] MEDS ORDERED: AZITHROMYCIN INJ 500 MG in SODIUM CHLOR 0.9% 250 ML INJ 250 ML IV ONE (10:15)
--- NOTE | 2016-07-20 10:27 | RADRPT ---
EXAM DATE/TIME: 07/20/2016 09:42 [facility] COMPARISON: CT THORACIC SPINE W/O CONTRAST, July 03, 2016, 13:10. INDICATIONS : Trauma, fall. Right hip pain. ORAL CONTRAST: No oral contrast ingested. RADIATION DOSE: 5.27 CTDIvol (mGy) ; Combined studies - Thorax/Abdomen/Pelvis MEDICAL HISTORY : Hernia, inguinal. Spinal cancer. SURGICAL HISTORY : Appendectomy. ENCOUNTER: Initial ACUITY: 1 day PAIN SCALE: 8/10 LOCATION: Right pelvis TECHNIQUE: Volumetric scanning of the abdomen and pelvis was performed. Using automated exposure control and ad justment of the mA and/or kV according to patient size, radiation dose was kept as low as reasonably achievable to obtain optimal diagnostic quality images. FINDINGS: There is evidence of an acute comminuted intertrochanteric fracture of the right proximal femur. The re is a focal lytic destructive lesion involving the superior medial aspect of the right iliac crest raising the possibility of metastatic disease or myeloma. Degenerative changes and scoliosis of the thoracolumbar spine are noted. Evaluation of the solid organs of the abdomen is limited by the lack of intravenous contrast. There is a stable subcentimeter hepatic cyst. There are scattered bilateral renal cysts. No bowel obstruct ion is noted. Uncomplicated sigmoid diverticulosis is noted. No acute diverticulitis is noted. The prostate gland is markedly enlarged. The urinary bladder is nondistended and its wall is diffusely thickened. No significant lymphadenopathy is noted. The abdominal aorta is calcified but is not ane urysmally dilated. Pleural thickening is noted posteriorly within the visualized lung bases. Focal scarring and atelect asis is noted within the right posterior lung base. The heart is enlarged. Coronary artery calcific ations are noted. Lytic lesions scattered throughout the thoracic spine which have been described on previous examinati on and are consistent with metastatic disease or multiple myeloma. CONCLUSION: 1. Focal lytic lesion involving the superior medal aspect of the right iliac crest raising the possi bility of metastatic disease or myeloma. 2. Acute comminuted intertrochanteric fracture of the right proximal femur. 3. Markedly enlarged prostate gland. 4. Uncomplicated sigmoid diverticulosis. 5. Stable tiny subcentimeter hepatic cyst. 6. Cardiomegaly and coronary artery calcifications. 7. Multiple bilateral renal cysts. 8. Degenerative changes and scoliosis of the thoracolumbar spine. 9. Right lower lobe atelectasis and/or scarring. 10. Posterior bibasilar pleural thickening. 11. Lytic lesions scattered throughout the thoracic spine at multiple levels which have been describe d on previous examination consistent with multiple myeloma or metastatic disease. Tano Jones MD on July 20, 2016 at 9:55 Board Certified Radiologist. This report was verified electronically.
--- NOTE | 2016-07-20 10:36 | RADRPT ---
EXAM DATE/TIME: 07/20/2016 09:39 [place] COMPARISON: CT ABDOMEN & PELVIS W CONTRAST, July 03, 2016, 16:23. INDICATIONS : Trauma, fall. Left rib pain. RADIATION DOSE: 5.27 CTDIvol (mGy) ; Combined studies - Thorax/Abdomen/Pelvis MEDICAL HISTORY : Hernia, inguinal. Spinal cancer. SURGICAL HISTORY : Appendectomy. ENCOUNTER: Initial ACUITY: 1 day PAIN SCALE: 7/10 LOCATION: Left chest TECHNIQUE: Volumetric scanning of the chest was performed. Using automated exposure control and adjustment of t he mA and/or kV according to patient size, radiation dose was kept as low as reasonably achievable to obtain optimal diagnostic quality images. FINDINGS: There are lytic destructive lesions throughout the thoracic spine which have been described in detail on recent CT of the thoracic spine consistent with multiple myeloma or metastatic disease. Focal atelectasis and/ or scarring is noted within the lower lobe. Minimal posterior pleural thickening is noted within the lung bases lenard aterally. The heart is enlarged. Coronary artery calcifications are noted. No mediastinal, hilar or axillary lymp hadenopathy is noted. No pulmonary nodule or mass is noted. No pleural effusion is noted. No pulmonary edema is n oted. There is a focal lytic lesion involving the posterior aspect of the left fifth rib again suggestive o f metastatic disease or multiple myeloma. No rib fracture is noted. CONCLUSION: 1. Multiple lytic destructive lesions throughout the thoracic spine which have been described in det ail in the recent CT of the thoracic spine consistent with multiple myeloma or metastatic disease. 2. Cardiomegaly and coronary artery calcifications. 3. Focal atelectasis and/or scarring within the right lower lobe. 4. Posterior pleural thickening within the lung bases bilaterally. 5. Degenerative changes and scoliosis of the thoracic spine. 6. Focal lytic lesion involving the posterior aspect of the left fifth rib again consistent with met astatic disease or multiple myeloma. No left rib fracture is noted. Tano Jones MD on July 20, 2016 at 10:06 Board Certified Radiologist. This report was verified electronically.
[2016-07-20 11:17] LABS: INTERNATIONAL NORMALIZED RATIO 1.1 RATIO; PROTHROMBIN TIME - PATIENT 12.4 SEC (9.8-11.6)
[2016-07-20 11:26] LABS: BICARBONATE 28.9 MEQ/L (21.0-32.0); POTASSIUM 4.9 MEQ/L (3.5-5.1)
[2016-07-20] MEDS ORDERED: ONDANSETRON HCL 4 MG/2 ML VIAL IV PUSH ONE (12:00)
[2016-07-20] MEDS ORDERED: PHENYLEPH/NS 1000 MCG/10 ML SYR IV ONE (12:00)
[2016-07-20] MEDS ORDERED: LACTATED RINGER'S 1000 ML INJ 1,000 ML IV ONE (12:00)
[2016-07-20] MEDS ORDERED: ePHEDrine/NS 25 MG/5 ML SYR IV ONE (12:00)
[2016-07-20] MEDS ORDERED: NEOSTIGMINE 3 MG/3 ML SYR IV ONE (12:00)
[2016-07-20] MEDS ORDERED: PROPOFOL 200 MG/20 ML AMP IV ONE (12:00)
[2016-07-20] MEDS ORDERED: SODIUM CHLOR 0.9% 1000 ML INJ 1,000 ML IV SCH (12:29)
[2016-07-20] MEDS ORDERED: MORPHINE SULFATE 4 MG/ML INJ IV PUSH PRN (13:00)
[2016-07-20] MEDS ORDERED: ACETAMINOPHEN 325 MG TAB PO PRN ×2 (13:00→21:00)
[2016-07-20] MEDS ORDERED: NALOXONE HCL 0.4 MG/ML AMP IV PRN (13:00)
[2016-07-20] MEDS ORDERED: SODIUM CHLORIDE 0.9% FLUSH 10 ML FLUSH IV FLUSH PRN ×2 (13:00→21:00)
[2016-07-20] MEDS ORDERED: ONDANSETRON HCL 4 MG/2 ML VIAL IVP PRN ×2 (13:00→21:00)
[2016-07-20] MEDS: SODIUM CHLOR 0.9% 1000 ML INJ 1,000 ML IV SCH (13:27)
--- NOTE | 2016-07-20 13:55 | EKG ---
Date Performed: 07/20/2016 Time Performed: 10:11:20 PTAGE: 89 years EKG: Sinus rhythm WITH FIRST DEGREE AV BLOCK MODERATE T-WAVE ABNORMALITY, CONSIDER ANTERIOR ISCHEMIA ABNORMAL ECG Comp ared to the PREVIOUS TRACING T wave abnormalities are more prominent, consider ischemia PREVIOUS TRA CIN01/18/1994 08.35 DOCTOR: Daljit Cool Interpretating Date/Time 07/20/2016 13:55:33
--- NOTE | 2016-07-20 14:25 | HHI.HP ---
HPI Service [facility] Primary Care Physician Leiv Landin M.D. Admission Diagnosis hip fracture, multiple myeloma Diagnoses: Chief Complaint: FALL AND RIGHT HIP/LEG PAIN (Delilah SinghChucky CHARLES) Travel History International Travel<30 Days: No Contact w/Intl Traveler <30 Da: No Traveled to Known Affected Are: No (Delilah Singh) History of Present Illness Pt. is an an 89-year-old man with past medical history of enlarged prostate, hypertension. Patient was recently diagnosed with multiple myeloma on July 03 after he was admitted with intractable back pain. He was discharged and was to follow-up with Dr. Razo as well as Dr. Loya to start chemotherapy and palliative radiation radiation. He's had intractable pain and family decided to enroll him in hospice for symptom management. He has not been able to follow up with either Dr. Razo or Dr. Loya. According to the family, patient was having a good day yesterday, had been started on steroids in addition to fentanyl and morphine in this had been managing his pain very well. He was eating more and had been more active than usual. Apparently while they were sleeping, he got out of bed and they heard the patient fall. Patient is in pain at this time, his very anxious and information is provided by the patient's son and . I'm able to communicate with him in Japanese. He is complaining of abdominal pain as well as right leg pain. Patient was examined in the emergency room, imaging studies were completed. Last Impressions Chest X-Ray 07/20/1615 Signed Impressions: Service Date/Time: June 09:38 - CONCLUSION: Diffuse infiltration consistent with moderate pulmonary edema versus pneumonia. Clinical correlation is recommended. Tano Jones MD Hip and Pelvis X-Ray 07/20/16 Signed Impressions: Service Date/Time: June 09:38 - CONCLUSION: Comminuted intratrochanteric fracture on the right with diastases/displacement of the fracture fragments. Ananda Way MD Chest CT 07/20/16 Signed Impressions: Service Date/Time: June 09:39 - CONCLUSION: 1. Multiple lytic destructive lesions throughout the thoracic spine which have been described in detail in the recent CT of the thoracic spine consistent with multiple myeloma or metastatic disease. 2. Cardiomegaly and coronary artery calcifications. 3. Focal atelectasis and/or scarring within the right lower lobe. 4. Posterior pleural thickening within the lung bases bilaterally. 5. Degenerative changes and scoliosis of the thoracic spine. 6. Focal lytic lesion involving the posterior aspect of the left fifth rib again consistent with metastatic disease or multiple myeloma. No left rib fracture is noted. Tano Jones MD Abdomen/Pelvis CT 07/20/16 0000 Signed Impressions: Service Date/Time: June 09:42 - CONCLUSION: 1. Focal lytic lesion involving the superior medal aspect of the right iliac crest raising the possibility of metastatic disease or myeloma. 2. Acute comminuted intertrochanteric fracture of the right proximal femur. 3. Markedly enlarged prostate gland. 4. Uncomplicated sigmoid diverticulosis. 5. Stable tiny subcentimeter hepatic cyst. 6. Cardiomegaly and coronary artery calcifications. 7. Multiple bilateral renal cysts. 8. Degenerative changes and scoliosis of the thoracolumbar spine. 9. Right lower lobe atelectasis and/or scarring. 10. Posterior bibasilar pleural thickening. 11. Lytic lesions scattered throughout the thoracic spine at multiple levels which have been described on previous examination consistent with multiple myeloma or metastatic disease. Tano Jones MD He was found with right intertrochanteric femur fracture. Dr. Fox was contacted and the plan is for surgical repair later this afternoon. Patient's and son are in agreement with surgery. They have rescinded hospice services but do plan to enroll him after patient undergoes surgery and possibly rehabilitation. Additionally, patient was found with possible pneumonia. He has been empirically treated with antibiotics. There is no recent report of fever or chills. Hasn't been coughing, no sputum production. He does have renal insufficiency and his creatinine is slightly increased compared to previous values. Patient is admitted for further evaluation and treatment. ( Delilah Singh) Review of Systems ROS Limitations: Clinical Condition Other c/o back pain, abd. pain, right leg pain (Delilah Singh) Past Family Social History Past Medical History Recent diagnosis of multiple myeloma 07/04/16 Anxiety. Benign prostatic hypertrophy. Renal insufficiency Past Surgical History Appendectomy Right inguinal hernia repair. Reported Medications Reported Meds & Active Scripts Active Duragesic Patch 72 HR (Fentanyl) 25 Mcg/Hr Patch 1 Patch TD Q2D Morphine ER (Morphine Sulfate) 30 Mg Tab 30 Mg PO Q6HR Protonix (Pantoprazole Sodium) 20 Mg Tab 20 Mg PO DAILY Reported Citalopram (Citalopram Hydrobromide) 20 Mg Tab 20 Mg PO DAILY Finasteride 5 Mg Tab 5 Mg PO DAILY Do not crush. (Delilah Singh) Allergies: Coded Allergies: Penicillin (Verified Allergy, Unknown, rash, 07/20/16) Active Ordered Medications Inpatient Medications Acetaminophen (Tylenol) 650 mg Q4H PRN PO TEMP > 100.4; Start 07/20/16 at 13:00 Azithromycin/ Sodium Chloride (Zithromax Inj/ NS 250 ml Inj) 250 ml @ 250 mls/ hr ONCE ONCE IV Last administered on 07/20/16 11:30; Start 07/20/16 at 10:15 ; Stop 07/20/16 at 11:14; Status DC Ceftriaxone Sodium 1000 mg/ Sodium Chloride 100 ml @ 200 mls/hr ONCE ONCE IV Last administered on 07/20/16 10:44; Start 07/20/16 at 10:15; Stop 07/20/16 at 10:44; Status DC Citalopram Hydrobromide (CeleXA) 20 mg DAILY PO ; Start 07/21/16 at 09:00 Fentanyl (Duragesic 25 Mcg Patch.72 Hr) 1 patch Q3D TD ; Start 07/20/16 at 15: 00 Finasteride (Proscar) 5 mg DAILY PO ; Start 07/21/16 at 09:00 Miscellaneous Information 1 Q3D TD ; Start 07/23/16 at 15:00 Morphine Sulfate (Morphine Inj) 4 mg Q3H PRN IV PUSH PAIN SCALE 6 TO 10 Last administered on 07/20/16 14:13; Start 07/20/16 at 13:00 Morphine Sulfate (Oramorph Sr) 30 mg Q6HR PO ; Start 07/20/16 at 18:00 Morphine Sulfate 4 mg 4 mg ONCE ONCE IV PUSH Last administered on 07/20/16 12 :01; Start 07/20/16 at 12:00; Stop 07/20/16 at 12:01; Status DC Naloxone HCl (Narcan Inj) 0.4 mg UNSCH PRN IV SEE LABEL COMMENTS; Start at 13:00 Ondansetron HCl (Zofran Inj) 4 mg Q6H PRN IVP NAUSEA OR VOMITING; Start at 13:00 Pantoprazole Sodium (Protonix) 20 mg DAILY PO ; Start 07/21/16 at 09:00 Sodium Chloride (NS 1000 ml Inj) 1,000 ml @ 100 mls/hr Q10H IV Last administered on 07/20/16t 13:27; Start 07/20/16 at 12:46 Sodium Chloride (NS Flush) 2 ml BID IV FLUSH ; Start 07/20/16 at 21:00 Sodium Chloride 2 ml 2 ml UNSCH PRN IVF FLUSH AFTER USING IV ACCESS; Start at 09:15; Stop 07/20/16 at 12:53; Status DC Family History Mother from old age, hx HTN Father, not sure. Brother from colon cancer Social History Lives at home with , has 3 grown children. Was very active prior to illness , no alcohol, no substance abuse, tobacco abuse (Delilah Singh) Physical Exam Vital Signs Vital Signs Date Time Temp Pulse Resp B/P Pulse Ox O2 Delivery O2 Flow Rate FiO2 07/20/16 11:38 70 18 134/60 97 Nasal Cannula 2 07/20/16 09:30 71 18 118/64 97 Nasal Cannula 2 07/20/16 09:24 96 Nasal Cannula 2 07/20/16 09:24 96 Nasal Cannula 2 07/20/16 09:13 97 Nasal Cannula 2 07/20/16 08:58 97.9 66 20 112/55 97 Physical Exam GENERAL: This is a well-nourished, well-developed patient, in no apparent distress. SKIN: No rashes, ecchymoses or lesions. Cool and dry. HEAD: Atraumatic. Normocephalic. No temporal or scalp tenderness. EYES: Pupils equal round and reactive. Extraocular motions intact. No scleral icterus. No injection or drainage. ENT: Nose without bleeding, purulent drainage or septal hematoma. Throat without erythema, tonsillar hypertrophy or exudate. Uvula midline. Airway patent. NECK: Trachea midline. No JVD or lymphadenopathy. Supple, nontender, no meningeal signs. CARDIOVASCULAR: Regular rate and rhythm without murmurs, gallops, or rubs. RESPIRATORY: noted with faint ronchi lower bases. GASTROINTESTINAL: Abdomen soft, non-tender, nondistended. No hepato-splenomegaly , or palpable masses. No guarding. MUSCULOSKELETAL: Right leg shorter than left, unable to perform ROM due to pain , intact sensation. Bilat pedal pulses 2+ NEUROLOGICAL: Awakes to voice, anxious, oriented x 2. No focal deficits. Laboratory Laboratory Tests Test 07/20/16 07/20/16 10:10 10:40 White Blood Count 10.2 Red Blood Count 2.78 Hemoglobin 9.8 Hematocrit 28.6 Mean Corpuscular Volume 102.9 Mean Corpuscular Hemoglobin 35.1 Mean Corpuscular Hemoglobin 34.1 Concent Red Cell Distribution Width 14.8 Platelet Count 304 Mean Platelet Volume 8.5 Neutrophils (%) (Auto) 77.7 Lymphocytes (%) (Auto) 17.1 Monocytes (%) (Auto) 4.8 Eosinophils (%) (Auto) 0.1 Basophils (%) (Auto) 0.3 Neutrophils # (Auto) 7.9 Lymphocytes # (Auto) 1.7 Monocytes # (Auto) 0.5 Eosinophils # (Auto) 0.0 Basophils # (Auto) 0.0 CBC Comment DIFF FINAL Differential Comment Prothrombin Time 12.4 Prothromb Time International 1.1 Ratio Sodium Level 138 Potassium Level 4.9 Chloride Level 107 Carbon Dioxide Level 28.9 Anion Gap 2 Blood Urea Nitrogen 66 Creatinine 2.63 Estimat Glomerular Filtration 23 Rate Random Glucose 111 Calcium Level 9.4 Troponin I 0.02 Date/Time Procedure Status Source Growth 07/20/16 10:30 Aerobic Blood Culture Received Blood Peripheral Pending 07/20/16 10:30 Anaerobic Blood Culture Received Blood Peripheral Pending (Delilah Singh [facility]) Result Diagram: 07/20/16 1010 07/20/16 1040 Imaging Last Impressions Chest X-Ray 07/20/16 0915 Signed Impressions: Service Date/Time: June 09:38 - CONCLUSION: Diffuse infiltration consistent with moderate pulmonary edema versus pneumonia. Clinical correlation is recommended. Tano Jones MD Hip and Pelvis X-Ray 07/20/16 0000 Signed Impressions: Service Date/Time: June 09:38 - CONCLUSION: Comminuted intratrochanteric fracture on the right with diastases/displacement of the fracture fragments. Ananda Way MD Chest CT 07/20/16 0000 Signed Impressions: Service Date/Time: June 09:39 - CONCLUSION: 1. Multiple lytic destructive lesions throughout the thoracic spine which have been described in detail in the recent CT of the thoracic spine consistent with multiple myeloma or metastatic disease. 2. Cardiomegaly and coronary artery calcifications. 3. Focal atelectasis and/or scarring within the right lower lobe. 4. Posterior pleural thickening within the lung bases bilaterally. 5. Degenerative changes and scoliosis of the thoracic spine. 6. Focal lytic lesion involving the posterior aspect of the left fifth rib again consistent with metastatic disease or multiple myeloma. No left rib fracture is noted. Tano Jones MD Abdomen/Pelvis CT 07/20/16 0000 Signed Impressions: Service Date/Time: June 09:42 - CONCLUSION: 1. Focal lytic lesion involving the superior medal aspect of the right iliac crest raising the possibility of metastatic disease or myeloma. 2. Acute comminuted intertrochanteric fracture of the right proximal femur. 3. Markedly enlarged prostate gland. 4. Uncomplicated sigmoid diverticulosis. 5. Stable tiny subcentimeter hepatic cyst. 6. Cardiomegaly and coronary artery calcifications. 7. Multiple bilateral renal cysts. 8. Degenerative changes and scoliosis of the thoracolumbar spine. 9. Right lower lobe atelectasis and/or scarring. 10. Posterior bibasilar pleural thickening. 11. Lytic lesions scattered throughout the thoracic spine at multiple levels which have been described on previous examination consistent with multiple myeloma or metastatic disease. Tano Jones MD (Delilah Singh [facility]) Assessment and Plan Problem List: (1) Intertrochanteric fracture of right hip (2) Multiple myeloma (3) Renal insufficiency (4) Intractable pain (5) Spinal stenosis (6) Anemia (7) possible PNA (8) Bone metastasis Assessment and Plan Admit to Dr. Lizarraga 89-year-old elderly male presented to the emergency room after a fall at home, was found with comminuted intertrochanteric fracture on the right with diastases and displacement of fracture fragments. Patient also recently diagnosed with multiple myeloma with multiple lytic lesions to thoracic spine at multiple levels. Has ongoing back pain. --Dr. Fox has been consulted, plans to do surgery this afternoon.Pt. is stable to proceed with surgery. Family understands he is at high risk for complications and may not tolerate rehab. However, he requires surgery to stabilize fracture. They have rescinded hospice services at this time and plan to seek their services after patient recuperates from surgery. -Continue with pain management -SCDs for DVT prophylaxis. -Douglas to be inserted Recent diagnosis of multiple myeloma, patient has not been able to follow-up with oncology as to begin treatment and unable to start radiation therapy. Has had intractable back pain. Currently on fentanyl patch and morphine. -Continue with supportive care, pain management Imaging findings of possible pneumonia versus pulmonary edema Continue with empiric antibiotics DuoNeb's as needed Continue with oxygen at 2 L to keep sats greater than 92 -cautious hydration Anemia, chronic Follow CBC Renal insufficiency, creat more elevated, poss. due to dehydration. Continue cautious hydration Follow BMP History of enlarged prostate Continue with finasteride 5 mg by mouth daily For DVT prophylaxis, SCDs for now Plan of care has been discussed with the patient and his family, attending and registered nurse. Further management of the patient will be dependent on hospital course End-of-life care issues have been discussed with the patient and his family. At this time hospice is rescinded, they plan to seek their services after patient comes out of surgery if he's not able to tolerate rehabilitation. Pt's condition is guarded. This patient was seen by myself and Dr. Lizarraga, this H&P is written on his behalf (Delilah Singh) Assessment and Plan pt is seen and examined as above chart reviewed dw pt plan of care jaron mckenziep dw rn agree with above (Deep Lizarraga MD) Physician Certification 2 Midnight Certification Type: Admission for Inpatient Services Order for Inpatient Services The services are ordered in accordance with Medicare regulations or non- Medicare payer requirements, as applicable. In the case of services not specified as inpatient-only, they are appropriately provided as inpatient services in accordance with the 2-midnight benchmark. Estimated LOS (days): 2 2 days is the estimated time the patient will need to remain in the hospital, assuming treatment plan goals are met and no additional complications. Post-Hospital Plan: SNF (Delilah Singh) Problem Qualifiers (1) Intertrochanteric fracture of right hip: Qualified Code: S72.141A - Intertrochanteric fracture of right hip, closed, initial encounter (2) Multiple myeloma: Qualified Code: C90.00 - Multiple myeloma, remission status unspecified (3) Anemia: Qualified Code: D64.9 - Anemia, unspecified type Delilah Singh Jul 20, 2016 14:25 Deep Lizarraga MD Jul 20, 2016 21:18
[2016-07-20] MEDS: fentaNYL 25 MCG/HR PATCH TD SCH (15:00)
[2016-07-20] MEDS ORDERED: RESP: ALBUTEROL 2.5 MG/IPRATROPIUM 0.5 MG NEB (PRN) NEB (17:30)
[2016-07-20] MEDS: MORPHINE SULFATE 30 MG CONTROLLED RELEASE TAB PO SCH (18:00)
--- NOTE | 2016-07-20 18:34 | PD.CONS ---
cc: Farhan Moreno MD HPI Service Orthopedic Surgeons Consult Requested By ED staff Reason for Consult Right hip fracture Primary Care Physician Levi Landin M.D. Admission Diagnosis hip fracture, multiple myeloma Diagnoses: (1) Intertrochanteric fracture of right hip (2) Multiple myeloma (3) Renal insufficiency (4) Bone metastasis Chief Complaint: Right hip pain History of Present Illness Pt. is an an 89-year-old man with past medical history of enlarged prostate, hypertension. Patient was recently diagnosed with multiple myeloma on July 03 after he was admitted with intractable back pain. He was discharged and was to follow-up with Dr. Razo as well as Dr. Loya to start chemotherapy and palliative radiation radiation. He's had intractable pain and family decided to enroll him in hospice for symptom management. He has not been able to follow up with either Dr. Razo or Dr. Loya. According to the family, patient was having a good day yesterday, had been started on steroids in addition to fentanyl and morphine in this had been managing his pain very well. He was eating more and had been more active than usual. Apparently while they were sleeping, he got out of bed and they heard the patient fall. Patient is in pain at this time, his very anxious and information is provided by the patient's son by telephone. The patient is non-Sammarinese speaking. He is complaining of abdominal pain as well as right leg pain. Patient was examined in the emergency room, imaging studies were completed. Review of Systems Gastrointestinal: COMPLAINS OF: Abdominal pain Musculoskeletal: COMPLAINS OF: Joint pain, Back pain Reviewed and well outlined in the medical record Past Family Social History Past Medical History Past Family Social History Past Medical History Recent diagnosis of multiple myeloma 07/04/16 Anxiety. Benign prostatic hypertrophy. Renal insufficiency Past Surgical History Appendectomy Right inguinal hernia repair. Reported Medications Reported Meds & Active Scripts Active Duragesic Patch 72 HR (Fentanyl) 25 Mcg/Hr Patch 1 Patch TD Q2D Morphine ER (Morphine Sulfate) 30 Mg Tab 30 Mg PO Q6HR Protonix (Pantoprazole Sodium) 20 Mg Tab 20 Mg PO DAILY Reported Citalopram (Citalopram Hydrobromide) 20 Mg Tab 20 Mg PO DAILY Finasteride 5 Mg Tab 5 Mg PO DAILY Do not crush. Allergies: Coded Allergies: Penicillin (Verified Allergy, Unknown, rash, 07/20/16) Allergies: Coded Allergies: Penicillin (Verified Allergy, Unknown, rash, 07/20/16) Active Ordered Medications Current Medications Medications (Trade) Dose Ordered Sig/Clement Route Start Time Stop Time Status Last Admin (NS 1000 ml Inj) 1,000 ml @ 50 mls/hr Q20H IV 07/20/16 12:46 07/20/16 13:27 (NS Flush) 2 ml UNSCH PRN IV FLUSH 07/20/16 13:00 (NS Flush) 2 ml BID IV FLUSH 07/20/16 21:00 (Tylenol) 650 mg Q4H PRN PO 07/20/16 13:00 (Zofran Inj) 4 mg Q6H PRN IVP 07/20/16 13:00 (Narcan Inj) 0.4 mg UNSCH PRN IV 07/20/16 13:00 (Morphine Inj) 4 mg Q3H PRN IV PUSH 07/20/16 13:00 07/20/16 14:13 (CeleXA) 20 mg DAILY PO 07/21/16 09:00 (Duragesic 25 Mcg Patch.72 Hr) 1 patch Q3D TD 07/20/16 15:00 07/20/16 15:00 (Proscar) 5 mg DAILY PO 07/21/16 09:00 (Oramorph Sr) 30 mg Q6HR PO 07/20/16 18:00 (Protonix) 20 mg DAILY PO 07/21/16 09:00 Miscellaneous Information 1 1 Q3D TD 07/23/16 15:00 (Zithromax Inj/ NS 250 ml Inj) 250 ml @ 250 mls/hr Q24H IV 07/21/16 15:00 Reported Meds & Active Scripts Active Duragesic Patch 72 HR (Fentanyl) 25 Mcg/Hr Patch 1 Patch TD Q2D Morphine ER (Morphine Sulfate) 30 Mg Tab 30 Mg PO Q6HR Protonix (Pantoprazole Sodium) 20 Mg Tab 20 Mg PO DAILY Reported Citalopram (Citalopram Hydrobromide) 20 Mg Tab 20 Mg PO DAILY Finasteride 5 Mg Tab 5 Mg PO DAILY Do not crush. Family History Family History Mother from old age, hx HTN Father, not sure. Brother from colon cancer Social History Lives at home with , has 3 grown children. Was very active prior to illness , no alcohol, no substance abuse, tobacco abuse Physical Exam Vital Signs Vital Signs Date Time Temp Pulse Resp B/P Pulse Ox O2 Delivery O2 Flow Rate FiO2 07/20/16 18:20 59 18 123/57 97 Nasal Cannula 2 07/20/16 14:44 65 18 125/61 96 Nasal Cannula 2 07/20/16 11:38 70 18 134/60 97 Nasal Cannula 2 07/20/16 09:30 71 18 118/64 97 Nasal Cannula 2 07/20/16 09:24 96 Nasal Cannula 2 07/20/16 09:24 96 Nasal Cannula 2 07/20/16 09:13 97 Nasal Cannula 2 07/20/16 08:58 97.9 66 20 112/55 97 Physical Exam His exam is limited secondary to pain and inability to follow commands well secondary to language and medication. He holds his right hip in a flexed and rotated position. There is pain with any attempted range of motion. There is no overlying skin change. There is no obvious sign of other extremity injury. Neurologic testing is unreliable. Laboratory Laboratory Tests Test 07/20/16 07/20/16 10:10 10:40 White Blood Count 10.2 Red Blood Count 2.78 Hemoglobin 9.8 Hematocrit 28.6 Mean Corpuscular Volume 102.9 Mean Corpuscular Hemoglobin 35.1 Mean Corpuscular Hemoglobin 34.1 Concent Red Cell Distribution Width 14.8 Platelet Count 304 Mean Platelet Volume 8.5 Neutrophils (%) (Auto) 77.7 Lymphocytes (%) (Auto) 17.1 Monocytes (%) (Auto) 4.8 Eosinophils (%) (Auto) 0.1 Basophils (%) (Auto) 0.3 Neutrophils # (Auto) 7.9 Lymphocytes # (Auto) 1.7 Monocytes # (Auto) 0.5 Eosinophils # (Auto) 0.0 Basophils # (Auto) 0.0 CBC Comment DIFF FINAL Differential Comment Prothrombin Time 12.4 Prothromb Time International 1.1 Ratio Sodium Level 138 Potassium Level 4.9 Chloride Level 107 Carbon Dioxide Level 28.9 Anion Gap 2 Blood Urea Nitrogen 66 Creatinine 2.63 Estimat Glomerular Filtration 23 Rate Random Glucose 111 Calcium Level 9.4 Troponin I 0.02 Date/Time Procedure Status Source Growth 07/20/16 10:30 Aerobic Blood Culture Received Blood Peripheral Pending 07/20/16 10:30 Anaerobic Blood Culture Received Blood Peripheral Pending Result Diagram: 07/20/16 1010 07/20/16 1040 Imaging Last 48 hours Impressions Chest X-Ray 07/20/16 0915 Signed Impressions: Service Date/Time: June 09:38 - CONCLUSION: Diffuse infiltration consistent with moderate pulmonary edema versus pneumonia. Clinical correlation is recommended. Tano Jones MD Hip and Pelvis X-Ray 07/20/16 0000 Signed Impressions: Service Date/Time: June 09:38 - CONCLUSION: Comminuted intratrochanteric fracture on the right with diastases/displacement of the fracture fragments. Ananda Way MD Chest CT 07/20/16 0000 Signed Impressions: Service Date/Time: June 09:39 - CONCLUSION: 1. Multiple lytic destructive lesions throughout the thoracic spine which have been described in detail in the recent CT of the thoracic spine consistent with multiple myeloma or metastatic disease. 2. Cardiomegaly and coronary artery calcifications. 3. Focal atelectasis and/or scarring within the right lower lobe. 4. Posterior pleural thickening within the lung bases bilaterally. 5. Degenerative changes and scoliosis of the thoracic spine. 6. Focal lytic lesion involving the posterior aspect of the left fifth rib again consistent with metastatic disease or multiple myeloma. No left rib fracture is noted. Tano Jones MD Abdomen/Pelvis CT 07/20/16 0000 Signed Impressions: Service Date/Time: June 09:42 - CONCLUSION: 1. Focal lytic lesion involving the superior medal aspect of the right iliac crest raising the possibility of metastatic disease or myeloma. 2. Acute comminuted intertrochanteric fracture of the right proximal femur. 3. Markedly enlarged prostate gland. 4. Uncomplicated sigmoid diverticulosis. 5. Stable tiny subcentimeter hepatic cyst. 6. Cardiomegaly and coronary artery calcifications. 7. Multiple bilateral renal cysts. 8. Degenerative changes and scoliosis of the thoracolumbar spine. 9. Right lower lobe atelectasis and/or scarring. 10. Posterior bibasilar pleural thickening. 11. Lytic lesions scattered throughout the thoracic spine at multiple levels which have been described on previous examination consistent with multiple myeloma or metastatic disease. Tano Jones MD Assessment & Plan Problem List: (1) Intertrochanteric fracture of right hip (2) Multiple myeloma (3) Renal insufficiency Assessment and Plan Recommendations are given for internal fixation to allow mobilization and for pain control of the fracture. The nature of the procedure, the risks, expected benefits, as well as the postoperative expectations were discussed with the son by telephone in detail. In addition, the alternatives of treatment and risks of same were discussed. He acknowledges full understanding and has given consent to proceed. Farhan Moreno MD Jul 20, 2016 18:34
[2016-07-20] MEDS ORDERED: HYDROmorphone HCL PF 2 MG/ML VIAL ONE (19:00)
[2016-07-20] MEDS ORDERED: ACETAMINOPHEN 1000 MG/100 ML VIAL IV ONE (19:01)
[2016-07-20] MEDS ORDERED: fentaNYL CITRATE 250 MCG/5 ML AMP ONE (19:01)
[2016-07-20] MEDS ORDERED: GENTAMICIN SULFATE 80 MG/2 ML VIAL ONE (19:03)
[2016-07-20] MEDS ORDERED: CLINDAMYCIN PHOS 600 MG/4 ML VIAL ONE (19:33)
--- NOTE | 2016-07-20 20:51 | PD.OP ---
cc: Farhan Moreno MD Operative Report Date of Surgery: Jul 20, 2016 Preoperative Diagnosis: (1) Intertrochanteric fracture of right hip Postoperative Diagnosis: (1) Intertrochanteric fracture of right hip Procedure: Closed reduction with trochanteric nail fixation right proximal femur fracture Implants: Synthes 11 x 125 intermediate trochanteric nail Anesthesia: Gen. Surgeon: Farhan Moreno Farm Products Shipper(s): Corina Parson PA-C (Ashley) The surgical procedure was assisted by my physician's printer assistant. Her presence was necessary throughout the case for manipulation and positioning of the surgical extremity. My PA was assisting me throughout the duration of this procedure. The skill set of the physician printer assistant was medically necessary to complete this procedure. During the surgical case the surgical technician was working at the back table and the physician printer assistant was directly assisting me. Operation and Findings: Indications: This 89-year-old male fell injuring his right hip earlier today. Patient had pain and inability ambulate. He presented to [facility]. X- rays revealed an intertrochanteric fracture the right proximal femur. Recommendations are for internal fixation to allow mobilization and pain control. Procedure and findings: The patient was taken to the operative suite and after undergoing an adequate level of general anesthesia was placed supine on the fracture table. The right lower extremity was positioned in skin traction and the preoperative reduction checked in both the AP and lateral planes with the C- arm. It was then prepped and draped in usual sterile fashion with alcohol, Hibiclens and ChloraPrep. Preoperative antibiotic consisted of clindamycin 600 mg IV. An incision was made over the lateral aspect of the hip extending from the greater trochanter for distance approximately 3 cm. This was carried down to skin and subcutaneous tense tissue with a knife. Hemostasis was obtained electrocautery. The muscular fascia was incised and split longitudinally. An entry point was selected at the tip of the greater trochanter. This was entered with a threaded guidepin. The position was checked in both the AP and lateral planes with the C-arm. It was subsequently overdrilled. An 11 x 125 Synthes intermediate trochanteric nail was then impacted in the place. Utilizing the outrigger device an additional incision was made distally. A threaded guidepin was advanced through the lateral cortex, across the nail, into the femoral neck and seated in the subchondral bone of the femoral head. The position was checked in both the AP and lateral planes with the C-arm. A measurement was then made. A 100 helical blade was selected. The lateral cortex was overdrilled. The helical blade was then impacted in the place. The locking mechanism was then seated proximally and compression applied to the fracture site.. Utilizing the outrigger device a percutaneous incision was made distally. A trocar was placed against the lateral cortex. The distal interlocking screw hole was drilled and the appropriate length screw placed. The position of the fracture reduction and placement of the internal fixation were checked in both the AP and lateral planes with the C-arm. The wounds were then thoroughly irrigated. They were closed in layers utilizing 0 Vicryl suture on the muscular fascia, 2-0 Vicryl suture on the subcutaneous tense tissue and nina on the skin. Sterile dressings were applied, the patient was awakened, transferred to the hospital bed and taken to the recovery room in stable condition. Estimated blood loss: 100 cc Complications: None Farhan Moreno MD Jul 20, 2016 20:51
--- NOTE | 2016-07-20 20:59 | RADRPT ---
EXAM DATE/TIME: 07/20/2016 19:39 [facility] COMPARISON: No previous studies available for comparison. INDICATIONS : Right Hip Troch Nail. MEDICAL HISTORY : Hernia, inguinal. Spinal cancer. SURGICAL HISTORY : Appendectomy. ENCOUNTER: Initial ACUITY: 1 day PAIN SCORE: Non-responsive. LOCATION: Right Hip. FINDINGS: There is morteza fixation of the proximal right femur across a mildly displaced intertrochanteric fractur e. No complications identified. CONCLUSION: 1. Fixation right hip fracture. Zeus Nunez MD on July 20, 2016 at 20:54 Board Certified Radiologist. This report was verified electronically.
[2016-07-20] MEDS ORDERED: SODIUM CHLORIDE 0.9% FLUSH 10 ML FLUSH IV FLUSH SCH (21:00)
[2016-07-20] MEDS ORDERED: POVIDONE IODINE 10% SOLN 118 ML BOTTLE TOPICAL PRN (21:00)
[2016-07-20] MEDS ORDERED: TEMAZEPAM 15 MG CAP PO PRN (21:00)
[2016-07-20] MEDS ORDERED: BISACODYL 10 MG SUPP PR PRN (21:00)
[2016-07-20] MEDS ORDERED: MAGNESIUM HYDROXIDE SUSP 30 ML CUP PO PRN (21:00)
[2016-07-20] MEDS: SODIUM CHLORIDE 0.9% FLUSH 10 ML FLUSH IV FLUSH SCH (21:00)
[2016-07-20] MEDS ORDERED: oxyCODONE/ACETAMINOPHEN 5 MG/325 MG TAB PO PRN (21:00)
[2016-07-20] MEDS ORDERED: Post-op Orders (for Pharmacy) MISC XX ONE (21:00)
[2016-07-20] MEDS ORDERED: MORPHINE SULFATE 4 MG/ML INJ ONE ×2 (21:22→22:14)
[2016-07-20] MEDS: LACTATED RINGER'S 1000 ML INJ 1,000 ML IV SCH ×2 (21:30→22:27)
[2016-07-20] MEDS ORDERED: DO NOT ADM ANY ANTICOAGULANT DRUGS XX PRN (22:45)
[2016-07-21] VITALS (10 sets, daily range): BP systolic 105–130; BP diastolic 48–70; PULSE 64–100; RESP 16–21; TEMP 96.3–99.2; O2SAT 63–97
[2016-07-21] MEDS: CLINDAMYCIN INJ 600 MG in SODIUM CHLORIDE 0.9% INJ 100 ML IV SCH ×4 (00:37→20:33)
[2016-07-21] MEDS: SODIUM CHLOR 0.9% 1000 ML INJ 1,000 ML IV SCH (04:07)
[2016-07-21 06:00] LABS: AUTOMATED NEUTROPHIL # 4.9 TH/MM3 (1.8-7.7); BASOPHIL % 0.2 % (0.0-2.0); LYMPH % 12.5 % (9.0-44.0); LYMPHOCYTE # 0.8 TH/MM3 (1.0-4.8); MEAN CELL VOLUME 101.8 FL (80.0-100.0); MEAN CORPUSCULAR HEMOGLOBIN 35.8 PG (27.0-34.0); MEAN CORPUSCULAR HGB CONC 35.1 % (32.0-36.0); MONO % 6.3 % (0.0-8.0); PLATELET COUNT 181 TH/MM3 (150-450); RED BLOOD COUNT 1.86 MIL/MM3 (4.50-5.90); RED CELL DISTRIBUTION WIDTH 14.9 % (11.6-17.2); WHITE BLOOD COUNT 6.1 TH/MM3 (4.0-11.0)
[2016-07-21] MEDS: MORPHINE SULFATE 30 MG CONTROLLED RELEASE TAB PO SCH ×5 (06:12→23:31)
[2016-07-21 06:26] LABS: ALKALINE PHOSPHATASE 69 U/L (45-117); ALT (GPT) 25 U/L (12-78); ANION GAP 2 MEQ/L (5-15); AST (GOT) 29 U/L (15-37); BICARBONATE 29.5 MEQ/L (21.0-32.0); BLOOD UREA NITROGEN 56 MG/DL (7-18); CHLORIDE 109 MEQ/L (98-107); GLOMERULAR FILTRATION RATE 30 ML/MIN (>89); POTASSIUM 5.1 MEQ/L (3.5-5.1); SODIUM (NA) 140 MEQ/L (136-145); TOTAL BILIRUBIN ADULT 0.3 MG/DL (0.2-1.0)
[2016-07-21 06:29] LABS: HEMO FLAGS DIFF FINAL
[2016-07-21 06:33] LABS: HEMATOCRIT 18.9 % (39.0-51.0)
--- NOTE | 2016-07-21 07:29 | PD.ORT.PN ---
Subjective Post Op Day #: 1 Subjective Remarks Patient laying comfortably in bed, very broken Eritrean spoken, predominant language is Anguillan. Admits to controlled right hip pain. No other complaints at this time. Objective Vitals Vital Signs Date Time Temp Pulse Resp B/P Pulse Ox O2 Delivery O2 Flow Rate FiO2 07/21/16 04:10 97.6 66 16 130/62 96 07/21/16 03:02 65 07/20/16 22:45 95.6 62 16 122/55 95 07/20/16 22:15 97.7 62 14 118/62 95 Nasal Cannula 3 07/20/16 22:00 60 14 118/55 97 Nasal Cannula 3 07/20/16 21:45 61 12 132/56 96 Nasal Cannula 3 07/20/16 21:30 65 13 139/62 97 Nasal Cannula 3 07/20/16 21:15 66 17 143/63 98 Nasal Cannula 3 07/20/16 21:00 79 15 114/56 98 Simple Mask 8 07/20/16 20:53 98.1 74 14 120/63 98 Simple Mask 8 07/20/16 18:20 59 18 123/57 97 Nasal Cannula 2 07/20/16 14:44 65 18 125/61 96 Nasal Cannula 2 07/20/16 11:38 70 18 134/60 97 Nasal Cannula 2 07/20/16 09:30 71 18 118/64 97 Nasal Cannula 2 07/20/16 09:24 96 Nasal Cannula 2 07/20/16 09:24 96 Nasal Cannula 2 07/20/16 09:13 97 Nasal Cannula 2 07/20/16 08:58 97.9 66 20 112/55 97 I/O 07/20/16 07/20/16 07/20/16 07/21/16 07/21/16 07/21/16 07:00 15:00 23:00 07:00 15:00 23:00 Intake Total 1600 ml 910 ml Output Total 850 ml 600 ml Balance 750 ml 310 ml Intake Oral 0 ml 360 ml IV Total 550 ml Other 1600 ml Output Urine Total 800 ml 600 ml Estimated Blood Loss 50 ml Result Diagram: 07/21/16 0515 07/21/16 0515 Other Results Laboratory Tests Test 07/20/16 10:40 Prothrombin Time 12.4 SEC (9.8-11.6) Prothromb Time International 1.1 RATIO Ratio Imaging Last 48 hours Impressions Chest X-Ray 07/20/16 0915 Signed Impressions: Service Date/Time: June 09:38 - CONCLUSION: Diffuse infiltration consistent with moderate pulmonary edema versus pneumonia. Clinical correlation is recommended. Tano Jones MD Hip and Pelvis X-Ray 07/20/16 0000 Signed Impressions: Service Date/Time: June 09:38 - CONCLUSION: Comminuted intratrochanteric fracture on the right with diastases/displacement of the fracture fragments. Ananda Way MD Hip X-Ray 07/20/16 0000 Signed Impressions: Service Date/Time: June 19:39 - CONCLUSION: 1. Fixation right hip fracture. Zeus Nunez MD Chest CT 07/20/16 0000 Signed Impressions: Service Date/Time: June 09:39 - CONCLUSION: 1. Multiple lytic destructive lesions throughout the thoracic spine which have been described in detail in the recent CT of the thoracic spine consistent with multiple myeloma or metastatic disease. 2. Cardiomegaly and coronary artery calcifications. 3. Focal atelectasis and/or scarring within the right lower lobe. 4. Posterior pleural thickening within the lung bases bilaterally. 5. Degenerative changes and scoliosis of the thoracic spine. 6. Focal lytic lesion involving the posterior aspect of the left fifth rib again consistent with metastatic disease or multiple myeloma. No left rib fracture is noted. Tano Jones MD Abdomen/Pelvis CT 07/20/16 0000 Signed Impressions: Service Date/Time: June 09:42 - CONCLUSION: 1. Focal lytic lesion involving the superior medal aspect of the right iliac crest raising the possibility of metastatic disease or myeloma. 2. Acute comminuted intertrochanteric fracture of the right proximal femur. 3. Markedly enlarged prostate gland. 4. Uncomplicated sigmoid diverticulosis. 5. Stable tiny subcentimeter hepatic cyst. 6. Cardiomegaly and coronary artery calcifications. 7. Multiple bilateral renal cysts. 8. Degenerative changes and scoliosis of the thoracolumbar spine. 9. Right lower lobe atelectasis and/or scarring. 10. Posterior bibasilar pleural thickening. 11. Lytic lesions scattered throughout the thoracic spine at multiple levels which have been described on previous examination consistent with multiple myeloma or metastatic disease. Tano Jones MD Procedures Closed reduction with trochanteric nail fixation right proximal femur fracture ( 07/20/16) Objective Remarks RLE: Dressing dry and intact. Tender to palpation with mild swelling around incision site. Appropriate range of motion expected post operatively. Freely able to move distal digits. No calf pain. Negative Govind's sign. Good cap refill. 2+ pedal pulses. Neurovascular intact. Assessment & Plan Ortho Post Op Day #: 1 Problem List: (1) Intertrochanteric fracture of right hip (2) Multiple myeloma (3) Renal insufficiency (4) Anemia (5) Bone metastasis Assessment and Plan Closed reduction with trochanteric nail fixation right proximal femur fracture POD #1 Ortho status stable. Progress rehab - w/b as tolerated. Lovenox for DVT prophylaxis, continue pain management and bowel regimen. Discharge planning. Case management consulted for home health vs rehab placement upon discharge. Patient will be ready for discharge from an orthopedic standpoint on Sunday, as long as medically stable. Corina Parson Jul 21, 2016 07:29
[2016-07-21] MEDS: SODIUM CHLORIDE 0.9% FLUSH 10 ML FLUSH IV FLUSH SCH ×2 (09:00→20:34)
[2016-07-21] MEDS: CITALOPRAM HYDROBROMIDE 20 MG TAB PO SCH (10:08)
[2016-07-21] MEDS: FINASTERIDE 5 MG TAB PO SCH (10:08)
[2016-07-21] MEDS: PANTOPRAZOLE SOD 20 MG DELAYED RELEASE TAB PO SCH (10:08)
[2016-07-21] MEDS: oxyCODONE/ACETAMINOPHEN 5 MG/325 MG TAB PO PRN (10:09)
[2016-07-21] MEDS: ENOXAPARIN SODIUM 30 MG/0.3 ML SYRINGE SQ SCH (10:09)
[2016-07-21] MEDS: MORPHINE SULFATE 8 MG/ML INJ IV PUSH PRN ×2 (11:27→18:06)
--- NOTE | 2016-07-21 13:21 | HHI.PR ---
Subjective Remarks Awake Speaks name, primary language Color pale No family in room (Emely Osorio) Objective Objective Results - Vital Signs Date Time Temp Pulse Resp B/P Pulse Ox O2 Delivery O2 Flow Rate FiO2 07/21/16 11:40 99.2 68 16 128/59 63 07/21/16 11:20 99.1 64 17 117/58 96 07/21/16 10:59 97 Nasal Cannula 2.00 07/21/16 08:00 98.1 70 19 111/56 94 07/21/16 04:10 97.6 66 16 130/62 96 07/21/16 03:02 65 07/20/16 22:45 95.6 62 16 122/55 95 07/20/16 22:15 97.7 62 14 118/62 95 Nasal Cannula 3 07/20/16 22:00 60 14 118/55 97 Nasal Cannula 3 07/20/16 21:45 61 12 132/56 96 Nasal Cannula 3 07/20/16 21:30 65 13 139/62 97 Nasal Cannula 3 07/20/16 21:15 66 17 143/63 98 Nasal Cannula 3 07/20/16 21:00 79 15 114/56 98 Simple Mask 8 07/20/16 20:53 98.1 74 14 120/63 98 Simple Mask 8 07/20/16 18:20 59 18 123/57 97 Nasal Cannula 2 07/20/16 14:44 65 18 125/61 96 Nasal Cannula 2 I/O 07/20/16 07/20/16 07/20/16 07/21/16 07/21/16 07/21/16 07:00 15:00 23:00 07:00 15:00 23:00 Intake Total 1600 ml 910 ml Output Total 850 ml 600 ml Balance 750 ml 310 ml Intake Oral 0 ml 360 ml IV Total 550 ml Other 1600 ml Output Urine Total 800 ml 600 ml Estimated Blood Loss 50 ml (Emely Osorio) Result Diagram: 07/21/1615 07/21/16 0515 ROS General: Fatigue, Weakness, Other (10 point ROS done positives include weakness fatigue post op repair of hip fracture, multiple myeloma end-stage, other systems negative or unremarkable) (Emely Osorio) Physical Exam Physical Exam PHYSICAL EXAMINATION GENERAL: This is a thin, frail male Resting in the bed. He is awake, responds, predominant language Wallisian HEAD: Normocephalic without any lesion or mass noted. Facial features appear symmetric. OROPHARYNGEAL: Oropharynx without erythema or edema. NECK: Supple. No nuchal rigidity or lymphadenopathy. Trachea midline without deviation. CARDIAC: Regular rhythm, regular rate, S1 and S2 are heard. Soft systolic murmur heard left sternal border LUNGS: Low volumes, no cough no rhonchi No use of accessory muscles on inspiration or expiration. ABDOMEN: Soft, nontender, active bowel sounds EXTREMITIES: No edema. Pulses present. Surgical postop, hip repair NEUROLOGICAL: Patient mood and affect appropriate. No focal deficit SKIN:Warm and moist (Emely Osorio) A/P Assessment and Plan (1) Intertrochanteric fracture of right hip (2) Multiple myeloma (3) Renal insufficiency (4) Intractable pain (5) Spinal stenosis (6) Anemia, severe, status post chronic disease and blood loss acute (7) possible PNA (8) Bone metastasis Continue with pain management -SCDs for DVT prophylaxis. -Douglas to be inserted Recent diagnosis of multiple myeloma, patient has not been able to follow-up with oncology as to begin treatment and unable to start radiation therapy. Has had intractable back pain. Currently on fentanyl patch and morphine. -Continue with supportive care, pain management Appears comfortable now Imaging findings of possible pneumonia versus pulmonary edema Continue with empiric antibiotics DuoNeb's as needed Continue with oxygen at 2 L to keep sats greater than 92 Hydration gentle, 80 cc an hour Anemia, chronic with some acute blood loss status post surgery One unit packed RBCs infusing, approximately 70% complete. and son come in , wishes to stop blood product. is Jehovah witness according to nurse. Son is POA, patient is awake but speaks limited Yakut. Spoke with case management, course of treatment and discharge planning Renal insufficiency, creat more elevated, poss. due to dehydration. Continue cautious hydration History of enlarged prostate Continue with finasteride 5 mg by mouth daily, medical management For DVT prophylaxis, SCDs for now Discharge planning in process, cleared per ortho. Labs show acute anemia status post surgery. We will review goals of care and options with buildings and grounds superintendent present, patient and family in room. We'll follow up (Emely Osorio) Assessment and Plan pt is feeling some pain in hip sx area no other complain Alert and oriented dw pt jaron rodriguez rn about blood tx. As per her an pt both dont want it. I left message for son to call me back jaron rn jaron cueva about plan of care meds labs and rad data reviwed some of previous notes reviewd time spent in mangment of this pt is more than 35 min (Deep Lizarraga MD) Emely Osorio Jul 21, 2016 13:21 Deep Lizarraga MD Jul 21, 2016 15:03
[2016-07-21] MEDS: AZITHROMYCIN INJ 500 MG in SODIUM CHLOR 0.9% 250 ML INJ 250 ML IV SCH (14:21)
[2016-07-21] MEDS: MULTIVITAMINS/MINERALS THERAPEUTIC TAB PO SCH (20:33)
[2016-07-21] MEDS: DOCUSATE SODIUM 100 MG CAP PO SCH (20:33)
[2016-07-21] MEDS: LACTATED RINGER'S 1000 ML INJ 1,000 ML IV SCH (21:51)
[2016-07-22] VITALS: BP 107/52; PULSE 73; RESP 18; TEMP 98; O2SAT 98
[2016-07-22] MEDS: SODIUM CHLOR 0.9% 1000 ML INJ 1,000 ML IV SCH ×2 (00:07→20:07)
[2016-07-22 04:00] VITALS: BP 112/60; PULSE 74; RESP 16; TEMP 98.6; O2SAT 96
[2016-07-22] MEDS: MORPHINE SULFATE 30 MG CONTROLLED RELEASE TAB PO SCH ×4 (05:55→23:09)
--- NOTE | 2016-07-22 07:18 | PD.ORT.PN ---
Subjective Subjective Remarks POD 2 s/p right intertroch IMN confused. difficult to understand. Objective Vitals Vital Signs Date Time Temp Pulse Resp B/P Pulse Ox O2 Delivery O2 Flow Rate FiO2 07/22/16 04:00 98.6 74 16 112/60 96 07/22/16 00:00 98.0 73 18 107/52 98 07/21/16 20:55 83 117/70 07/21/16 20:00 98.6 71 16 105/48 97 07/21/16 16:00 96.3 77 21 110/55 95 07/21/16 16:00 98.8 100 18 122/62 95 07/21/16 11:40 99.2 68 16 128/59 63 07/21/16 11:20 99.1 64 17 117/58 96 07/21/16 11:15 99.1 64 17 117/58 96 07/21/16 10:59 97 Nasal Cannula 2.00 07/21/16 08:00 98.1 70 19 111/56 94 I/O 07/21/16 07/21/16 07/21/16 07/22/16 07/22/16 07/22/16 07:00 15:00 23:00 07:00 15:00 23:00 Intake Total 910 ml 2280 ml 240 ml 660 ml Output Total 600 ml 2400 ml Balance 310 ml -120 ml 240 ml 660 ml Intake Oral 360 ml 2280 ml 240 ml 240 ml IV Total 550 ml 420 ml Output Urine Total 600 ml 2400 ml # Voids 6 0 1 # Bowel Movements 4 Result Diagram: 07/21/1615 07/21/16 0515 Imaging Last 48 hours Impressions Chest X-Ray 07/20/1615 Signed Impressions: Service Date/Time: June 09:38 - CONCLUSION: Diffuse infiltration consistent with moderate pulmonary edema versus pneumonia. Clinical correlation is recommended. Tano Jones MD Hip and Pelvis X-Ray 07/20/16 0000 Signed Impressions: Service Date/Time: June 09:38 - CONCLUSION: Comminuted intratrochanteric fracture on the right with diastases/displacement of the fracture fragments. Ananda Way MD Hip X-Ray 07/20/16 0000 Signed Impressions: Service Date/Time: June 19:39 - CONCLUSION: 1. Fixation right hip fracture. Zeus Nunez MD Chest CT 07/20/16 0000 Signed Impressions: Service Date/Time: June 09:39 - CONCLUSION: 1. Multiple lytic destructive lesions throughout the thoracic spine which have been described in detail in the recent CT of the thoracic spine consistent with multiple myeloma or metastatic disease. 2. Cardiomegaly and coronary artery calcifications. 3. Focal atelectasis and/or scarring within the right lower lobe. 4. Posterior pleural thickening within the lung bases bilaterally. 5. Degenerative changes and scoliosis of the thoracic spine. 6. Focal lytic lesion involving the posterior aspect of the left fifth rib again consistent with metastatic disease or multiple myeloma. No left rib fracture is noted. Tano Jones MD Abdomen/Pelvis CT 07/20/16 0000 Signed Impressions: Service Date/Time: June 09:42 - CONCLUSION: 1. Focal lytic lesion involving the superior medal aspect of the right iliac crest raising the possibility of metastatic disease or myeloma. 2. Acute comminuted intertrochanteric fracture of the right proximal femur. 3. Markedly enlarged prostate gland. 4. Uncomplicated sigmoid diverticulosis. 5. Stable tiny subcentimeter hepatic cyst. 6. Cardiomegaly and coronary artery calcifications. 7. Multiple bilateral renal cysts. 8. Degenerative changes and scoliosis of the thoracolumbar spine. 9. Right lower lobe atelectasis and/or scarring. 10. Posterior bibasilar pleural thickening. 11. Lytic lesions scattered throughout the thoracic spine at multiple levels which have been described on previous examination consistent with multiple myeloma or metastatic disease. Tano Jones MD Procedures Closed reduction with trochanteric nail fixation right proximal femur fracture ( 07/20/16) Objective Remarks RLE: Dressing dry and intact. Tender to palpation with mild swelling around incision site. Appropriate range of motion expected post operatively. Freely able to move distal digits. No calf pain. Negative Govind's sign. Good cap refill. 2+ pedal pulses. Neurovascular intact. Assessment & Plan Problem List: (1) Intertrochanteric fracture of right hip (2) Multiple myeloma (3) Renal insufficiency (4) Anemia (5) Bone metastasis Assessment and Plan Closed reduction with trochanteric nail fixation right proximal femur fracture POD #2 Ortho status stable. Progress rehab - w/b as tolerated. Lovenox for DVT prophylaxis, continue pain management and bowel regimen. Discharge planning. Case management consulted for home health vs rehab placement upon discharge. Patient will be ready for discharge from an orthopedic standpoint on Sunday, as long as medically stable. Cody Delgado Jul 22, 2016 07:18
[2016-07-22 08:00] VITALS: BP 142/58; PULSE 95; RESP 17; TEMP 100; O2SAT 92
[2016-07-22] MEDS: PANTOPRAZOLE SOD 20 MG DELAYED RELEASE TAB PO SCH (08:38)
[2016-07-22] MEDS: MULTIVITAMINS/MINERALS THERAPEUTIC TAB PO SCH ×2 (08:38→20:06)
[2016-07-22] MEDS: ENOXAPARIN SODIUM 30 MG/0.3 ML SYRINGE SQ SCH (08:38)
[2016-07-22] MEDS: FINASTERIDE 5 MG TAB PO SCH (08:38)
[2016-07-22] MEDS: CITALOPRAM HYDROBROMIDE 20 MG TAB PO SCH (08:38)
[2016-07-22] MEDS: DOCUSATE SODIUM 100 MG CAP PO SCH ×2 (08:38→20:06)
[2016-07-22] MEDS: SODIUM CHLORIDE 0.9% FLUSH 10 ML FLUSH IV FLUSH SCH ×2 (08:39→20:07)
[2016-07-22] MEDS: LACTATED RINGER'S 1000 ML INJ 1,000 ML IV SCH ×2 (10:21→20:07)
[2016-07-22 11:17] LABS: MEAN CELL VOLUME 100.1 FL (80.0-100.0); MEAN CORPUSCULAR HEMOGLOBIN 34.8 PG (27.0-34.0); MEAN CORPUSCULAR HGB CONC 34.8 % (32.0-36.0); PLATELET COUNT 192 TH/MM3 (150-450); RED BLOOD COUNT 2.03 MIL/MM3 (4.50-5.90); RED CELL DISTRIBUTION WIDTH 17.8 % (11.6-17.2); WHITE BLOOD COUNT 5.8 TH/MM3 (4.0-11.0)
[2016-07-22 11:26] LABS: REVIEW FLAG FINAL
[2016-07-22 11:27] LABS: HEMATOCRIT 20.3 % (39.0-51.0)
--- NOTE | 2016-07-22 11:30 | HHI.PR ---
Subjective Remarks lethargic, but responds Speaks name, primary language Color pale No family in room temp 100. this am (Emely Osorio) Objective Objective Results - Vital Signs Date Time Temp Pulse Resp B/P Pulse Ox O2 Delivery O2 Flow Rate FiO2 07/22/16 08:00 100.0 95 17 142/58 92 07/22/16 04:00 98.6 74 16 112/60 96 07/22/16 00:00 98.0 73 18 107/52 98 07/21/16 20:55 83 117/70 07/21/16 20:00 98.6 71 16 105/48 97 07/21/16 16:00 96.3 77 21 110/55 95 07/21/16 16:00 98.8 100 18 122/62 95 07/21/16 11:40 99.2 68 16 128/59 63 I/O 07/21/16 07/21/16 07/21/16 07/22/16 07/22/16 07/22/16 07:00 15:00 23:00 07:00 15:00 23:00 Intake Total 910 ml 2280 ml 240 ml 660 ml Output Total 600 ml 2400 ml Balance 310 ml -120 ml 240 ml 660 ml Intake Oral 360 ml 2280 ml 240 ml 240 ml IV Total 550 ml 420 ml Output Urine Total 600 ml 2400 ml # Voids 6 0 1 # Bowel Movements 4 (Emely Osorio) Result Diagram: 07/21/16 0515 07/21/16 0515 ROS General: Fatigue, Weakness, Other (10 point ROS done positives include lethargy , possible constipation, fatigue and weakness other systems negative or unremarkable) GI: Other (taut abd, BM? pt. said no) (Emely Osorio) Physical Exam Physical Exam PHYSICAL EXAMINATION GENERAL: This is a chronic ill male Resting in bed He is drowsy and responds to yes no HEAD: Normocephalic without any lesion or mass noted. Facial features appear symmetric. OROPHARYNGEAL: Oropharynx without erythema or edema., Dry, pale NECK: Supple. No nuchal rigidity or lymphadenopathy. Trachea midline without deviation. CARDIAC: Regular rhythm, regular rate, S1 and S2 are heard. Distant LUNGS: Low volumes to auscultation bilaterally. Diminished breath sounds ABDOMEN: Soft, nontender, no organomegaly or masses. Bowel sounds are heard in all four quadrants. No rebound. No guarding. EXTREMITIES: Minimal edema. At surgical site right hip NEUROLOGICAL: Patient mood and affect appropriate. No focal deficit SKIN:Warm and moist, incision line clean dry and intact, right hip Objective Remarks Status post R ORIF right hip (Emley Osorio) A/P Assessment and Plan (1) Intertrochanteric fracture of right hip (2) Multiple myeloma (3) Renal insufficiency (4) Intractable pain (5) Spinal stenosis (6) Anemia, severe, status post chronic disease and blood loss acute (7) possible PNA (8) Bone metastasis Status post R ORIF right hip, pain management and any other or throat related postop care per ortho. Possible release from ortho perspective on Sunday. Continue with pain management -SCDs for DVT prophylaxis. -Douglas continues to bedside drainage, patient very weak Recent diagnosis of multiple myeloma, patient has not been able to follow-up with oncology as to begin treatment and unable to start radiation therapy. Has had intractable back pain. Currently on fentanyl patch and morphine. -Continue with supportive care, pain management Mild facial grimace noted, generalized weakness continues No family present Imaging findings of possible pneumonia versus pulmonary edema Continue with empiric antibiotics for now DuoNeb's as needed O2 as needed Hydration gentle, 80 cc an hour Anemia, chronic with some acute blood loss status post surgery No further blood given, labs drawn late a.m. pending for review Renal insufficiency, creat more elevated, poss. due to dehydration. Continue cautious hydration History of enlarged prostate Continue with finasteride 5 mg by mouth daily, medical management\ Constipation abd. taut, patient says no to BM. Ducolax supp for today. Discharge planning, case management assisted Will review options with the patient and family, hospice versus rehabilitation. Currently patient is very weak, rehabilitation may not be his best option. ( Emely Osorio) Assessment and Plan Patient seen and examined as above with at bedside Meds and labs reviewed Appreciate orthopedic input Discussed with about discharge planning to SNF. Both patient and refusing blood transfusion Labs reviewed improving renal function Has low-grade fever plan for UA Discussed with patient and at bedside Discussed with RN Plan of care discussed with MELVIN Condition guarded total time spent in managment of this pt is more than 35 min (Deep Lizarraga MD) Emely Osorio Jul 22, 2016 11:30 Deep Lizarraga MD Jul 22, 2016 13:44
[2016-07-22 11:31] LABS: BICARBONATE 27.5 MEQ/L (21.0-32.0); POTASSIUM 4.5 MEQ/L (3.5-5.1)
[2016-07-22 12:00] VITALS: BP 118/57; PULSE 71; RESP 18; TEMP 100.2; O2SAT 100
[2016-07-22] MEDS ORDERED: BISACODYL 10 MG SUPP RECTAL ONE (12:00)
[2016-07-22 16:00] VITALS: BP 116/50; PULSE 64; RESP 18; TEMP 98; O2SAT 98
[2016-07-22] MEDS: AZITHROMYCIN INJ 500 MG in SODIUM CHLOR 0.9% 250 ML INJ 250 ML IV SCH (16:49)
[2016-07-22 19:45] VITALS: BP 120/46; PULSE 75; RESP 18; TEMP 97.5; O2SAT 100
[2016-07-23 00:07] VITALS: BP 123/49; PULSE 78; RESP 18; TEMP 98.8; O2SAT 100
[2016-07-23 04:25] VITALS: BP 104/51; PULSE 68; RESP 17; TEMP 97.8; O2SAT 99
[2016-07-23] MEDS: SODIUM CHLOR 0.9% 1000 ML INJ 1,000 ML IV SCH (06:23)
[2016-07-23] MEDS: MORPHINE SULFATE 30 MG CONTROLLED RELEASE TAB PO SCH ×3 (06:23→17:18)
--- NOTE | 2016-07-23 06:50 | PD.ORT.PN ---
Subjective Subjective Remarks POD 3 s/p right intertroch IMN confused. difficult to understand. reports no pain Objective Vitals Vital Signs Date Time Temp Pulse Resp B/P Pulse Ox O2 Delivery O2 Flow Rate FiO2 07/23/16 04:25 97.8 68 17 104/51 99 07/23/16 00:07 98.8 78 18 123/49 100 07/22/16 19:45 97.5 75 18 120/46 100 07/22/16 18:44 Nasal Cannula 4.00 07/22/16 16:00 98.0 64 18 116/50 98 07/22/16 13:33 18 07/22/16 12:00 100.2 71 18 118/57 100 07/22/16 08:00 100.0 95 17 142/58 92 I/O 07/22/16 07/22/16 07/22/16 07/23/16 07/23/16 07/23/16 07:00 15:00 23:00 07:00 15:00 23:00 Intake Total 660 ml 1512 ml 675 ml Balance 660 ml 1512 ml 675 ml Intake Oral 240 ml 600 ml 240 ml IV Total 420 ml 912 ml 435 ml # Voids 1 6 3 # Bowel Movements 0 1 Result Diagram: 07/22/16 1042 07/22/16 1042 Imaging Last 48 hours Impressions Chest X-Ray 07/20/1615 Signed Impressions: Service Date/Time: June 09:38 - CONCLUSION: Diffuse infiltration consistent with moderate pulmonary edema versus pneumonia. Clinical correlation is recommended. Tano Jones MD Hip and Pelvis X-Ray 07/20/16 0000 Signed Impressions: Service Date/Time: June 09:38 - CONCLUSION: Comminuted intratrochanteric fracture on the right with diastases/displacement of the fracture fragments. Ananda Way MD Hip X-Ray 07/20/16 0000 Signed Impressions: Service Date/Time: June 19:39 - CONCLUSION: 1. Fixation right hip fracture. Zeus Nunez MD Chest CT 07/20/16 0000 Signed Impressions: Service Date/Time: June 09:39 - CONCLUSION: 1. Multiple lytic destructive lesions throughout the thoracic spine which have been described in detail in the recent CT of the thoracic spine consistent with multiple myeloma or metastatic disease. 2. Cardiomegaly and coronary artery calcifications. 3. Focal atelectasis and/or scarring within the right lower lobe. 4. Posterior pleural thickening within the lung bases bilaterally. 5. Degenerative changes and scoliosis of the thoracic spine. 6. Focal lytic lesion involving the posterior aspect of the left fifth rib again consistent with metastatic disease or multiple myeloma. No left rib fracture is noted. Tano Jones MD Abdomen/Pelvis CT 07/20/16 0000 Signed Impressions: Service Date/Time: June 09:42 - CONCLUSION: 1. Focal lytic lesion involving the superior medal aspect of the right iliac crest raising the possibility of metastatic disease or myeloma. 2. Acute comminuted intertrochanteric fracture of the right proximal femur. 3. Markedly enlarged prostate gland. 4. Uncomplicated sigmoid diverticulosis. 5. Stable tiny subcentimeter hepatic cyst. 6. Cardiomegaly and coronary artery calcifications. 7. Multiple bilateral renal cysts. 8. Degenerative changes and scoliosis of the thoracolumbar spine. 9. Right lower lobe atelectasis and/or scarring. 10. Posterior bibasilar pleural thickening. 11. Lytic lesions scattered throughout the thoracic spine at multiple levels which have been described on previous examination consistent with multiple myeloma or metastatic disease. Tano Jones MD Procedures Closed reduction with trochanteric nail fixation right proximal femur fracture ( 07/20/16) Objective Remarks RLE: Dressing dry and intact. Tender to palpation with mild swelling around incision site. Appropriate range of motion expected post operatively. Freely able to move distal digits. No calf pain. Negative Govind's sign. Good cap refill. 2+ pedal pulses. Neurovascular intact. Assessment & Plan Problem List: (1) Intertrochanteric fracture of right hip (2) Multiple myeloma (3) Renal insufficiency (4) Anemia (5) Bone metastasis Assessment and Plan Closed reduction with trochanteric nail fixation right proximal femur fracture POD #3 Ortho status stable. Progress rehab - w/b as tolerated. Lovenox for DVT prophylaxis, continue pain management and bowel regimen. Discharge planning. Case management consulted for home health vs rehab placement upon discharge. Patient will be ready for discharge from an orthopedic standpoint on Sunday, as long as medically stable. Cody Delgado Jul 23, 2016 06:50
[2016-07-23 08:00] VITALS: BP 121/50; PULSE 70; RESP 19; TEMP 96.2; O2SAT 100
[2016-07-23] MEDS: SODIUM CHLORIDE 0.9% FLUSH 10 ML FLUSH IV FLUSH SCH (09:00)
[2016-07-23] MEDS: DOCUSATE SODIUM 100 MG CAP PO SCH (09:00)
[2016-07-23] MEDS: FINASTERIDE 5 MG TAB PO SCH (09:45)
[2016-07-23] MEDS: PANTOPRAZOLE SOD 20 MG DELAYED RELEASE TAB PO SCH (09:45)
[2016-07-23] MEDS: MULTIVITAMINS/MINERALS THERAPEUTIC TAB PO SCH (09:45)
[2016-07-23] MEDS: CITALOPRAM HYDROBROMIDE 20 MG TAB PO SCH (09:45)
[2016-07-23] MEDS: oxyCODONE/ACETAMINOPHEN 5 MG/325 MG TAB PO PRN ×2 (09:46→15:50)
[2016-07-23] MEDS: ENOXAPARIN SODIUM 30 MG/0.3 ML SYRINGE SQ SCH (09:49)
[2016-07-23 12:00] VITALS: BP 108/48; PULSE 93; RESP 18; TEMP 98.2; O2SAT 100
[2016-07-23] MEDS ORDERED: OXYC1TAB63 PO (13:57)
[2016-07-23] MEDS ORDERED: ENOX30P SQ (13:57)
[2016-07-23] MEDS ORDERED: MORP1TAB25 PO (13:57)
[2016-07-23] MEDS ORDERED: FENT25T TD (13:57)
[2016-07-23] MEDS ORDERED: IPRASOL NEB (13:57)
[2016-07-23] MEDS ORDERED: ZITH500T PO (13:57)
--- NOTE | 2016-07-23 14:06 | HHI.PR ---
Subjective Remarks more alert today Speaks name, primary language Color pale, misti, No family in room, son and attempting to eat. afebrile Objective Objective Results - Vital Signs Date Time Temp Pulse Resp B/P Pulse Ox O2 Delivery O2 Flow Rate FiO2 07/23/16 12:00 98.2 93 18 108/48 100 07/23/16 08:00 96.2 70 19 121/50 100 07/23/16 04:25 97.8 68 17 104/51 99 07/23/16 00:07 98.8 78 18 123/49 100 07/22/16 19:45 97.5 75 18 120/46 100 07/22/16 18:44 Nasal Cannula 4.00 07/22/16 16:00 98.0 64 18 116/50 98 I/O 07/22/16 07/22/16 07/22/16 07/23/16 07/23/16 07/23/16 07:00 15:00 23:00 07:00 15:00 23:00 Intake Total 660 ml 1512 ml 675 ml Balance 660 ml 1512 ml 675 ml Intake Oral 240 ml 600 ml 240 ml IV Total 420 ml 912 ml 435 ml # Voids 1 6 3 # Bowel Movements 0 1 Result Diagram: 07/22/16 1042 07/22/16 1042 Other Results Last Impressions Chest X-Ray 07/20/1615 Signed Impressions: Service Date/Time: June 09:38 - CONCLUSION: Diffuse infiltration consistent with moderate pulmonary edema versus pneumonia. Clinical correlation is recommended. Tano Jones MD Hip and Pelvis X-Ray 07/20/16 0000 Signed Impressions: Service Date/Time: June 09:38 - CONCLUSION: Comminuted intratrochanteric fracture on the right with diastases/displacement of the fracture fragments. Ananda Way MD Hip X-Ray 07/20/16 0000 Signed Impressions: Service Date/Time: June 19:39 - CONCLUSION: 1. Fixation right hip fracture. Zeus Nunez MD Chest CT 07/20/16 0000 Signed Impressions: Service Date/Time: June 09:39 - CONCLUSION: 1. Multiple lytic destructive lesions throughout the thoracic spine which have been described in detail in the recent CT of the thoracic spine consistent with multiple myeloma or metastatic disease. 2. Cardiomegaly and coronary artery calcifications. 3. Focal atelectasis and/or scarring within the right lower lobe. 4. Posterior pleural thickening within the lung bases bilaterally. 5. Degenerative changes and scoliosis of the thoracic spine. 6. Focal lytic lesion involving the posterior aspect of the left fifth rib again consistent with metastatic disease or multiple myeloma. No left rib fracture is noted. Tano Jones MD Abdomen/Pelvis CT 07/20/16 0000 Signed Impressions: Service Date/Time: June 09:42 - CONCLUSION: 1. Focal lytic lesion involving the superior medal aspect of the right iliac crest raising the possibility of metastatic disease or myeloma. 2. Acute comminuted intertrochanteric fracture of the right proximal femur. 3. Markedly enlarged prostate gland. 4. Uncomplicated sigmoid diverticulosis. 5. Stable tiny subcentimeter hepatic cyst. 6. Cardiomegaly and coronary artery calcifications. 7. Multiple bilateral renal cysts. 8. Degenerative changes and scoliosis of the thoracolumbar spine. 9. Right lower lobe atelectasis and/or scarring. 10. Posterior bibasilar pleural thickening. 11. Lytic lesions scattered throughout the thoracic spine at multiple levels which have been described on previous examination consistent with multiple myeloma or metastatic disease. Tano Jones MD Medications and IVs Active Medications Miscellaneous Information 1 Q3D TD; Start 07/23/16 at 15:00 ROS General: Fatigue, Weakness (chronic illness, myeloma), Other (10 point ROS done. decreased appetite, soreness to move rt. hip, debility, otherwise unremarkable systems.) Pulmonary: SOB (none at rest.) Neuro/MS: Other (S/P rt. hip fx with repair) Physical Exam Physical Exam PHYSICAL EXAMINATION GENERAL: This is a slim, male who appears to be in no acute distress. He is awake, attempting to eat. HEAD: Normocephalic without any lesion or mass noted. Facial features appear symmetric. OROPHARYNGEAL: Oropharynx without erythema or edema. NECK: Supple. No nuchal rigidity or lymphadenopathy. Trachea midline without deviation. CARDIAC: Regular rhythm, regular rate, S1 and S2 are heard. Murmur []; no gallops or rubs. LUNGS: Clear to auscultation bilaterally. [] wheeze, [] rhonchi or [] rale. No use of accessory muscles on inspiration or expiration. ABDOMEN: Soft, nontender, no organomegaly or masses. Bowel sounds are heard in all four quadrants. No rebound. No guarding. EXTREMITIES: no edema. Pulses intact. Low back pain with movement. NEUROLOGICAL: Patient mood and affect appropriate/flat SKIN:Warm and moist, misti Objective Remarks Im trying to eat. Shakes head yes to most conversation. A/P Assessment and Plan (1) Intertrochanteric fracture of right hip (2) Multiple myeloma (3) Renal insufficiency (4) Intractable pain (5) Spinal stenosis (6) Anemia, severe, status post chronic disease and blood loss acute (7) possible PNA (8) Bone metastasis Status post R ORIF right hip, pain management and any other or throat related postop care per ortho. Possible release from ortho perspective on Sunday. Continue with pain management, best managed with fentanyl patches, and Morphine -SCDs for DVT prophylaxis. -Douglas in Telemetry, SR, rate 67. stable Recent diagnosis of multiple myeloma, no f/u with oncology, still very weak Has had intractable back pain. Currently on fentanyl patch and morphine. -Continue with supportive care, pain management generalized weakness continues family present son, and pneumonia antibiotic therapy with positive response DuoNeb's as needed O2 as needed taking food and PO fluids fairly well. No leukocytosis noted. Anemia, chronic with some acute blood loss status post surgery No further blood given, labs yesterday posted. 7.1 hgb Renal insufficiency, creat more elevated, poss. due to dehydration. Taking PO fluids better today, and encouraged. Continued mild improvement History of enlarged prostate Continue with finasteride 5 mg by mouth daily, medical management\ Constipation abd. taut, patient says no to BM. Ducolax supp yesterday Discharge planning, case management assisted Will review options with the patient and family, hospice versus rehabilitation. Family opted for rehab for strengthing as much as possible. Looking at [facility]. Patient agreeable. Discussed With: Nurse, Family, Other (Dr. Lizararga, seen on his behalf) Emely Osorio Jul 23, 2016 14:06
[2016-07-23] MEDS ORDERED: REMOVE OLD DURAGESIC (FENTANYL) PATCH TD SCH (15:00)
[2016-07-23] MEDS: fentaNYL 25 MCG/HR PATCH TD SCH (15:54)
[2016-07-23] MEDS: AZITHROMYCIN INJ 500 MG in SODIUM CHLOR 0.9% 250 ML INJ 250 ML IV SCH (15:56)
[2016-07-23 16:00] VITALS: BP 114/48; PULSE 68; RESP 17; TEMP 98.6; O2SAT 99
--- NOTE | 2016-07-23 19:10 | HHI.DS ---
Discharge Summary Admission Date Jul 20, 2016 at 10:54 Discharge Date: Jul 23, 2016 Admitting Diagnosis hip fracture, multiple myeloma (1) Intertrochanteric fracture of right hip Diagnosis: Principal (2) Multiple myeloma Diagnosis: Principal (3) Renal insufficiency Diagnosis: Principal (4) Intractable pain Diagnosis: Principal (5) Spinal stenosis Diagnosis: Secondary (6) Anemia Diagnosis: Secondary (7) possible PNA Diagnosis: Principal (8) Bone metastasis Diagnosis: Secondary Procedures rt. hip repair Brief History Pt. was an 89-year-old man with past medical history of enlarged prostate, hypertension. Patient was recently diagnosed with multiple myeloma on July 03 after he was admitted with intractable back pain. He was discharged and was to follow-up with Dr. Razo as well as Dr. Loya to start chemotherapy and palliative radiation radiation. He's had intractable pain and family decided to enroll him in hospice for symptom management. He had not been able to follow up with either Dr. Razo or Dr. Loya. According to the family, patient was having a good day yesterday, had been started on steroids in addition to fentanyl and morphine in this had been managing his pain very well. He was eating more and had been more active than usual. Apparently while they were sleeping, he got out of bed and they heard the patient fall. Patient was in pain at this time, very anxious and information was provided by the patient' s son and . I'm able to communicate with him in [place]. He was complaining of abdominal pain as well as right leg pain. CBC/BMP: 07/22/16 1042 07/22/16 1042 Significant Findings Laboratory Tests Test 07/21/16 07/22/16 05:15 10:42 Red Blood Count 1.86 MIL/MM3 2.03 MIL/MM3 (4.50-5.90) (4.50-5.90) Hemoglobin 6.6 GM/DL 7.1 GM/DL (13.0-17.0) (13.0-17.0) Hematocrit 18.9 % 20.3 % (39.0-51.0) (39.0-51.0) Mean Corpuscular Volume 101.8 FL 100.1 FL (80.0-100.0) (80.0-100.0) Mean Corpuscular Hemoglobin 35.8 PG 34.8 PG (27.0-34.0) (27.0-34.0) Neutrophils (%) (Auto) 81.0 % (16.0-70.0) Lymphocytes # (Auto) 0.8 TH/MM3 (1.0-4.8) Chloride Level 109 MEQ/L 110 MEQ/L (98-107) (98-107) Anion Gap 2 MEQ/L (5-15) 3 MEQ/L (5-15) Blood Urea Nitrogen 56 MG/DL (7-18) 44 MG/DL (7-18) Creatinine 2.08 MG/DL 1.77 MG/DL (0.60-1.30) (0.60-1.30) Estimat Glomerular Filtration 30 ML/MIN (>89) 36 ML/MIN (>89) Rate Random Glucose 116 MG/DL (74-106) Calcium Level 8.4 MG/DL (8.5-10.1) Total Protein 9.2 GM/DL (6.4-8.2) Albumin 2.1 GM/DL (3.4-5.0) Red Cell Distribution Width 17.8 % (11.6-17.2) Imaging Last Impressions Chest X-Ray 07/20/16914 Signed Impressions: Service Date/Time: June 09:38 - CONCLUSION: Diffuse infiltration consistent with moderate pulmonary edema versus pneumonia. Clinical correlation is recommended. Tano Jones MD Hip and Pelvis X-Ray 07/20/16 Signed Impressions: Service Date/Time: June 09:38 - CONCLUSION: Comminuted intratrochanteric fracture on the right with diastases/displacement of the fracture fragments. Ananda Way MD Hip X-Ray 07/20/16 Signed Impressions: Service Date/Time: June 19:39 - CONCLUSION: 1. Fixation right hip fracture. Zeus Nunez MD Chest CT 07/20/16 Signed Impressions: Service Date/Time: June 09:39 - CONCLUSION: 1. Multiple lytic destructive lesions throughout the thoracic spine which have been described in detail in the recent CT of the thoracic spine consistent with multiple myeloma or metastatic disease. 2. Cardiomegaly and coronary artery calcifications. 3. Focal atelectasis and/or scarring within the right lower lobe. 4. Posterior pleural thickening within the lung bases bilaterally. 5. Degenerative changes and scoliosis of the thoracic spine. 6. Focal lytic lesion involving the posterior aspect of the left fifth rib again consistent with metastatic disease or multiple myeloma. No left rib fracture is noted. Tano Jones MD Abdomen/Pelvis CT 07/20/16 0000 Signed Impressions: Service Date/Time: June 09:42 - CONCLUSION: 1. Focal lytic lesion involving the superior medal aspect of the right iliac crest raising the possibility of metastatic disease or myeloma. 2. Acute comminuted intertrochanteric fracture of the right proximal femur. 3. Markedly enlarged prostate gland. 4. Uncomplicated sigmoid diverticulosis. 5. Stable tiny subcentimeter hepatic cyst. 6. Cardiomegaly and coronary artery calcifications. 7. Multiple bilateral renal cysts. 8. Degenerative changes and scoliosis of the thoracolumbar spine. 9. Right lower lobe atelectasis and/or scarring. 10. Posterior bibasilar pleural thickening. 11. Lytic lesions scattered throughout the thoracic spine at multiple levels which have been described on previous examination consistent with multiple myeloma or metastatic disease. Tano Jones MD PE at Discharge GENERAL: This was a slim, male who appeared to be in no acute distress. He was awake, attempting to eat. HEAD: Normocephalic without any lesion or mass noted. Facial features appear symmetric. OROPHARYNGEAL: Oropharynx without erythema or edema. NECK: Supple. No nuchal rigidity or lymphadenopathy. Trachea midline without deviation. CARDIAC: Regular rhythm, regular rate, S1 and S2 are heard. Murmur ; no gallops or rubs. LUNGS: Clear to auscultation bilaterally. no wheeze, No use of accessory muscles on inspiration or expiration. ABDOMEN: Soft, nontender, no organomegaly or masses. Bowel sounds are heard in all four quadrants. No rebound. No guarding. EXTREMITIES: no edema. Pulses intact. Low back pain with movement. NEUROLOGICAL: Patient mood and affect appropriate/flat SKIN:Warm and moist, misti Hospital Course Patient was examined in the emergency room, imaging studies were completed. Last Impressions Chest X-Ray 07/20/16 0915 Signed Impressions: Service Date/Time: June 09:38 - CONCLUSION: Diffuse infiltration consistent with moderate pulmonary edema versus pneumonia. Clinical correlation is recommended. Tano Jones MD Hip and Pelvis X-Ray 07/20/16 0000 Signed Impressions: Service Date/Time: June 09:38 - CONCLUSION: Comminuted intratrochanteric fracture on the right with diastases/displacement of the fracture fragments. Ananda Way MD Chest CT 07/20/16 0000 Signed Impressions: Service Date/Time: June 09:39 - CONCLUSION: 1. Multiple lytic destructive lesions throughout the thoracic spine which have been described in detail in the recent CT of the thoracic spine consistent with multiple myeloma or metastatic disease. 2. Cardiomegaly and coronary artery calcifications. 3. Focal atelectasis and/or scarring within the right lower lobe. 4. Posterior pleural thickening within the lung bases bilaterally. 5. Degenerative changes and scoliosis of the thoracic spine. 6. Focal lytic lesion involving the posterior aspect of the left fifth rib again consistent with metastatic disease or multiple myeloma. No left rib fracture is noted. Tano Jones MD Abdomen/Pelvis CT 07/20/16 0000 Signed Impressions: Service Date/Time: June 09:42 - CONCLUSION: 1. Focal lytic lesion involving the superior medal aspect of the right iliac crest raising the possibility of metastatic disease or myeloma. 2. Acute comminuted intertrochanteric fracture of the right proximal femur. 3. Markedly enlarged prostate gland. 4. Uncomplicated sigmoid diverticulosis. 5. Stable tiny subcentimeter hepatic cyst. 6. Cardiomegaly and coronary artery calcifications. 7. Multiple bilateral renal cysts. 8. Degenerative changes and scoliosis of the thoracolumbar spine. 9. Right lower lobe atelectasis and/or scarring. 10. Posterior bibasilar pleural thickening. 11. Lytic lesions scattered throughout the thoracic spine at multiple levels which have been described on previous examination consistent with multiple myeloma or metastatic disease. Tano Jones MD He was found with right intertrochanteric femur fracture. Dr. Moreno was contacted and the plan is for surgical repair later this afternoon. Patient's and son were in agreement with surgery. They have rescinded hospice services but do plan to enroll him after patient undergoes surgery and possibly rehabilitation. Additionally, patient was found with possible pneumonia. He had been empirically treated with antibiotics. There was no recent report of fever or chills. Hasn't been coughing, no sputum production. He did have renal insufficiency and his creatinine was slightly increased compared to previous values. Patient was admitted for further evaluation and treatment. These are the diagnoses that were used to care for this patient during this hospital stay and his plan of care. (1) Intertrochanteric fracture of right hip (2) Multiple myeloma (3) Renal insufficiency (4) Intractable pain (5) Spinal stenosis (6) Anemia, severe, status post chronic disease and blood loss acute (7) possible PNA (8) Bone metastasis Status post R ORIF right hip, pain management and any other or throat related postop care per ortho. Possible release from ortho perspective on Sunday. Continue with pain management, best managed with fentanyl patches, and Morphine -SCDs for DVT prophylaxis. -[place] in, until day of discharge. No problems with urinary retention Telemetry, SR, rate 67. stable Recent diagnosis of multiple myeloma, no f/u with oncology, still very weak Has had intractable back pain. Currently on fentanyl patch and morphine. -Continue with supportive care, pain management generalized weakness continues family present son, and pneumonia antibiotic therapy with positive response DuoNeb's as needed O2 as needed taking food and PO fluids fairly well. No leukocytosis noted. Anemia, chronic with some acute blood loss status post surgery No further blood given, labs yesterday posted. 7.1 hgb This is the wishes of patient, , and son not to receive any further blood products. Renal insufficiency, creat more elevated, poss. due to dehydration. Taking PO fluids better today, and encouraged. Continued mild improvement History of enlarged prostate Continue with finasteride 5 mg by mouth daily, medical management\ Constipation abd. taut, patient says no to BM. Ducolax supp yesterday, good results Discharge planning, case management assisted Will review options with the patient and family, hospice versus rehabilitation. Family opted for rehab for strengthing as much as possible. Looking at [facility]. Patient agreeable. Pt Condition on Discharge: Stable Discharge Disposition: Discharge to SNF Discharge Instructions DIET: Follow Instructions for: As Tolerated, No Restrictions Activities you can perform: Weight Bearing as Ángel Activities to Avoid: Lifting/Bending Follow up Referrals: Orthopedics - 3 Weeks @ [facility] with Farhan Moreno MD New Medications: Azithromycin (Zithromax) 500 Mg Tab 500 MG PO DAILY Infection #5 Ref 0 TAB Enoxaparin Inj (Lovenox Inj) 30 Mg/0.3 Ml Syr 30 MG SQ Q24H clot prevention #28 INJECTION Ipratropium-Albuterol Neb (Duoneb) 0.5-2.5 Mg/3 Ml Neb 1 AMPULE NEB QID NEB PRN WHEEZING #28 ML Oxycodone-Acetaminophen (Oxycodone-Acetaminophen) 5-325 mg Tab 1 TAB PO Q4H PRN PAIN LESS THAN 5 ON SCALE #30 TAB Continued Medications: Citalopram (Citalopram) 20 Mg Tab 20 MG PO DAILY Control Depression #30 Ref 0 TAB Fentanyl Patch 72 HR (Duragesic Patch 72 HR) 25 Mcg/Hr Patch 1 PATCH TD Q2D Pain Management #10 Ref 0 PATCH (This prescription has been renewed) Finasteride (Finasteride) 5 Mg Tab 5 MG PO DAILY Do not crush. Manage Prostate Problems #30 Ref 0 TAB Morphine ER (Morphine ER) 30 Mg Tab 30 MG PO Q6HR Pain Management #30 Ref 0 TAB (This prescription has been renewed) Pantoprazole (Protonix) 20 Mg Tab 20 MG PO DAILY gerd #30 Ref 0 TAB Emely Osorio Jul 23, 2016 19:10
== END 2016-07-23 20:40 | DRG 480 ==
LOC: NEPC 08:54 → NEDA 10:54 → N06A 22:35
PROVIDERS: ADMIT Specialist; ATTEND Specialist
PROC: 0QS604Z Reposition Right Upper Femur with Internal Fixation Device, Open Approach (ICD-10-PCS; principal; 2016-07-20 19:05)
DX: S72.141A Displaced intertrochanteric fracture of right femur, initial encounter for closed fracture (principal); J18.9 Pneumonia, unspecified organism; C90.00 Multiple myeloma not having achieved remission; C79.51 Secondary malignant neoplasm of bone; D62 Acute posthemorrhagic anemia; W19.XXXA Unspecified fall, initial encounter; N28.9 Disorder of kidney and ureter, unspecified; N40.0 Benign prostatic hyperplasia without lower urinary tract symptoms; I10 Essential (primary) hypertension; M79.604 Pain in right leg; R10.9 Unspecified abdominal pain; M48.00 Spinal stenosis, site unspecified; K59.00 Constipation, unspecified
CPT/HCPCS: 36430; 71010; 71250; 73502; 74176; 76000; 80048; 80053; 84484; 85025; 85027; 85610; 86850; 86900; 86901; 86920; 87040; 93005; 96361; 96374; 96375; C1713; J0131; J0456; J0696; J1170; J1580; J1650; J2270; J2370; J2405; J2710; J3010; J7030; J7050; J7120; P9016